=== PATIENT | female | born 1960 | race Caucasian/White ===

== ENCOUNTER 2024-04-21 09:04 | Outpatient (OUT) | payer OTHER, MEDICAID, SELFPAY ==
--- NOTE | 2024-04-21 | XR_ITS ---
[address] [address] Patient Name: LUÍS GERMAIN MRN: [id number] date: 1960 Sex: F Assigned Patient Location: Current Patient Location: Accession/Order Number: [id number] Exam Date: 04/21/2024 09:25 Report Date: 04/21/2024 10:36 At the request of: DEWAYNE RIVERA Procedure: XR ankle WILLI min 3V EXAMINATION: XR ankle WILLI min 3V, XR foot WILLI min 3V HISTORY: BILATERAL ANKLE PAIN COMPARISON: No relevant comparison available. FINDINGS: RIGHT FINDINGS: BONES: No acute fracture or dislocation. Marked degenerative changes of the midfoot and hindfoot with anterior plantar subluxation of the talus and tibia in relation to the calcaneus. Extensive heterotopic ossification. Multiple plates and screws transfix the first second and third tarsometatarsal joints. Single screw through the head of the first and second metatarsals. SOFT TISSUES: Negative. No visible soft tissue swelling. OTHER: Negative. LEFT FINDINGS: BONES: No acute fracture or dislocation. Marked degenerative changes of the midfoot and hindfoot with anterior plantar subluxation of the talus and tibia in relation to the calcaneus. Extensive heterotopic ossification. Remote fixation of the first tarsometatarsal joint with a medial plate and multiple screws. 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 SOFT TISSUES: Negative. No visible soft tissue swelling. OTHER: Negative. XR/XR ankle WILLI min 3V IMPRESSION: Severe bilateral degenerative changes with marked bony remodeling. Pes planus and anterior plantar subluxation of the talus in relation to the calcaneus Electronically authenticated by: LAURA MEYERS Date: 04/21/2024 10:36
--- NOTE | 2024-04-21 | XR_ITS ---
[address] [address] Patient Name: LUÍS GERMAIN MRN: [id number] date: 1960 Sex: F Assigned Patient Location: Current Patient Location: Accession/Order Number: [id number] Exam Date: 04/21/2024 09:05 Report Date: 04/21/2024 10:36 At the request of: DEWAYNE RIVERA Procedure: XR foot WILLI min 3V EXAMINATION: XR ankle WILLI min 3V, XR foot WILLI min 3V HISTORY: BILATERAL ANKLE PAIN COMPARISON: No relevant comparison available. FINDINGS: RIGHT FINDINGS: BONES: No acute fracture or dislocation. Marked degenerative changes of the midfoot and hindfoot with anterior plantar subluxation of the talus and tibia in relation to the calcaneus. Extensive heterotopic ossification. Multiple plates and screws transfix the first second and third tarsometatarsal joints. Single screw through the head of the first and second metatarsals. SOFT TISSUES: Negative. No visible soft tissue swelling. OTHER: Negative. LEFT FINDINGS: BONES: No acute fracture or dislocation. Marked degenerative changes of the midfoot and hindfoot with anterior plantar subluxation of the talus and tibia in relation to the calcaneus. Extensive heterotopic ossification. Remote fixation of the first tarsometatarsal joint with a medial plate and multiple screws. 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 SOFT TISSUES: Negative. No visible soft tissue swelling. OTHER: Negative. XR/XR foot WILLI min 3V IMPRESSION: Severe bilateral degenerative changes with marked bony remodeling. Pes planus and anterior plantar subluxation of the talus in relation to the calcaneus Electronically authenticated by: LAURA MEYERS Date: 04/21/2024 10:36
== END 2024-04-21 09:05 | disposition home or self-care (01) ==
LOC: EC 09:04
PROVIDERS: Visit Provider Podiatrist Foot & Ankle Surgery
DX: M79.672 Pain in left foot (principal); M79.671 Pain in right foot; M14.671 Charcot's joint, right ankle and foot; M14.672 Charcot's joint, left ankle and foot
CPT/HCPCS: 73610; 73630

== ENCOUNTER 2024-04-27 08:02 | Outpatient (OUT) | payer OTHER, MEDICAID, SELFPAY ==
--- NOTE | 2024-04-27 08:12 | CT_ITS ---
[address] [address] Patient Name: LUÍS GERMAIN MRN: [id number] date: 1960 Sex: F Assigned Patient Location: CT Current Patient Location: CT Accession/Order Number: [id number] Exam Date: 04/27/2024 08:18 Report Date: 04/27/2024 10:28 At the request of: DEWAYNE RIVERA Procedure: CT ankle LT wo con EXAMINATION: CT ankle LT wo con HISTORY: Charcot COMPARISON: 04/21/2024 TECHNIQUE: Multi-planar CT images were created without IV contrast. Dose reduction techniques were achieved by using automated exposure control and/or adjustment of mA and/or kV according to patient size and/or use of iterative reconstruction technique. FINDINGS: BONES: Severe degenerative changes of the midfoot and hindfoot. There is fragmented anterior calcaneus with anterior subluxation of the tibia fibula and talus in relation to the calcaneus. Severe degenerative changes with marked bony remodeling. Flattening of the plantar arch. Marked degenerative changes with joint space narrowing and subchondral cystic changes. Fusion hardware in the forefoot partially visualized SOFT TISSUES: Extensive soft tissue swelling EFFUSION: Large joint effusion OTHER: Negative. CT/CT ankle LT wo con IMPRESSION: Marked degenerative changes with extensive bony remodeling. 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 Electronically authenticated by: LAURA MEYERS Date: 04/27/2024 10:28
== END 2024-04-27 08:03 | disposition home or self-care (01) ==
LOC: CT 08:06
PROVIDERS: Visit Provider Podiatrist Foot & Ankle Surgery
DX: M14.672 Charcot's joint, left ankle and foot (principal)
CPT/HCPCS: 73700

== ENCOUNTER 2024-06-29 09:43 | Outpatient (OUT) | payer OTHER, SELFPAY ==
--- NOTE | 2024-06-29 | XR_ITS ---
The [address] [address] Patient Name: LUÍS GERMAIN MRN: [id number] date: 1960 Sex: F Assigned Patient Location: Current Patient Location: Accession/Order Number: [id number] Exam Date: 06/29/2024 09:44 Report Date: 06/29/2024 11:00 At the request of: DEWAYNE RIVERA Procedure: XR foot WILLI min 3V EXAMINATION: XR ankle WILLI min 3V, XR foot WILLI min 3V HISTORY: BILATERAL ANKLE PAIN COMPARISON: 04/21/2024 FINDINGS: RIGHT FINDINGS: BONES: No acute fracture. Marked degenerative changes with anterior subluxation of the talus in relation to the calcaneus and complete flattening of the plantar arch. Bony remodeling throughout the midfoot and hindfoot. Surgical fusion hardware with fixation across the first second and third tarsometatarsal joints. Single screw across the first and second metatarsal heads. SOFT TISSUES: Negative. No visible soft tissue swelling. OTHER: Negative. LEFT FINDINGS: BONES: No acute fracture. Marked degenerative changes with anterior subluxation of the talus in relation to the calcaneus and flattening of the plantar arch. Severe bony remodeling throughout the midfoot and hindfoot. Fusion of the first tarsometatarsal joint with a plate and multiple screws. Severe degenerative change first metacarpal phalangeal joint SOFT TISSUES: Negative. No visible soft tissue swelling. OTHER: Negative. XR/XR foot WILLI min 3V IMPRESSION: Bilateral marked degenerative changes with pes planus and anterior subluxation of the talus in relation to the calcaneus consistent with neuropathic osteoarthropathy Electronically authenticated by: LAURA MEYERS Date: 06/29/2024 11:00
--- NOTE | 2024-06-29 | XR_ITS ---
The [address] [address] Patient Name: LUÍS GERMAIN MRN: [id number] date: 1960 Sex: F Assigned Patient Location: Current Patient Location: Accession/Order Number: [id number] Exam Date: 06/29/2024 09:44 Report Date: 06/29/2024 11:00 At the request of: DEWAYNE RIVERA Procedure: XR ankle WILLI min 3V EXAMINATION: XR ankle WILLI min 3V, XR foot WILLI min 3V HISTORY: BILATERAL ANKLE PAIN COMPARISON: 04/21/2024 FINDINGS: RIGHT FINDINGS: BONES: No acute fracture. Marked degenerative changes with anterior subluxation of the talus in relation to the calcaneus and complete flattening of the plantar arch. Bony remodeling throughout the midfoot and hindfoot. Surgical fusion hardware with fixation across the first second and third tarsometatarsal joints. Single screw across the first and second metatarsal heads. SOFT TISSUES: Negative. No visible soft tissue swelling. OTHER: Negative. LEFT FINDINGS: BONES: No acute fracture. Marked degenerative changes with anterior subluxation of the talus in relation to the calcaneus and flattening of the plantar arch. Severe bony remodeling throughout the midfoot and hindfoot. Fusion of the first tarsometatarsal joint with a plate and multiple screws. Severe degenerative change first metacarpal phalangeal joint SOFT TISSUES: Negative. No visible soft tissue swelling. OTHER: Negative. XR/XR ankle WILLI min 3V IMPRESSION: Bilateral marked degenerative changes with pes planus and anterior subluxation of the talus in relation to the calcaneus consistent with neuropathic osteoarthropathy Electronically authenticated by: LAURA MEYERS Date: 06/29/2024 11:00
--- OUTSIDE RECORDS SUMMARY | 2024-06-29 10:06 | XMS_ITS | CCD ---
Author Organization [facility] CliniSyde Care Team Providers Care Change Analyst Name Role Phone MARY KATE MARS Unavailable Unavailable MARY KATE MARS Unavailable Unavailable MISC, DOCTOR Unavailable Unavailable MARY KATE MARS Unavailable Unavailable Pardeep Cordon Primary Care Provider Pardeep Cordon Primary Care Provider Pardeep Cordon DO Primary Care Provider Pardeep Cordon DO Primary Care Provider Pardeep Cordon DO Primary Care Provider Pardeep Cordon DO Primary Care Provider Pardeep Cordon DO Primary Care Provider Pardeep Cordon DO Primary Care Provider MARÍA, FERNANDA Referring Unavailable BRAVO, PARDEEP C Primary Care Unavailable MARÍA, FERNANDA Referring Unavailable BRAVO, PARDEEP C Primary Care Unavailable BRAVO, PARDEEP C Primary Care Unavailable MARÍA, FERNANDA Referring Unavailable BRAVO, PARDEEP C Primary Care Unavailable MARÍA, FERNANDA Referring Unavailable BRAVO, PARDEEP C Primary Care Unavailable MARÍA, FERNANDA Referring Unavailable MARQUISEAUD, PARDEEP C Primary Care Unavailable MARÍA, FERNANDA Referring Unavailable MARQUISEAUD, PARDEEP C Primary Care Unavailable MARÍA, FERNANDA Referring Unavailable BRAVO, PARDEEP C Primary Care Unavailable MARÍA, FERNANDA Referring Unavailable BRAVO, PARDEEP C Primary Care Unavailable Pardeep oCrdon DO Primary Care Provider PARDEEP CORDON C Primary Care Unavailable RAJESH ARAYA Unavailable BRAVO, PARDEEP C Referring Unavailable NADLAUREEN, PARDEEP C Primary Care Unavailable BRAVO, PARDEEP C Primary Care Unavailable BRAVO, PARDEEP C Primary Care Unavailable BRAVO, PARDEEP C Primary Care Unavailable BRAVO, PARDEEP C Referring Unavailable NADAUD, PARDEEP C Primary Care Unavailable MARÍA, FERNANDA Referring Unavailable PARDEEP CORDON Primary Care Unavailable PARDEEP CORDON Attending Unavailable PARDEEP CORDON Attending Unavailable PARDEEP CORDON Attending Unavailable Allergies Allergy Classification Reported Allergen(s) Allergy Type Date of Onset Reaction(s) Facility Penicillins (antibiotic) (1 source) Penicillins Drug Allergy 11-15-19 15 [facility] Sulfamethoxazole / Trimethoprim (1 source) Sulfamethoxazole / Trimethoprim Drug Allergy 11-15-19 15 [facility] (11 sources) Penicillins Propensity to adverse reactions to drug 11-15-19 15 [place], [place] (20 sources) Sulfamethoxazole / Trimethoprim Drug Allergy 11-15-19 15 [place], [place] (11 sources) Penicillins Propensity to adverse reactions to drug 11-15-19 15 [facility] Work Phone: Medications Current Medications Medication Drug Class(es) Dates Sig (Normalized) Sig (Original) Acetaminophen / Codeine (6 sources) Opioid Agonist Acetaminophen-C odeine (TYLENOL WITH CODEINE #3 PO) Take by mouth 4 times daily as needed. 0 Active bisoprolol fumarate 5 mg / hydroCHLOROthiazide 6.25 mg oral tablet (17 sources) Thiazide Diuretic, beta-Adrenergic [facility] Start: 08-21-2020 bisoprolol-hydr oCHLOROthiazide (ZIAC) 5-6.25 MG per tablet 24 hr buPROPion hydrochloride 300 mg extended release oral tablet (20 sources) Aminoketone take 1 tablet by mouth once daily in the morning buPROPion (WELLBUTRIN XL) 300 MG XL tablet Take 1 tablet by mouth every morning 0 Active busPIRone hydrochloride 30 mg oral tablet (20 sources) Start: 09-02-2020 busPIRone (BUSPAR) 30 MG tablet take 1 tablet by mouth twice josé miguel ly busPIRone (BUSPAR) 15 MG tablet Take 15 mg by mouth 2 times daily 0 Active calcium carbonate 1250 mg / cholecalciferol 125 unt oral tablet (16 sources) Vitamin D take 1 tablet by mouth twice daily Calcium 500-125 MG-UNIT TABS Take 1 tablet by mouth 2 times daily 0 Active celecoxib 200 mg oral capsule (20 sources) Nonsteroidal Anti-inflammatory Drug Start: 0 celecoxib (CELEBREX) 200 MG capsule take 1 capsule by mouth twice da april celecoxib (CELEBREX) 200 MG capsule Take 200 mg by mouth 2 times daily. 0 Active cholestyramine resin 4000 mg powder for oral suspension (14 sources) Bile Acid Sequestrant Start: 04-30-2022 cholestyramine (QUESTRAN) 4 GM/DOSE powder MIX 1 SCOOP IN 8 OUNCES OF LIQUID AND DRINK ONCE DAILY FOR 5 DAYS. 0 04/30/2022 Active cyclobenzaprine hydrochloride 10 mg oral tablet (14 sources) Muscle Relaxant Start: 04-30-2022 take 1 tablet by mouth twice daily as needed cyclobenzaprine (FLEXERIL) 10 MG tablet TAKE 1 TABLET BY MOUTH TWICE DAILY FOR 30 DAYS NEEDED 0 04/30/2022 Active ferrous sulfate 325 mg oral tablet (20 sources) take 1 tablet by mouth twice daily ferrous sulfate 325 (65 FE) MG tablet Take 1 tablet by mouth 2 times daily 0 Active FLUoxetine 40 mg oral capsule (17 sources) Serotonin Reuptake Inhibitor take 1 capsule by mouth once daily FLUoxetine (PROZAC) 40 MG capsule Take 1 capsule by mouth daily 0 Active gabapentin 300 mg oral capsule (13 sources) Anti-epileptic Agent Start: 07-18-2023 take 1 capsule by mouth three times daily gabapentin (NEURONTIN) 300 MG capsule Indications: Right foot pain TAKE 1 CAPSULE BY MOUTH THREE TIMES DAILY FOR 90 DAYS 90 capsule 2 07/18/2023 Active Start: 04-29-2023 End: 06-03-2023 take 1 capsule by mouth three times daily gabapentin (NEURONTIN) 300 MG capsule Indications: Right foot pain TAKE 1 CAPSULE BY MOUTH THREE TIMES DAILY FOR 90 DAYS 90 capsule 2 04/29/2023 Active Start: 08-12-2022 End: 02-21-2023 take 1 capsule by mouth three times daily gabapentin (NEURONTIN) 300 MG capsule Indications: Right foot pain TAKE 1 CAPSULE BY MOUTH THREE TIMES DAILY FOR 90 DAYS 90 capsule 2 01/22/2023 02/21/2023 Active Start: 07-24-2022 End: 10-22-2022 gabapentin (NEURONTIN) 100 M G capsule Take 1 capsule by mouth 3 times daily for 90 days. Intended supply: 30 days 90 capsule 2 07/24/2022 08/12/2022 Discontinued (Therapy completed) meloxicam 15 mg oral tablet (17 sources) Nonsteroidal Anti-inflammatory Drug take 1 tablet by mouth once daily meloxicam (MOBIC) 15 MG tablet Take 1 tablet by mouth daily 0 Active Misc. Devices MISC (13 sources) Start: 022 Misc. Devices MISC Indications: Charcot ankle, right , Right foot pain Please dispense 1 Qagan [place]ungin Boot Length: Lifetime 1 each 0 07/22/2022 Active ofloxacin 3 mg/ml ophthalmic solution (16 sources) Quinolone Antimicrobial Start: 021 ofloxacin (OCUFLOX) 0.3 % solution INSTILL 10 DROPS INTO AFFECTED EAR ONCE DAILY FOR 7 DAYS 0 11/30/2020 Active omeprazole 20 mg delayed release oral capsule (20 sources) Proton Pump Inhibitor Start: 015 take 1 capsule by mouth once daily omeprazole (PRILOSEC) 20 MG capsule Take 1 capsule by mouth daily. 30 capsule 0 11/15/2014 Active pantoprazole 20 mg delayed release oral tablet (1 source) Proton Pump Inhibitor Start: 023 take 1 tablet by mouth once daily pantoprazole (PROTONIX) 20 MG tablet Take 1 tablet by mouth daily 30 tablet 0 08/25/2023 Active SUMAtriptan 100 mg oral tablet (17 sources) Serotonin-1b and Serotonin-1d Receptor Agonist Start: 020 SUMAtriptan (IMITREX) 100 MG tablet traMADol hydrochloride 50 mg oral tablet (17 sources) Opioid Agonist take 1 tablet by mouth every six hours as needed for pain traMADol (ULTRAM) 50 MG tablet Take 1 tablet by mouth every 6 hours as needed for Pain. 0 Active valACYclovir 500 mg oral tablet (17 sources) Herpesvirus Nucleoside Analog DNA Polymerase Inhibitor, Herpes Simplex Virus Nucleoside Analog DNA Polymerase Inhibitor, Herpes Zoster Virus Nucleoside Analog DNA Polymerase Inhibitor Start: 020 valACYclovir (VALTREX) 500 MG tablet Completed/Discontinued Medications Medication Drug Class(es) Dates Sig (Normalized) Sig (Original) 10 ml lidocaine hydrochloride 10 mg/ml injection (20 sources) Antiarrhythmic, Amide Local Anesthetic Start: 06-17-2023 End: 06-17-2023 lidocaine PF 1 % injection Start: 12-10-2022 End: 12-10-2022 lidocaine PF 2 % injection Start: 12-10-2022 End: 12-10-2022 lidocaine PF 1 % injection Start: 10-28-2022 End: 10-28-2022 lidocaine PF 2 % injection Start: 10-28-2022 End: 10-28-2022 lidocaine PF 1 % injection Start: 08-15-2020 lidocaine (LID ODERM) 5 % 5 ml sodium chloride 9 mg/ml injection (2 sources) Start: 12-10-2022 End: 12-10-2022 sodium chloride flush 0.9 % injection Start: 10-28-2022 End: 10-28-2022 sodium chloride flush 0.9 % injection 1 ml triamcinolone acetonide 40 mg/ml prefilled syringe (2 sources) Corticosteroid Start: 12-10-2022 End: 12-10-2022 triamcinolone acetonide (KENALOG-40) injection Start: 10-28-2022 End: 10-28-2022 triamcinolone acetonide (ARON ALOG-40) injection Problems Active Problems Problem Classification Problem Date Documented Date Episodic/Chronic Abdominal pain (1 source) Epigastric pain; Translations: [Epigastric pain] Onset: 08-25-2023 Episodic Essential hypertension (2 sources) Essential (primary) hypertension; Translations: [Essential (primary) hypertension] Onset: 03-21-2023 Chronic Nonmalignant breast conditions (4 sources) Breasts asymmetrical; Translations: [Breast asymmetry] Chronic Nutritional deficiencies (2 sources) Vitamin D deficiency, unspecified; Translations: [Vitamin D deficiency, unspecified] Onset: 03-21-2023 Chronic Other connective tissue disease (10 sources) Pain in left foot; Translations: [Pain in left foot] Onset: 12-25-2022 Episodic Other connective tissue disease (18 sources) Pain in right foot; Translations: [Pain in right foot] Onset: 07-24-2022 Episodic Other connective tissue disease (19 sources) Neuralgia; Translations: [Neuralgia and neuritis, unspecified] Onset: 07-24-2022 Episodic Other nervous system disorders (5 sources) Lesion of right sciatic nerve; Translations: [Lesion of sciatic nerve, right lower limb] Onset: 05-19-2023 Chronic Other nervous system disorders (5 sources) Lesion of left sciatic nerve; Translations: [Lesion of sciatic nerve, left lower limb] Onset: 05-19-2023 Chronic Other nervous system disorders (1 source) Lesion of sciatic nerve, right lower limb; Translations: [Lesion of sciatic nerve, right lower limb] Onset: 05-19-2023 Chronic Other nervous system disorders (1 source) Lesion of sciatic nerve, left lower limb; Translations: [Lesion of sciatic nerve, left lower limb] Onset: 05-19-2023 Chronic Other nervous system disorders (2 sources) Chronic pain syndrome; Translations: [Chronic pain syndrome] Onset: 03-21-2023 Chronic Other non-traumatic joint disorders (19 sources) Charcot's joint of foot; Translations: [Charcot's joint, left ankle and foot] Onset: 07-24-2022 Chronic Other non-traumatic joint disorders (1 source) Charcot's joint, right ankle and foot; Translations: [Charcot's joint, right ankle and foot] Onset: 07-24-2022 Chronic Other nutritional; endocrine; and metabolic disorders (2 sources) Morbid (severe) obesity due to excess calories; Translations: [Morbid (severe) obesity due to excess calories] Onset: 03-21-2023 Chronic Other screening for suspected conditions (not mental disorders or infectious disease) (12 sources) Encounter for screening for malignant neoplasm of cervix; Translations: [Patient encounter status] Onset: 08-04-2018 Episodic Residual codes; unclassified (1 source) Postmenopausal state; Translations: [Post-menopausal] Episodic Residual codes; unclassified (2 sources) Patient encounter status; Translations: [Pain, unspecified] Episodic Residual codes; unclassified (1 source) Pain, unspecified; Translations: [Pain, unspecified] Onset: 05-27-2023 Episodic Thyroid disorders (2 sources) Hypothyroidism, unspecified; Translations: [Hypothyroidism, unspecified] Onset: 03-21-2023 Chronic Unclassified (1 source) Patient encounter status; Translations: [Screening mammogram, encounter for] Past or Other Problems Problem Classification Problem Date Documented Da te Episodic/Chronic Other aftercare (14 sources) Drug therapy finding; 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] Onset: 08-12-2022 Episodic Other connective tissue disease (1 source) Pain in left foot; Translations: [Pain in left foot] Onset: 12-25-2022 Episodic Other connective tissue disease (1 source) Pain in right foot; Translations: [Pain in right foot] Onset: 07-24-2022 Episodic Other connective tissue disease (1 source) Neuralgia and neuritis, unspecified; Translations: [Neuralgia and neuritis, unspecified] Onset: 07-24-2022 Episodic Spondylosis; intervertebral disc disorders; other back problems (14 sources) Sciatica; Translations: [Sciatica, left side] Onset: 11-11-2022 Episodic Results Test Name Value Interpretation Reference Range Facility Basic Metabolic Profon 08-25 Anion gap [Moles/Vol] 10 mmol/L Normal 9-17 [facility] Comment on above: Performed By: #### L IVP, TROPI, MG, LIP, BMP, CDP #### [facility] [address] [facility] [place] [address] Urology Surgeon: Rodrigue Kurtz DO Calcium [Mass/Vol] 9.1 mg/dL Normal 8.6-10.4 [facility] Comment on above: Performed By: #### L IVP, TROPI, MG, LIP, BMP, CDP #### [facility] [address] [facility] [place] [address] Urology Surgeon: Rodrigue Kurtz DO Chloride [Moles/Vol] 103 mmol/L Normal 98-107 [facility] Comment on above: Performed By: #### L IVP, TROPI, MG, LIP, BMP, CDP #### [facility] [address] [facility] [place] [address] Urology Surgeon: Rodrigue Kurtz DO CO2 [Moles/Vol] 27 mmol/L Normal 20-31 [facility] Comment on above: Performed By: #### L IVP, TROPI, MG, LIP, BMP, CDP #### [facility] [address] [facility] [place] [address] Urology Surgeon: Rodrigue Kurtz DO Creatinine [Mass/Vol] 0.5 mg/dL Normal 0.5-0.9 [facility] Comment on above: Performed By: #### L IVP, TROPI, MG, LIP, BMP, CDP #### [facility] [address] [facility] [place] [address] Urology Surgeon: Rodrigue Kurtz DO GFR/1.73 sq M.predicted among non-blacks MDRD (S/P/Bld) [Vol rate/Area] mL/min/{1.73_m2} Normal >60 [facility] Comment on above: Result Comment: These results are not intended for use in patients <18 years of age. eGFR results are calculated without a race factor using the 2020 CKD-EPI equation. Careful clinical correlation is recommended, particularly when comparing to results calculated using previous equations. The CKD-EPI equation is less accurate in patients with extremes of muscle mass, extra-renal metabolism of creatine, excessive creatine ingestion, or following therapy that affects renal tubular secretion. Performed By: #### L IVP, TROPI, MG, LIP, BMP, CDP #### [facility] [address] [facility] [place] [address] Urology Surgeon: Rodrigue Kurtz DO Glucose [Mass/Vol] 92 mg/dL Normal 70-99 [facility] Comment on above: Performed By: #### L IVP, TROPI, MG, LIP, BMP, CDP #### [facility] [address] [facility] [place] [address] Urology Surgeon: Rodrigue Kurtz DO Potassium [Moles/Vol] 4.2 mmol/L Normal 3.7-5.3 [facility] Comment on above: Performed By: #### L IVP, TROPI, MG, LIP, BMP, CDP #### [facility] [address] [facility] [place] [address] Urology Surgeon: Rodrigue Kurtz DO Sodium [Moles/Vol] 140 mmol/L Normal 135-144 [facility] Comment on above: Performed By: #### L IVP, TROPI, MG, LIP, BMP, CDP #### [facility] [address] [facility] [place] [address] Urology Surgeon: Rodrigue Kurtz DO Urea nitrogen [Mass/Vol] 24 mg/dL High 8-23 [facility] Comment on above: Performed By: #### L IVP, TROPI, MG, LIP, BMP, CDP #### [facility] [address] [place] [address] Urology Surgeon: Rodrigue Kurtz DO CBC with Diffon 08-25-2023 Abs. Basophil 0.00 k/uL Normal 0.0-0.2 [facility] Comment on above: Performed By: #### L IVP, TROPI, MG, LIP, BMP, CDP #### [facility] [address] [place] [address] Urology Surgeon: Rodrigue Kurtz DO Abs.Neutrophil (Seg) 3.70 k/uL Normal 1.3-9.1 [facility] Comment on above: Performed By: #### L IVP, TROPI, MG, LIP, BMP, CDP #### [facility] [address] [place] [address] Urology Surgeon: Rodrigue Kurtz DO Basophils/100 WBC (Bld) 1 % Normal 0-2 [facility] Comment on above: Performed By: #### L IVP, TROPI, MG, LIP, BMP, CDP #### [facility] [address] [place] [address] Urology Surgeon: Rodrigue Kurtz DO Eosinophils (Bld) [#/Vol] 0.10 10*3/uL Normal 0.0-0.4 [facility] Comment on above: Performed By: #### L IVP, TROPI, MG, LIP, BMP, CDP #### [facility] [address] [place] [address] Urology Surgeon: Rodrigue Kurtz DO Eosinophils/100 WBC (Bld) 2 % Normal 0-4 [facility] Comment on above: Performed By: #### L IVP, TROPI, MG, LIP, BMP, CDP #### [facility] [address] [facility] [place] [address] Urology Surgeon: Rodrigue Kurtz DO Erythrocyte distribution width (RBC) [Ratio] 13.8 % Normal 11.5-14.9 [facility] Comment on above: Performed By: #### L IVP, TROPI, MG, LIP, BMP, CDP #### [facility] [address] [facility] [place] [address] Urology Surgeon: Rodrigue Kurtz DO Hematocrit (Bld) [Volume fraction] 38.3 % Normal 36-46 [facility] Comment on above: Performed By: #### L IVP, TROPI, MG, LIP, BMP, CDP #### [facility] [place] [facility] [place] [address] Urology Surgeon: Rodrigue Kurtz DO Hemoglobin (Bld) [Mass/Vol] 12.8 g/dL Normal 12.0-16.0 [facility] Comment on above: Performed By: #### L IVP, TROPI, MG, LIP, BMP, CDP #### [facility] [place] [place] [address] Urology Surgeon: Rodrigue Kurtz DO Lymphocytes (Bld) [#/Vol] 1.60 10*3/uL Normal 1.0-4.8 [facility] Comment on above: Performed By: #### L IVP, TROPI, MG, LIP, BMP, CDP #### [facility] [address] [place] [address] Urology Surgeon: Rodrigue Kurtz DO Lymphocytes/100 WBC (Bld) 26 % Normal 24-44 [facility] Comment on above: Performed By: #### L IVP, TROPI, MG, LIP, BMP, CDP #### [facility] [address] [place] [address] Urology Surgeon: Rodrigue Kurtz DO MCH (RBC) [Entitic mass] 31.6 pg Normal 26-34 [facility] Comment on above: Performed By: #### L IVP, TROPI, MG, LIP, BMP, CDP #### [facility] [address] [place] [address] Urology Surgeon: Rodrigue Kurtz DO MCHC (RBC) [Mass/Vol] 33.3 g/dL Normal 31-37 [facility] Comment on above: Performed By: #### L IVP, TROPI, MG, LIP, BMP, CDP #### [facility] [place] [place] [address] Urology Surgeon: Rodrigue Kurtz DO MCV (RBC) [Entitic vol] 94.9 fL Normal 80-100 [facility] Comment on above: Performed By: #### L IVP, TROPI, MG, LIP, BMP, CDP #### [facility] [place] [place] [address] Urology Surgeon: Rodrigue Kurtz DO Monocytes (Bld) [#/Vol] 0.60 10*3/uL Normal 0.1-1.3 [facility] Comment on above: Performed By: #### L IVP, TROPI, MG, LIP, BMP, CDP #### [facility] [place] [place] [address] Urology Surgeon: Rodrigue Kurtz DO Monocytes/100 WBC (Bld) 11 % High 1-7 [facility] Comment on above: Performed By: #### L IVP, TROPI, MG, LIP, BMP, CDP #### [facility] [address] [place] [address] Urology Surgeon: Rodrigue Kurtz DO Neutrophil (Seg) 60 % Normal 36-66 [facility] Comment on above: Performed By: #### L IVP, TROPI, MG, LIP, BMP, CDP #### [facility] [address] [place] [address] Urology Surgeon: Rodrigue Kurtz DO Platelet mean volume (Bld) [Entitic vol] 8.1 fL Normal 6.0-12.0 [facility] Comment on above: Performed By: #### L IVP, TROPI, MG, LIP, BMP, CDP #### [facility] [address] [place] [address] Urology Surgeon: Rodrigue Kurtz DO Platelets (Bld) [#/Vol] 289 10*3/uL Normal 150-450 [facility] Comment on above: Performed By: #### L IVP, TROPI, MG, LIP, BMP, CDP #### [facility] [address] [place] [address] Urology Surgeon: Rodrigue Kurtz DO RBC (Bld) [#/Vol] 4.04 10*6/uL Normal 4.0-5.2 [facility] Comment on above: Performed By: #### L IVP, TROPI, MG, LIP, BMP, CDP #### [facility] [address] [place] [address] Urology Surgeon: Rodrigue Kurtz DO WBC (Bld) [#/Vol] 6.0 10*3/uL Normal 3.5-11.0 [facility] Comment on above: Performed By: #### L IVP, TROPI, MG, LIP, BMP, CDP #### [facility] [place] [place] [address] Urology Surgeon: Rodrigue Kurtz DO CTA CHEST ABDOMEN PELVIS W C [facility] 08-25-2023 CTA CHEST ABDOMEN PELVIS W CONTRAST EXAMINATION: CTA OF THE CHEST, ABDOMEN AND PELVIS WITH CONTRAST 08/25/2023 10:07 am: TECHNIQUE: CTA of the chest, abdomen and pelvis was performed after the administration of intravenous contrast. Multiplanar reformatted images are provided for review. MIP images are provided for review. Automated exposure control, iterative reconstruction, and/or weight based adjustment of the mA/kV was utilized to reduce the radiation dose to as low as reasonably achievable. COMPARISON: CT abdomen pelvis 11/15/2014 HISTORY: ORDERING SYSTEM PROVIDED HISTORY: epigastric pain, radiation through to back, unable to visualize aorta on POCUS, TECHNOLOGIST PROVIDED HISTORY: epigastric pain, radiation through to back, unable to visualize aorta on POCUS, Decision Support Exception - unselect if not a suspected or confirmed emergency medical condition->Emergency Medical Condition (MA) Reason for Exam: epigastric pain, radiation through to back, unable to visualize aorta on POCUS, Additional signs and symptoms: HTN FINDINGS: CTA CHEST: Vascular: No evidence of thoracic aortic aneurysm or dissection. Mild atherosclerotic calcifications. No acute abnormality of the aorta. Pulmonary arteries show no evidence for acute pulmonary embolism. Mediastinum: The cardiac size is normal. Mild coronary artery calcifications.. There is no significant mediastinal, hilar or axillary lymphadenopathy. The thyroid gland shows no significant abnormalities. The esophagus shows no significant abnormalities. Lungs/Pleura: 11 mm nonspecific patchy ground-glass density in the posteromedial middle lobe along the minor fissure. No significant solid lung nodule or mass. No focal consolidation. No pleural effusion or pneumothorax. Soft Tissues/Bones: No acute bone or soft tissue abnormality. CTA ABDOMEN: Abdominal aorta/Branches: No evidence for aneurysm or dissection. No acute process. Satisfactory enhancement of celiac trunk, SMA, RUFUS, renal arteries. Organs: The liver, spleen, pancreas, kidneys and adrenal glands show no significant abnormality. Gallbladder shows no significant abnormality. GI/Bowel: There is limited evaluation due to absence of oral contrast. Postsurgical changes of gastric bypass. No bowel obstruction. No acute infective process. Peritoneum/Retroperit oneum: No free fluid or lymphadenopathy. Bones/Soft Tissues: No acute abnormality of the bones. The superficial soft tissues show no acute process. CTA PELVIS: Aorta/Iliacs: Normal enhancement. No aneurysm or dissection. Other: Pelvic organs unremarkable. Bones/Soft Tissues: No acute abnormality of the bones. The superficial soft tissues show no acute process. IMPRESSION: 1. No evidence for aortic aneurysm or dissection. 2. Nonspecific 11 mm ground-glass density in the posteromedial lateral segment middle lobe. Please see follow-up recommendations below. 3. No acute infective or inflammatory process. RECOMMENDATIONS: 11 mm ground-glass pulmonary nodule.Per Fleischner Society Guidelines, recommend a non-contrast Chest CT at 6 months to confirm persistence, then additional non-contrast Chest CTs every 2 years until 5 years. If nodule grows or develops solid component(s), consider resection.These guidelines do not apply to immunocompromised patients and patients with cancer. Follow up in patients with significant comorbidities as clinically warranted. For lung cancer screening, adhere to Lung-RADS guidelines. Reference: Radiology. 2017; 284(1):228-43. Interpreted by: Louie Kamara MD Signed by: Louie Kamara MD 08/25/23 Final result Normal [facility] Lactic Acidon 08-25-2023 Lactate [Moles/Vol] 0.7 mmol/L Normal 0.5-2.2 [facility] Comment on above: Performed By: #### L ACTIC #### [facility] [address] [facility] [place] [address] Urology Surgeon: Rodrigue Kurtz DO Lipaseon 08-25-2023 Lipase [Catalytic activity/Vol] 31 U/L Normal 13-60 [facility] Comment on above: Performed By: #### L IVP, TROPI, MG, LIP, BMP, CDP #### [facility] [address] [facility] [place] [address] Urology Surgeon: Rodrigue Kurtz DO Liver Profileon 08-25-2023 Albumin [Mass/Vol] 4.4 g/dL Normal 3.5-5.2 [facility] Comment on above: Performed By: #### L IVP, TROPI, MG, LIP, BMP, CDP #### [facility] [address] [facility] [place] [address] Urology Surgeon: Rodrigue Kurtz DO Alkaline Phos 109 U/L High 35-104 [facility] Comment on above: Performed By: #### L IVP, TROPI, MG, LIP, BMP, CDP #### [facility] [address] [place] [address] Urology Surgeon: Rodrigue Kurtz DO ALT [Catalytic activity/Vol] 31 U/L Normal 5-33 [facility] Comment on above: Performed By: #### L IVP, TROPI, MG, LIP, BMP, CDP #### [facility] [address] [place] [address] Urology Surgeon: Rodrigue Kurtz DO AST [Catalytic activity/Vol] 49 U/L High <32 [facility] Comment on above: Performed By: #### L IVP, TROPI, MG, LIP, BMP, CDP #### [facility] [address] [facility] [place] [address] Urology Surgeon: Rodrigue Kurtz DO Bilirubin [Mass/Vol] 0.5 mg/dL Normal 0.3-1.2 [facility] Comment on above: Performed By: #### L IVP, TROPI, MG, LIP, BMP, CDP #### [facility] [address] [facility] [place] [address] Urology Surgeon: Rodrigue Kurtz DO Bilirubin, Indirect 0.4 mg/dL Normal 0.0-1.0 [facility] Comment on above: Performed By: #### L IVP, TROPI, MG, LIP, BMP, CDP #### [facility] [address] [facility] [place] [address] Urology Surgeon: Rodrigue Kurtz DO Bilirubin.indirect [Mass/Vol] 0.1 mg/dL Normal <0.3 [facility] Comment on above: Performed By: #### L IVP, TROPI, MG, LIP, BMP, CDP #### [facility] [address] [facility] [place] [address] Urology Surgeon: Rodrigue Kurtz DO Protein [Mass/Vol] 7.1 g/dL Normal 6.4-8.3 [facility] Comment on above: Performed By: #### L IVP, TROPI, MG, LIP, BMP, CDP #### [facility] [address] [place] [address] Urology Surgeon: Rodrigue Kurtz DO Magnesiumon 08-25-2023 Magnesium [Mass/Vol] 2.1 mg/dL Normal 1.6-2.6 [facility] Comment on above: Performed By: #### L IVP, TROPI, MG, LIP, BMP, CDP #### [facility] [place] [place] [address] Urology Surgeon: Rodrigue Kurtz DO Troponinon 08-25-2023 Troponin, High Sens 13 ng/L Normal 0-14 [facility] Comment on above: Result Comment: High Sensitivity Troponin values cannot be compared with other Troponin methodologies. Performed By: #### L IVP, TROPI, MG, LIP, BMP, CDP #### [facility] [place] [place] [address] Urology Surgeon: Rodrigue Kurtz DO UA w/Reflex Cultureon 2022 Bilirubin, SemiQt,Ur Negative Normal NEG [facility] Comment on above: Performed By: #### U AX #### [facility] [place] [place] [address] Urology Surgeon: Rodrigue Kurtz DO Blood, Urine Negative Normal NEG [facility] Comment on above: Performed By: #### U AX #### [facility] [place] [address] Urology Surgeon: Rodrigue Kurtz DO Clarity (U) Clear Normal CLEAR [facility] Comment on above: Performed By: #### U AX #### [facility] [place] [place] [address] Urology Surgeon: Rodrigue Kurtz DO Color (U) Yellow Normal YEL [facility] Comment on above: Performed By: #### U AX #### [facility] [address] [place] [address] Urology Surgeon: Rodrigue Kurtz DO Comment Microscopic exam not performed based on chemical results unless requested in Normal [facility] Comment on above: Result Comment: orig inal order. Performed By: #### U AX #### [facility] [place] [place] [address] Urology Surgeon: Rodrigue Kurtz DO Glucose Ql (U) Negative Normal NEG [facility] Comment on above: Performed By: #### U AX #### [facility] [address] [place] [address] Urology Surgeon: Rodrigue Kurtz DO Ketones Ql (U) Negative Normal NEG [facility] Comment on above: Performed By: #### U AX #### [facility] [address] [place] [address] Urology Surgeon: Rodrigue Kurtz DO Leukocyte esterase Test strip Ql (U) Negative Normal NEG [facility] Comment on above: Performed By: #### U AX #### [facility] [address] [place] [address] Urology Surgeon: Rodrigue Kurtz DO Nitrite,Ur Negative Normal NEG [facility] Comment on above: Performed By: #### U AX #### [facility] [address] [place] [address] Urology Surgeon: Rodrigue Kurtz DO PH,Ur 6.0 Normal 5.0-8.0 [facility] Comment on above: Performed By: #### U AX #### [facility] [address] [place] [address], [place] [address] Urology Surgeon: Rodrigue Kurtz DO Protein Ql (U) Negative Normal NEG [facility] Comment on above: Performed By: #### U AX #### [facility] [address] [facility] [place] [address] Urology Surgeon: Rodrigue Kurtz DO Spec. [place],Ur 1.020 Normal 1.000-1.[address] [facility] Comment on above: Performed By: #### U AX #### [facility] [address] [facility] [place] [address] Urology Surgeon: Rodrigue Kurtz DO Urobilinogen,Ur Normal Normal 0.0-1.0 [facility] Comment on above: Performed By: #### U AX #### [facility] [address] [place] [address]. [place] [address] Urology Surgeon: Rodrigue Kurtz DO XAVIER ISHAAN DIGITAL SCREEN SELF REFERRAL W OR WO CAD BILATERALon 08-20-2023 XAVIER ISHAAN DIGITAL SCREEN SELF REFERRAL W OR WO CAD BILATERAL EXAMINATION: SCREENING DIGITAL BILATERAL MAMMOGRAM WITH TOMOSYNTHESIS, 08/20/2023 TECHNIQUE: Screening mammography of the bilateral breasts was performed with tomosynthesis. 2D standard and 3D tomosynthesis combination imaging performed through both breasts in the MLO and CC projection. Computer aided detection was utilized in the interpretation of this exam. COMPARISON: 20 August 2022; 07 May 2021 HISTORY: Screening. Positive family history of breast cancer; sister at age 62. No hormonal replacement therapy or breast interventions. FINDINGS: Breasts are composed of scattered fibroglandular density. No skin thickening, nipple contour changes, suspicious calcifications, suspicious masses, areas of architectural distortion or significant interval changes are noted. IMPRESSION: No evidence of malignancy. Advise annual screening mammography. BI-RADS 1 BIRADS: BIRADS - CATEGORY 1 Negative, no evidence of malignancy. Normal interval follow-up is recommended in 12 months. OVERALL ASSESSMENT - NEGATIVE A letter of notification will be sent to the patient regarding the results. [employer] recommends annual mammograms for women 40 years and older. Interpreted by: Eloisa Feldman MD Signed by: Eloisa Feldman MD 08/20/23 Final result Normal [facility] CBCon 03-21-2023 Erythrocyte distribution width (RBC) [Ratio] 13.1 % Normal 11.5-14.9 [facility] Comment on above: Performed By: #### C P, FT4, LIPR, TSH, CBC ####[facility] [id number] [place], [place] [address])[phone] Director: Rodrigue Kurtz DO#### VD25, UA ####[address] [address])[phone] Director: Jose Fraser MD Hematocrit (Bld) [Volume fraction] 38.5 % Normal 36-46 [facility] Comment on above: Performed By: #### C P, FT4, LIPR, TSH, CBC ####[facility] [address] [place], [place] [address])[phone] Director: Rodrigue Kurtz DO#### VD25, UA ####[address] [address] Lab Director: Jose Fraser MD Hemoglobin (Bld) [Mass/Vol] 12.8 g/dL Normal 12.0-16.0 [facility] Comment on above: Performed By: #### C P, FT4, LIPR, TSH, CBC ####[facility] [id number] [place], [place] [address])[phone] Director: Rodrigue Kurtz DO#### VD25, UA ####[address] [address] Lab Director: Jose Fraser MD MCH (RBC) [Entitic mass] 31.5 pg Normal 26-34 [facility] Comment on above: Performed By: #### C P, FT4, LIPR, TSH, CBC ####[facility] [address] [place], [place] [phone])[phone] Director: Rodrigue Kurtz DO#### VD25, UA ####[address] [phone] Director: Jose Fraser MD MCHC (RBC) [Mass/Vol] 33.3 g/dL Normal 31-37 [facility] Comment on above: Performed By: #### C P, FT4, LIPR, TSH, CBC ####[facility] [address] [place], [place] [phone])[phone] Director: Rodrigue Kurtz DO#### VD25, UA ####[address] [phone])[phone] Director: Jose Fraser MD MCV (RBC) [Entitic vol] 94.6 fL Normal 80-100 [facility] Comment on above: Performed By: #### C P, FT4, LIPR, TSH, CBC ####[facility] [address] [place], [place] [phone])[phone] Director: Rodrigue Kurtz DO#### VD25, UA ####[address] [phone] Director: Jose Fraser MD Platelet mean volume (Bld) [Entitic vol] 8.0 fL Normal 6.0-12.0 [facility] Comment on above: Performed By: #### C P, FT4, LIPR, TSH, CBC ####[facility] [id number] [place], [place] [id number])[phone] Director: Rodrigue Kurtz DO#### VD25, UA ####[address] [place], [place] [phone])[phone] Director: Jose Fraser MD Platelets (Bld) [#/Vol] 243 10*3/uL Normal 150-450 [facility] Comment on above: Performed By: #### C P, FT4, LIPR, TSH, CBC ####[facility] [address] [place], [place] [phone])[phone] Director: Rodrigue Kurtz DO#### VD25, UA ####[address] [place], [place] [phone] Director: Jose Fraser MD RBC (Bld) [#/Vol] 4.07 10*6/uL Normal 4.0-5.2 [facility] Comment on above: Performed By: #### C P, FT4, LIPR, TSH, CBC ####[facility] [address] [place], [place] [phone] Director: Rodrigue Kurtz DO#### VD25, UA ####[address] [address] Lab Director: Jose Fraser MD WBC (Bld) [#/Vol] 5.6 10*3/uL Normal 3.5-11.0 [facility] Comment on above: Performed By: #### C P, FT4, LIPR, TSH, CBC ####[facility] [address] [place], [place] [phone] Director: Rodrigue Kurtz DO#### VD25, UA ####[address] [phone] Director: Jose Fraser MD Erythrocyte distribution width (RBC) [Ratio] 13.1 % 11.5 - 14.9 % [facility] Hematocrit (Bld) [Volume fraction] 38.5 % 36 - 46 % [facility] Hemoglobin (Bld) [Mass/Vol] 12.8 g/dL 12.0 - 16.0 g/dL [facility] MCH (RBC) [Entitic mass] 31.5 pg 26 - 34 pg [facility] MCHC (RBC) [Mass/Vol] 33.3 g/dL 31 - 37 g/dL [facility] MCV (RBC) [Entitic vol] 94.6 fL 80 - 100 fL [facility] Platelet mean volume (Bld) [Entitic vol] 8.0 fL 6.0 - 12.0 fL [facility] Platelets (Bld) [#/Vol] 243 10*3/uL [facility] RBC (Bld) [#/Vol] 4.07 10*6/uL 4.0 - 5.2 m/uL [facility] WBC other (Bld) [#/Vol] 5.6 [facility] Comp Metabolic Profon 2022 Albumin [Mass/Vol] 4.3 g/dL Normal 3.5-5.2 [facility] Comment on above: Performed By: #### C P, FT4, LIPR, TSH, CBC ####[facility] [address] [place] [address] Lab Director: Rodrigue Kurtz DO#### VD25, UA ####[address] [phone] Lab Director: Jose Fraser MD Alkaline Phos 104 U/L Normal 35-104 [facility] Comment on above: Performed By: #### C P, FT4, LIPR, TSH, CBC ####[facility] [address] [place] [address] Lab Director: Rodrigue Kurtz DO#### VD25, UA ####[address] [place] [address] Lab Director: Jose Fraser MD ALT [Catalytic activity/Vol] 18 U/L Normal 5-33 [facility] Comment on above: Performed By: #### C P, FT4, LIPR, TSH, CBC ####[facility] [id number] [place], [place] [phone] Director: Rodrigue Kurtz DO#### VD25, UA ####[address] [address] Lab Director: Jose Fraser MD Anion gap [Moles/Vol] 8 mmol/L Low 9-17 [facility] Comment on above: Performed By: #### C P, FT4, LIPR, TSH, CBC ####[facility] [address] [place] [address] Lab Director: Rodrigue Kurtz DO#### VD25, UA ####[address] [address] Lab Director: Jose Fraser MD AST [Catalytic activity/Vol] 25 U/L Normal <32 [facility] Comment on above: Performed By: #### C P, FT4, LIPR, TSH, CBC ####[facility] [address] [place] [address] Lab Director: Rodrigue Kurtz DO#### VD25, UA ####[address] [address] Lab Director: Jose Fraser MD Bilirubin [Mass/Vol] 0.5 mg/dL Normal 0.3-1.2 [facility] Comment on above: Performed By: #### C P, FT4, LIPR, TSH, CBC ####[facility] [id number] [place] [address] Lab Director: Rodrigue Kurtz DO#### VD25, UA ####[address] [address] Lab Director: Jose Fraser MD Calcium [Mass/Vol] 9.3 mg/dL Normal 8.6-10.4 [facility] Comment on above: Performed By: #### C P, FT4, LIPR, TSH, CBC ####[facility] [id number] [place] [address] Lab Director: Rodrigue Kurtz DO#### VD25, UA ####[address] [place] [address] Lab Director: Jose Fraser MD Chloride [Moles/Vol] 104 mmol/L Normal 98-107 [facility] Comment on above: Performed By: #### C P, FT4, LIPR, TSH, CBC ####[facility] [address] [place], [place] [phone] Director: Rodrigue Kurtz DO#### VD25, UA ####[address] [address] Lab Director: Jose Fraser MD CO2 [Moles/Vol] 29 mmol/L Normal 20-31 [facility] Comment on above: Performed By: #### C P, FT4, LIPR, TSH, CBC ####[facility] [id number] [place] [address] Lab Director: Rodrigue Kurtz DO#### VD25, UA ####[address] [address] Lab Director: Jose Fraser MD Creatinine [Mass/Vol] 0.44 mg/dL Low 0.50-0.90 [facility] Comment on above: Performed By: #### C P, FT4, LIPR, TSH, CBC ####[facility] [id number] [place] [address] Lab Director: Rodrigue Kurtz DO#### VD25, UA ####[address] [address] Lab Director: Jose Fraser MD GFR/1.73 sq M.predicted among non-blacks MDRD (S/P/Bld) [Vol rate/Area] mL/min/{1.73_m2} Normal >60 [facility] Comment on above: Result Comment: These results are not intended for use in patients <18 years of age. eGFR results are calculated without a race factor using the 2020 CKD-EPI equation. Careful clinical correlation is recommended, particularly when comparing to results calculated using previous equations. The CKD-EPI equation is less accurate in patients with extremes of muscle mass, extra-renal metabolism of creatine, excessive creatine ingestion, or following therapy that affects renal tubular secretion. Performed By: #### C P, FT4, LIPR, TSH, CBC ####[facility] [id number] [place] [address] Lab Director: Rodrigue Kurtz DO#### VD25, UA ####[address] [address] Lab Director: Jose Fraser MD Glucose [Mass/Vol] 81 mg/dL Normal 70-99 [facility] Comment on above: Performed By: #### C P, FT4, LIPR, TSH, CBC ####[facility] [id number] [place] [address] Lab Director: Rodrigue Kurtz DO#### VD25, UA ####[address] [address] Lab Director: Jose Fraser MD Potassium [Moles/Vol] 4.0 mmol/L Normal 3.7-5.3 [facility] Comment on above: Performed By: #### C P, FT4, LIPR, TSH, CBC ####[facility] [id number] [place] [address] Lab Director: Rodrigue Kurtz DO#### VD25, UA ####[address] [address] Lab Director: Jose Fraser MD Protein [Mass/Vol] 6.9 g/dL Normal 6.4-8.3 [facility] Comment on above: Performed By: #### C P, FT4, LIPR, TSH, CBC ####[facility] [id number] [place], [place] [phone] Director: Rodrigue Kurtz DO#### VD25, UA ####[facility] [place] [address] Lab Director: Jose Fraser MD Sodium [Moles/Vol] 141 mmol/L Normal 135-144 [facility] Comment on above: Performed By: #### C P, FT4, LIPR, TSH, CBC ####[facility] [id number] [place] [address] Lab Director: Rodrigue Kurtz DO#### VD25, UA ####[address] [place] [address] Lab Director: Jose Fraser MD Urea nitrogen [Mass/Vol] 15 mg/dL Normal 05-21 [facility] Comment on above: Performed By: #### C P, FT4, LIPR, TSH, CBC ####[facility] [id number] [place] [address] Lab Director: Rodrigue Kurtz DO#### VD25, UA ####[facility] [place] [address] Lab Director: Jose Fraser MD Comprehensive Metabolic Pane [facility] 03-21-2023 Albumin [Mass/Vol] 4.3 g/dL 3.5 - 5.2 g/dL [facility] ALP [Catalytic activity/Vol] 104 U/L 35 - 104 U/L [facility] ALT [Catalytic activity/Vol] 18 U/L 5 - 33 U/L [facility] Anion gap [Moles/Vol] 8 mmol/L Low 9 - 17 mmol/L [facility] AST [Catalytic activity/Vol] 25 U/L NINF - 32 U/L [facility] Bilirubin [Mass/Vol] 0.5 mg/dL 0.3 - 1 .2 mg/dL [facility] Calcium [Mass/Vol] 9.3 mg/dL 8.6 - 10. 4 mg/dL [facility] Chloride [Moles/Vol] 104 mmol/L 98 - 10 7 mmol/L [facility] CO2 [Moles/Vol] 29 mmol/L 20 - 31 mmol/L [facility] Creatinine [Mass/Vol] 0.44 mg/dL Low 0.50 - 0.90 mg/dL [facility] GFR/1.73 sq M.predicted MDRD (S/P/Bld) [Vol rate/Area] - PINF [facility] Comment on above: These results are not intended for use in patients <18 years of age. eGFR results are calculated without a race factor using the 2020 CKD-EPI equation. Careful clinical correlation is recommended, particularly when comparing to results calculated using previous equations. The CKD-EPI equation is less accurate in patients with extremes of muscle mass, extra-renal metabolism of creatine, excessive creatine ingestion, or following therapy that affects renal tubular secretion. Glucose [Mass/Vol] 81 mg/dL 70 - 99 mg/dL [facility] Interpretation and review of laboratory results Abnormal [facility] Potassium [Moles/Vol] 4.0 mmol/L 3.7 - 5.3 mmol/L [facility] Protein [Mass/Vol] 6.9 g/dL 6.4 - 8.3 g/dL [facility] Sodium [Moles/Vol] 141 mmol/L 135 - 144 mmol/L [facility] Urea nitrogen [Mass/Vol] 15 mg/dL 8 - 23 mg/dL [facility] Lipid Panelon 03-21-2022 Cholesterol [Mass/Vol] 194 mg/dL NINF - 200 mg/dL [facility] Comment on above: Cholesterol Guidelines: <200 Desirable 200-240 Borderline >240 Undesirable Cholesterol in HDL [Mass/Vol] 83 mg/dL 40 - PINF mg/dL [facility] Comment on above: HDL Guidelines: <40 Undesirable 40-59 Borderline >59 Desirable Cholesterol in LDL [Mass/Vol] 98 mg/dL 0 - 130 mg/dL [facility] Comment on above: LDL Guidelines: <100 Desirable 100-129 Near to/above Desirable 130-159 Borderline >159 Undesirable Direct (measured) LDL and calculated LDL are not interchangeable tests. Cholesterol.total/Ch olesterol in HDL [Mass ratio] 2.3 {ratio} NINF - 5 [facility] Triglyceride [Mass/Vol] 65 mg/dL NINF - 150 mg/dL [facility] Comment on above: Triglyceride Guidelines: <150 Desirable 150-199 Borderline 200-499 High >499 Very high Based on AHA Guidelines for fasting triglyceride, June 2012. Lipid Profileon 03-21-2023 Cholesterol [Mass/Vol] 194 mg/dL Normal <200 [facility] Comment on above: Result Comment: Cholesterol Guidelines: <200 Desirable 200-240 Borderline >240 Undesirable Performed By: #### C P, FT4, LIPR, TSH, CBC ####[facility] [id number] [place] [address] Lab Director: Rodrigue Kurtz DO#### VD25, UA ####[address] [address] lab Director: Jose Fraser MD Cholesterol in HDL [Mass/Vol] 83 mg/dL Normal >40 [facility] Comment on above: Result Comment: HDL Guidelines: <40 Undesirable 40-59 Borderline >59 Desirable Performed By: #### C P, FT4, LIPR, TSH, CBC ####[facility] [id number] [place] [address] Lab Director: Rodrigue Kurtz DO#### VD25, UA ####[address] [place] [address] Lab Director: Jose Fraser MD Cholesterol in LDL [Mass/Vol] 98 mg/dL Normal 0-130 [facility] Comment on above: Result Comment: LDL Guidelines: <100 Desirable 100-129 Near to/above Desirable 130-159 Borderline >159 Undesirable Direct (measured) LDL and calculated LDL are not interchangeable tests. Performed By: #### C P, FT4, LIPR, TSH, CBC ####[facility] [id number] [place], [place] [phone])[phone] Director: Rodrigue Kurtz DO#### VD25, UA ####[facility] [place] [address] Lab Director: Jose Fraser MD Cholesterol.total/Ch olesterol in HDL [Mass ratio] 2.3 {ratio} Normal <5 [facility] Comment on above: Performed By: #### C P, FT4, LIPR, TSH, CBC ####[facility] [id number] [place] [address] Lab Director: Rodrigue Kurtz DO#### VD25, UA ####[address] [place] [address] Lab Director: Jose Fraser MD Triglyceride [Mass/Vol] 65 mg/dL Normal <150 [facility] Comment on above: Result Comment: Triglyceride Guidelines: <150 Desirable 150-199 Borderline 200-499 High >499 Very high Based on AHA Guidelines for fasting triglyceride, June 2012. Performed By: #### C P, FT4, LIPR, TSH, CBC ####[facility] [id number] [place], [place] [phone])[phone] Director: Rodrigue Kurtz DO#### VD25, UA ####[facility] [place] [address] Lab Director: Jose Fraser MD No Panel Informationon 03-21 [facility] T4, Freeon 03-21-2023 Free T4 [Mass/Vol] 0.9 ng/dL 0.9 - 1.7 ng/dL [facility] TSHon 03-21-2023 TSH Qn 4.42 m[IU]/L [facility] Thyroid Stim. Horm.on 2022 Thyroid Stim. Horm. 4.42 uIU/mL Normal 0.30-5.00 [facility] Comment on above: Performed By: #### C P, FT4, LIPR, TSH, CBC ####[facility] [id number] [place] [address] Lab Director: Rodrigue Kurtz DO#### VD25, UA ####[facility] [address] [place], [place] [id number] lab Director: Jose Fraser MD Thyroxine, Freeon 03-21-2023 Thyroxine, Free 0.9 ng/dL Normal 0.9-1.7 [facility] Comment on above: Performed By: #### C P, FT4, LIPR, TSH, CBC ####[facility] [id number] [place] [address] lab Director: Rodrigue Kurtz DO#### VD25, UA ####[facility] [address] [place] [address] lab Director: Jose Fraser MD Urinalysison 03-21-2023 Bilirubin Ql (U) Negative NEGATIVE [facility] Clarity (U) Clear Clear [facility] Color (U) Yellow Yellow [facility] Glucose Test strip (U) [Mass/Vol] Negative NEGATIVE [facility] Hemoglobin Auto test strip Ql (U) Negative NEGATIVE [facility] Ketones (U) [Mass/Vol] Negative NEGATIVE [facility] Leukocyte esterase Test strip Ql (U) Negative NEGATIVE [facility] Nitrite Ql (U) Negative NEGATIVE [facility] pH (U) 6.0 [pH] 5.0 - 8.0 [facility] Protein (U) [Mass/Vol] Negative NEGATIVE [facility] Specific gravity (U) [Rel density] 1.021 1.000 - 1.030 [facility] Urinalysis Comments Microscopic exam not performed based on chemical results unless requested in original order. [facility] Urobilinogen Qn (U) Normal Normal [facility] Urinalysis, Routineon 2022 Bilirubin, SemiQt,Ur Negative Normal NEG [facility] Comment on above: Performed By: #### C P, FT4, LIPR, TSH, CBC ####[facility] [id number] [place] [address] Lab Director: Rodrigue Kurtz DO#### VD25, UA ####[address] [address] Lab Director: Jose Fraser MD Blood, Urine Negative Normal NEG [facility] Comment on above: Performed By: #### C P, FT4, LIPR, TSH, CBC ####[facility] [id number] [place], [place] [address])[phone] Director: Rodrigue Kurtz DO#### VD25, UA ####[address] [address] Lab Director: Jose Fraser MD Clarity (U) Clear Normal CLEAR [facility] Comment on above: Performed By: #### C P, FT4, LIPR, TSH, CBC ####[facility] [address] [place] [address] Lab Director: Rodrigue Kurtz DO#### VD25, UA ####[address] [address] Lab Director: Jose Fraser MD Color (U) Yellow Normal YEL [facility] Comment on above: Performed By: #### C P, FT4, LIPR, TSH, CBC ####[facility] [address] [place] [address] Lab Director: Rodrigue Kurtz DO#### VD25, UA ####[address] [address] Lab Director: Jose Fraser MD Comment Microscopic exam not performed based on chemical results unless requested in Normal [facility] Comment on above: Result Comment: orig inal order. Performed By: #### C P, FT4, LIPR, TSH, CBC ####[facility] [id number] [place] [address] Lab Director: Rodrigue Kurtz DO#### VD25, UA ####[address] [address] Lab Director: Jose Fraser MD Glucose Ql (U) Negative Normal NEG [facility] Comment on above: Performed By: #### C P, FT4, LIPR, TSH, CBC ####[facility] [address] [place] [address] Lab Director: Rodrigue Kurtz DO#### VD25, UA ####[address] [address] Lab Director: Jose Fraser MD Ketones Ql (U) Negative Normal NEG [facility] Comment on above: Performed By: #### C P, FT4, LIPR, TSH, CBC ####[facility] [id number] [place] [address] Lab Director: Rodrigue Kurtz DO#### VD25, UA ####[address] [address] Lab Director: Jose Fraser MD Leukocyte esterase Test strip Ql (U) Negative Normal NEG [facility] Comment on above: Performed By: #### C P, FT4, LIPR, TSH, CBC ####[facility] [id number] [place] [address] Lab Director: Rodrigue Kurtz DO#### VD25, UA ####[address] [address] Lab Director: Jose Fraser MD Nitrite,Ur Negative Normal NEG [facility] Comment on above: Performed By: #### C P, FT4, LIPR, TSH, CBC ####[facility] [id number] [place], [place] [id number])[phone] Director: Rodrigue Kurtz DO#### VD25, UA ####[address] [address] Lab Director: Jose Fraser MD PH,Ur 6.0 Normal 5.0-8.0 [facility] Comment on above: Performed By: #### C P, FT4, LIPR, TSH, CBC ####[facility] [address] [place] [address] Lab Director: Rodrigue Kurtz DO#### VD25, UA ####[address] [address] Lab Director: Jose Fraser MD Protein Ql (U) Negative Normal NEG [facility] Comment on above: Performed By: #### C P, FT4, LIPR, TSH, CBC ####[facility] [id number] [place], [place] [phone] Director: Rodrigue Kurtz DO#### VD25, UA ####[address] [address] Lab Director: Jose Fraser MD Spec. [place],Ur 1.021 Normal 1.000-1.[address] [facility] Comment on above: Performed By: #### C P, FT4, LIPR, TSH, CBC ####[facility] [id number] [place] [address] Lab Director: Rodrigue Kurtz DO#### VD25, UA ####[facility] [address] [place] [address] Lab Director: Jose Fraser MD Urobilinogen,Ur Normal Normal NORM [facility] Comment on above: Performed By: #### C P, FT4, LIPR, TSH, CBC ####[facility] [address] [place] [address] Lab Director: Rodrigue Kurtz DO#### VD25, UA ####[facility]q[address] [place] [address] lab Director: Jose Fraser MD Vitamin D 25 Hydroxyon 03-21 25-hydroxyvitamin D3 [Mass/Vol] 50.3 ng/mL 29.9 - PINF ng/mL [facility] Comment on above: Reference Range: Vitamin D status Range Deficiency <20 ng/mL Mild Deficiency 20-30 ng/mL Sufficiency 30-100 ng/mL Toxicity >100 ng/mL [facility] Vitamin D 25 OHon 03-21-2023 Vitamin D 25 [place] 50.3 ng/mL Normal >29.9 [facility] Comment on above: Result Comment: Reference Range: Vitamin D status Range Deficiency <20 ng/mL Mild Deficiency 20-30 ng/mL Sufficiency 30-100 ng/mL Toxicity >100 ng/mL Performed By: #### C P, FT4, LIPR, TSH, CBC ####[facility] [address] [place] [address] Lab Director: Rodrigue Kurtz DO#### VD25, UA ####[facility] [place] [address] lab Director: Jose Fraser MD US UNLISTED PROCEDURE DIAGon 10-28-2022 Radiology exam is complete. No Radiologist dictation. Please follow up with ordering provider. [facility] RIS CONSOLIDATED MRI ANKLE LEFT WO CONTRASTon 05-14-2022 1. 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 Moderate subtalar and tibiotalar joint effusions are present with synovitis noted. 2. Evidence for remote sprains of the lateral collateral ligament complex and deltoid ligament complex. 3. Tenosynovitis of the intact medial and lateral tendons. 4. No acute fracture identified. [facility] RIS CONSOLIDATED EXAMINATION: MRI OF THE LEFT ANKLE WITHOUT CONTRAST, 05/14/2022 2:24 pm TECHNIQUE: Multiplanar multisequence MRI of the left ankle was performed without the administration of intravenous contrast. COMPARISON: Left foot radiograph May 13, 2022 HISTORY: ORDERING SYSTEM PROVIDED HISTORY: Left foot pain FINDINGS: SYNDESMOTIC LIGAMENTS: Intact anterior inferior tibiofibular ligament and posterior inferior tibiofibular ligament. No significant periligamentous edema or interval widening. LATERAL COLLATERAL LIGAMENT COMPLEX: Attenuated anterior talofibular ligament intrasubstance intermediate signal consistent with sequela of remote sprain. The calcaneofibular ligament is intact with thickened with intrasubstance signal present consistent with sequela sprain. The posterior talofibular ligament remains intact. DELTOID LIGAMENT COMPLEX: Intrasubstance signal within the intact deltoid ligament complex compatible sequela of remote sprain. SINUS TARSI AND SPRING LIGAMENT: Complete loss of the normal fat signal at the sinus tarsi. The spring ligament is intact but attenuated with intrasubstance signal present. MEDIAL TENDONS: Intact posterior tibial tendon, flexor digitorum and flexor hallucis longus tendons. Fluid tracks along the posterior tibialis, flexor digitorum longus, and flexor hallucis longus tendon sheath consistent with tenosynovitis.Mild tenosynovitis of the peroneus longus and brevis tendons. LATERAL TENDONS: Intact peroneus brevis and longus tendons. ANTERIOR TENDONS: The tibialis anterior, extensor hallucis longus and extensor digitorum longus tendons are grossly intact. ACHILLES TENDON: The Achilles tendon is normal in position, morphology and signal. No associated bursitis. PLANTAR FASCIA: Mild thickening of the medial cord of the plantar fascia with no tear identified. No surrounding soft tissue edema. Findings suggest sequela of chronic changes of plantar fasciitis. TARSAL TUNNEL: There are no obstructing lesions within the tarsal tunnel. BONE MARROW: Marrow edema of the lateral malleolus, talus, calcaneus, and navicular which appears reactive/mechanical with prominent subchondral cystic changes present at the talonavicular joint and to a lesser extent at the subtalar joint. Subchondral cystic changes also identified along the lateral malleolus. No acute fracture identified. Metallic susceptibility artifact related to fixation hardware at the 1st tarsometatarsal articulation. No suspicious marrow occupying lesions. JOINT SPACES: Severe pes planovalgus deformity. Moderate tibiotalar and subtalar joint effusions. Synovitis also present. 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 [id number] degenerative change throughout the remainder of the midfoot. Arthrodesis of the 1st tarsometatarsal articulation. The underlying joint is obscured by metallic susceptibility artifact and is therefore not well evaluated. [facility] RIS CONSOLIDATED Renan Wilburn MD - 05/14/2022 EXAMINATION: MRI OF THE LEFT ANKLE WITHOUT CONTRAST, 05/14/2022 2:24 pm TECHNIQUE: Multiplanar multisequence MRI of the left ankle was performed without the administration of intravenous contrast. COMPARISON: Left foot radiograph May 13, 2022 HISTORY: ORDERING SYSTEM PROVIDED HISTORY: Left foot pain FINDINGS: SYNDESMOTIC LIGAMENTS: Intact anterior inferior tibiofibular ligament and posterior inferior tibiofibular ligament. No significant periligamentous edema or interval widening. LATERAL COLLATERAL LIGAMENT COMPLEX: Attenuated anterior talofibular ligament intrasubstance intermediate signal consistent with sequela of remote sprain. The calcaneofibular ligament is intact with thickened with intrasubstance signal present consistent with sequela sprain. The posterior talofibular ligament remains intact. DELTOID LIGAMENT COMPLEX: Intrasubstance signal within the intact deltoid ligament complex compatible sequela of remote sprain. SINUS TARSI AND SPRING LIGAMENT: Complete loss of the normal fat signal at the sinus tarsi. The spring ligament is intact but attenuated with intrasubstance signal present. MEDIAL TENDONS: Intact posterior tibial tendon, flexor digitorum and flexor hallucis longus tendons. Fluid tracks along the posterior tibialis, flexor digitorum longus, and flexor hallucis longus tendon sheath consistent with tenosynovitis.Mild tenosynovitis of the peroneus longus and brevis tendons. LATERAL TENDONS: Intact peroneus brevis and longus tendons. ANTERIOR TENDONS: The tibialis anterior, extensor hallucis longus and extensor digitorum longus tendons are grossly intact. ACHILLES TENDON: The Achilles tendon is normal in position, morphology and signal. No associated bursitis. PLANTAR FASCIA: Mild thickening of the medial cord of the plantar fascia with no tear identified. No surrounding soft tissue edema. Findings suggest sequela of chronic changes of plantar fasciitis. TARSAL TUNNEL: There are no obstructing lesions within the tarsal tunnel. BONE MARROW: Marrow edema of the lateral malleolus, talus, calcaneus, and navicular which appears reactive/mechanical with prominent subchondral cystic changes present at the talonavicular joint and to a lesser extent at the subtalar joint. Subchondral cystic changes also identified along the lateral malleolus. No acute fracture identified. Metallic susceptibility artifact related to fixation hardware at the 1st tarsometatarsal articulation. No suspicious marrow occupying lesions. JOINT SPACES: Severe pes planovalgus deformity. Moderate tibiotalar and subtalar joint effusions. Synovitis also present. 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 [id number] degenerative change throughout the remainder of the midfoot. Arthrodesis of the 1st tarsometatarsal articulation. The underlying joint is obscured by metallic susceptibility artifact and is therefore not well evaluated. IMPRESSION: 1. 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 Moderate subtalar and tibiotalar joint effusions are present with synovitis noted. 2. Evidence for remote sprains of the lateral collateral ligament complex and deltoid ligament complex. 3. Tenosynovitis of the intact medial and lateral tendons. 4. No acute fracture identified. [employer] Work Phone: Radiology Study observation (narrative) [employer] Phone: MRI ANKLE LEFT WO CONTRASTOr dered By: Renan Wilburn on 05-14-2022 [employer] Phone: CBC with Auto Differentialon 03-05-2022 Absolute Eos # 0.10 [facility] [employer] [facility] ManagementP[facility] [employer] Absolute Lymph # 1.90 [facility] Absolute Daniels # 0.40 [facility] Basophils (Bld) [#/Vol] 0.10 10*3/uL [facility] Basophils/100 WBC (Bld) 1 % 0 - 2 % [facility] Eosinophils/100 WBC (Bld) 1 % 0 - 4 % [facility] Hematocrit (Bld) [Volume fraction] 38.2 % 36 - 46 % [facility] Hemoglobin (Bld) [Mass/Vol] 12.6 g/dL 12.0 - 16.0 g/dL [facility] Interpretation and review of laboratory results Abnormal [facility] Lymphocytes/100 WBC (Bld) 36 % 24 - 44 % [facility] MCH (RBC) [Entitic mass] 31.1 pg 26 - 34 pg [facility] MCHC (RBC) [Mass/Vol] 32.9 g/dL 31 - 37 g/dL [facility] MCV (RBC) [Entitic vol] 94.6 fL 80 - 100 fL [facility] Monocytes/100 WBC (Bld) 9 % High 1 - 7 % [facility] Platelet distribution width (Bld) [Ratio] 12.9 % 11.5 - 14.9 % [facility] Platelet mean volume (Bld) [Entitic vol] 8.5 fL 6.0 - 12.0 fL [facility] Platelets (Bld) [#/Vol] 291 10*3/uL [facility] RBC (Bld) [#/Vol] 4.04 10*6/uL 4.0 - 5.2 m/uL [facility] Segmented neutrophils/100 WBC (Bld) 53 % 36 - 66 % [facility] Segs Absolute 2.80 [facility] WBC (Bld) [#/Vol] 5.2 10*3/uL [facility] Ferritinon 03-05-2022 Ferritin [Mass/Vol] 401 ng/mL High 13 - 150 ng/mL [facility] Interpretation and review of laboratory results Abnormal [facility] Folateon 03-05-2022 Folate 12.4 ng/mL >4.8 [facility] Iron and TIBCon 03-05-2022 Iron [Mass/Vol] 85 ug/dL 37 - 145 ug/dL [facility] Iron Saturation 32 % 20 - 55 % [facility] RS [facility] TIBC 268 ug/dL 250 - 450 ug/dL [facility] UIBC 183 ug/dL 112 - 347 ug/dL [facility] No Panel Informationon 03-05 [facility] Reticulocyteson 03-05-2022 Absolute Retic # 0.041 [facility] URS [facility] Retic % 1.0 % 0.5 - 2.0 % [facility] T4, Freeon 03-05-2022 Thyroxine, Free 1.06 ng/dL 0.93 - 1.70 ng/dL [facility] TSHon 03-05-2022 TSH Qn 2.20 m[IU]/L [facility] Vitamin B12on 03-05-2022 Cobalamin (Vitamin B12) [Mass/Vol] 540 pg/mL 232 - 1245 pg/mL [facility] XAVIER ISHAAN DIGITAL SCREEN SELF REFERRAL W OR WO CAD BILATERALOrdered By: Pardeep Cordon on 05-07-2021 There are no mammographic findings to suggest malignancy. Annual screening mammogram is requested BIRADS: BIRADS - CATEGORY 1 Negative. Normal interval follow-up is recommended in 12 months. OVERALL ASSESSMENT - NEGATIVE A letter of notification will be sent to the patient regarding the results. [employer] recommends annual mammograms for women 40 years and older. [employer] Phone: EXAMINATION: SCREENING DIGITAL BILATERAL MAMMOGRAM WITH TOMOSYNTHESIS, 05/07/2021 TECHNIQUE: Screening mammography of the bilateral breasts was performed with tomosynthesis. 2D standard and 3D tomosynthesis combination imaging performed through both breasts in the MLO and CC projection. Computer aided detection was utilized in the interpretation of this exam. COMPARISON: 2019, 2018, 2017, 2016 mammograms HISTORY: Screening. FINDINGS: There are scattered bilateral fibroglandular densities. There are no suspicious calcifications, masses or areas of architectural distortion. [employer] Phone: [facility] Work Phone: Glucose, randomon 10-06-2020 Glucose [Mass/Vol] 92 mg/dL 70 - 99 mg/dL [facility] [place] Hemoglobin A1Con 10-06-2020 Glucose [Mass/Vol] 94 mg/dL [place], [place] Comment on above: The ADA and AACC rec ommend providing the estimated average glucose result to permit better patient understanding of their HBA1c result. HbA1c (Bld) [Mass fraction] 4.9 % 4 - 6 % [place], [place] Otheron 03-13-2020 1. Improve mammographic appearance of the left breast without suspicious abnormality identified. 2. Stable sonographic finding in the 11 o'clock left breast, which maintains benign features. Return to yearly screening schedule is recommended. BI-RADS 2 BIRADS: BIRADS - CATEGORY 2 Benign, no evidence of malignancy. Normal interval follow-up is recommended in 12 months. OVERALL ASSESSMENT - BENIGN A letter of notification will be sent to the patient regarding the results. [employer] recommends annual mammograms for women 40 years and older. [place], [place] EXAMINATION: DIAGNOSTIC DIGITAL LEFT BREAST MAMMOGRAM; TARGETED ULTRASOUND OF THE LEFT BREAST, 03/13/2020 2:13 pm TECHNIQUE: Diagnostic mammography of the left breast was performed. Computer aided detection was utilized in the interpretation of this exam.; Target ultrasound of the left breast was performed. Views: CC and MLO views with tomosynthesis. COMPARISON: 08/30/2019, 08/23/2019 and 08/21/2018. HISTORY: ORDERING SYSTEM PROVIDED HISTORY: Breast asymmetry TECHNOLOGIST PROVIDED HISTORY: left breast asymmetry FINDINGS: DIAGNOSTIC MAMMOGRAM: Scattered fibroglandular tissue. Focal asymmetry in the central superior left breast appears improved. No suspicious mass, distortion or microcalcifications. TARGETED ULTRASOUND: Repeat ultrasound was performed in the area of previously seen abnormality, located in the 11:00 position, 5 cm from the nipple. Redemonstration of benign-appearing ovoid area of parenchyma measuring 0.4 x 0.2 x 0.5 cm, unchanged. This is favored to represent a small mass such as a fibroadenoma. No new or suspicious findings identified. [place], [place] Chris, M[facility]pn Incoming Radiant Results From mEgo/Re Pet - 03/13/2020 3:21 PM EDT EXAMINATION: DIAGNOSTIC DIGITAL LEFT BREAST MAMMOGRAM; TARGETED ULTRASOUND OF THE LEFT BREAST, 03/13/2020 2:13 pm TECHNIQUE: Diagnostic mammography of the left breast was performed. Computer aided detection was utilized in the interpretation of this exam.; Target ultrasound of the left breast was performed. Views: CC and MLO views with tomosynthesis. COMPARISON: 08/30/2019, 08/23/2019 and 08/21/2018. HISTORY: ORDERING SYSTEM PROVIDED HISTORY: Breast asymmetry TECHNOLOGIST PROVIDED HISTORY: left breast asymmetry FINDINGS: DIAGNOSTIC MAMMOGRAM: Scattered fibroglandular tissue. Focal asymmetry in the central superior left breast appears improved. No suspicious mass, distortion or microcalcifications. TARGETED ULTRASOUND: Repeat ultrasound was performed in the area of previously seen abnormality, located in the 11:00 position, 5 cm from the nipple. Redemonstration of benign-appearing ovoid area of parenchyma measuring 0.4 x 0.2 x 0.5 cm, unchanged. This is favored to represent a small mass such as a fibroadenoma. No new or suspicious findings identified. IMPRESSION: 1. Improve mammographic appearance of the left breast without suspicious abnormality identified. 2. Stable sonographic finding in the 11 o'clock left breast, which maintains benign features. Return to yearly screening schedule is recommended. BI-RADS 2 BIRADS: BIRADS - CATEGORY 2 Benign, no evidence of malignancy. Normal interval follow-up is recommended in 12 months. OVERALL ASSESSMENT - BENIGN A letter of notification will be sent to the patient regarding the results. [employer] recommends annual mammograms for women 40 years and older. [facility] [place] Otheron 08-30-2019 Probable benign smal l asymmetry in the central left breast on mammogram. Probable benign 5 mm mass in the left breast at 11 o'clock, 5 cm from the nipple on ultrasound. Recommend follow-up with left breast diagnostic mammogram and left breast ultrasound in 6 months. BIRADS: BIRADS - CATEGORY 3 Findings are probably benign. A short interval follow-up is recommended in 6 months. OVERALL ASSESSMENT - PROBABLY BENIGN. A letter of notification will be sent to the patient regarding the results. BI-RADS 3 [facility] [place] EXAMINATION: DIAGNOSTIC DIGITAL LEFT BREAST MAMMOGRAM; TARGETED ULTRASOUND OF THE LEFT BREAST, 08/30/2019 1:29 pm TECHNIQUE: Diagnostic mammography of the left breast was performed. Computer aided detection was utilized in the interpretation of this exam.; Target ultrasound of the left breast was performed. Views: Full field digital mammographic view of view of the left breast in mL projection. Spot compression views of the left breast in CC and MLO projections. 3D tomosynthesis images of the left breast in mL projection and spot compression CC and MLO views. COMPARISON: Mammogram dated 08/23/2019, 08/21/2018, 08/19/2017. HISTORY: ORDERING SYSTEM PROVIDED HISTORY: Breast asymmetry TECHNOLOGIST PROVIDED HISTORY: left breast asymmetry FINDINGS: There are scattered areas of fibroglandular density. Small asymmetry in the central left breast persists on spot compression view in CC projection. It is central in the left breast when correlated with the mL projection. Left breast ultrasound shows 5 x 4 x 2 mm probable benign hypoechoic mass with circumscribed margins at 11 o'clock, 5 cm from the nipple. It is difficult to determine if mass present on ultrasound correlates with asymmetry present on mammogram. Recommend follow-up with diagnostic left mammogram and left breast ultrasound in 6 months to confirm mammographic stability. Additional asymmetry seen in the superior left breast at posterior depth on screening mammogram does not persist on spot compression view in MLO projection on current exam and likely represented the result of tissue summation artifact. [facility]- [place], [place] Chris, Mhpn Incoming Radiant Results From mEgo/Re Pet - 08/30/2019 4:24 PM EST EXAMINATION: DIAGNOSTIC DIGITAL LEFT BREAST MAMMOGRAM; TARGETED ULTRASOUND OF THE LEFT BREAST, 08/30/2019 1:29 pm TECHNIQUE: Diagnostic mammography of the left breast was performed. Computer aided detection was utilized in the interpretation of this exam.; Target ultrasound of the left breast was performed. Views: Full field digital mammographic view of view of the left breast in mL projection. Spot compression views of the left breast in CC and MLO projections. 3D tomosynthesis images of the left breast in mL projection and spot compression CC and MLO views. COMPARISON: Mammogram dated 08/23/2019, 08/21/2018, 08/19/2017. HISTORY: ORDERING SYSTEM PROVIDED HISTORY: Breast asymmetry TECHNOLOGIST PROVIDED HISTORY: left breast asymmetry FINDINGS: There are scattered areas of fibroglandular density. Small asymmetry in the central left breast persists on spot compression view in CC projection. It is central in the left breast when correlated with the mL projection. Left breast ultrasound shows 5 x 4 x 2 mm probable benign hypoechoic mass with circumscribed margins at 11 o'clock, 5 cm from the nipple. It is difficult to determine if mass present on ultrasound correlates with asymmetry present on mammogram. Recommend follow-up with diagnostic left mammogram and left breast ultrasound in 6 months to confirm mammographic stability. Additional asymmetry seen in the superior left breast at posterior depth on screening mammogram does not persist on spot compression view in MLO projection on current exam and likely represented the result of tissue summation artifact. IMPRESSION: Probable benign small asymmetry in the central left breast on mammogram. Probable benign 5 mm mass in the left breast at 11 o'clock, 5 cm from the nipple on ultrasound. Recommend follow-up with left breast diagnostic mammogram and left breast ultrasound in 6 months. BIRADS: BIRADS - CATEGORY 3 Findings are probably benign. A short interval follow-up is recommended in 6 months. OVERALL ASSESSMENT - PROBABLY BENIGN. A letter of notification will be sent to the patient regarding the results. BI-RADS 3 [facility] [email or web address] DEXA BONE DENSITY AXIAL SKEL ETONon 08-23-2019 No evidence of osteopenia or osteoporosis by WHO criteria. [place], [place] EXAMINATION: BONE DENSITOMETRY 08/23/2019 7:06 am TECHNIQUE: A bone density dual x-ray absorptiometry (DEXA) scan was performed of the lumbar spine and left hip on a [employer] system. COMPARISON: None. HISTORY: ORDERING SYSTEM PROVIDED HISTORY: Post-menopausal TECHNOLOGIST PROVIDED HISTORY: psot menopausal FINDINGS: LUMBAR SPINE: Hypertrophic changes at L3 and L4 on the right likely falsely exaggerate bone density. The bone mineral density in the lumbar spine including the L1-L2 levels is measured at 1.2-3 g/cm2, which corresponds to a T-score of 0.4 and a Z-score of 0.5. This is within the normal range by WHO criteria. LEFT HIP: The bone mineral density in the total hip is measured at 0.937 g/cm2 corresponding to a T-score of -0.6 and a Z-score of -0.4. This is within the normal range by WHO criteria. The bone mineral density of the femoral neck is measured at 0.893 g/cm2 corresponding to a T-score of -1.0 and a Z-score of -0.5. This is within the normal range by WHO criteria. WHO fracture risk assessment tool (FRAX) projects a 10-year fracture risk of a major osteoporotic fracture at 7.6 % and hip fracture at less than 1 %. The patient's 10-year fracture risk is increased if untreated. Fracture probability may be lower if the patient has received treatment. FRAX may underestimate fracture probability in patients who have impaired functional status from rheumatoid arthritis, history of frequent falls, history of multiple fractures, severe vertebral fractures, parental history of non-hip fragility fractures, glucocorticoid doses in excess of 7.5 mg/day or frequent use, high dose inhaled glucocorticoids, and if the T-score of the lumbar spine is > 1 SD lower than the femoral neck. Clinical judgment and/or patient preferences may indicate treatment for people with 10 year fracture probabilities above or below these levels. [place]- [place], [place] Chris, Shaheen Incoming Radiant Results From mEgo/Re Pet - 08/23/2019 7:54 AM EST EXAMINATION: BONE DENSITOMETRY 08/23/2019 7:06 am TECHNIQUE: A bone density dual x-ray absorptiometry (DEXA) scan was performed of the lumbar spine and left hip on a [employer] system. COMPARISON: None. HISTORY: ORDERING SYSTEM PROVIDED HISTORY: Post-menopausal TECHNOLOGIST PROVIDED HISTORY: psot menopausal FINDINGS: LUMBAR SPINE: Hypertrophic changes at L3 and L4 on the right likely falsely exaggerate bone density. The bone mineral density in the lumbar spine including the L1-L2 levels is measured at 1.2-3 g/cm2, which corresponds to a T-score of 0.4 and a Z-score of 0.5. This is within the normal range by WHO criteria. LEFT HIP: The bone mineral density in the total hip is measured at 0.937 g/cm2 corresponding to a T-score of -0.6 and a Z-score of -0.4. This is within the normal range by WHO criteria. The bone mineral density of the femoral neck is measured at 0.893 g/cm2 corresponding to a T-score of -1.0 and a Z-score of -0.5. This is within the normal range by WHO criteria. WHO fracture risk assessment tool (FRAX) projects a 10-year fracture risk of a major osteoporotic fracture at 7.6 % and hip fracture at less than 1 %. The patient's 10-year fracture risk is increased if untreated. Fracture probability may be lower if the patient has received treatment. FRAX may underestimate fracture probability in patients who have impaired functional status from rheumatoid arthritis, history of frequent falls, history of multiple fractures, severe vertebral fractures, parental history of non-hip fragility fractures, glucocorticoid doses in excess of 7.5 mg/day or frequent use, high dose inhaled glucocorticoids, and if the T-score of the lumbar spine is > 1 SD lower than the femoral neck. Clinical judgment and/or patient preferences may indicate treatment for people with 10 year fracture probabilities above or below these levels. IMPRESSION: No evidence of osteopenia or osteoporosis by WHO criteria. [facility] DIGITAL SCREEN W CAD WILLI ATERALon 08-23-2019 1. Left breast: 2 asymmetries seen in the left breast, unlikely to be correlates based on distance from the nipple. Additional evaluation with diagnostic mammogram and possible ultrasound is recommended. 2. Right breast: No mammographic findings of malignancy. This breast can continue to be followed with annual screening mammogram. BIRADS - CATEGORY 0 Additional imaging is recommended at this time. OVERALL ASSESSMENT - INCOMPLETE:NEED ADDITIONAL IMAGING EVALUATION. BI-RADS 0 [place], [place] EXAMINATION: BILATERAL DIGITAL SCREENING MAMMOGRAM, 08/23/2019 TECHNIQUE: CC and MLO views of the left and right breasts were obtained. Computer aided detection was utilized in the interpretation of this exam. 3D tomosynthesis images were obtained. COMPARISON: Mammogram dated 08/21/2018 and 08/19/2017 HISTORY: Screening. FINDINGS: There are scattered fibroglandular densities in both breasts. On MLO view, there is an asymmetry in the upper left breast, posterior 3rd. On CC view, there is an asymmetry in the lateral left breast, middle/posterior 3rd. These are unlikely to be correlates based on distance from the nipple. No suspicious calcification in the left breast. No suspicious mass, architectural distortion, or calcification in the right breast. [place], [place] Chris, Mhpn Incoming Radiant Results From mEgo/Re Pet - 08/23/2019 8:35 AM EST EXAMINATION: BILATERAL DIGITAL SCREENING MAMMOGRAM, 08/23/2019 TECHNIQUE: CC and MLO views of the left and right breasts were obtained. Computer aided detection was utilized in the interpretation of this exam. 3D tomosynthesis images were obtained. COMPARISON: Mammogram dated 08/21/2018 and 08/19/2017 HISTORY: Screening. FINDINGS: There are scattered fibroglandular densities in both breasts. On MLO view, there is an asymmetry in the upper left breast, posterior 3rd. On CC view, there is an asymmetry in the lateral left breast, middle/posterior 3rd. These are unlikely to be correlates based on distance from the nipple. No suspicious calcification in the left breast. No suspicious mass, architectural distortion, or calcification in the right breast. IMPRESSION: 1. Left breast: 2 asymmetries seen in the left breast, unlikely to be correlates based on distance from the nipple. Additional evaluation with diagnostic mammogram and possible ultrasound is recommended. 2. Right breast: No mammographic findings of malignancy. This breast can continue to be followed with annual screening mammogram. BIRADS - CATEGORY 0 Additional imaging is recommended at this time. OVERALL ASSESSMENT - INCOMPLETE:NEED ADDITIONAL IMAGING EVALUATION. BI-RADS 0 [facility] [place] PAP ACOG PANEL 2: 30 to 65on 08-12-2018 Age Gdln ACOG Testing 30-65 Normal [facility] Comment on above: Performed By: #### [id number] ####[facility] [id number] DIAGNOSIS: Comment Normal [facility] Comment on above: Result Comment: NEGA TIVE FOR INTRAEPITHELIAL LESION AND MALIGNANCY.Performed at: WB Performed By: #### [id number] ####[facility] [id number] [address] HPV Aptima Positive Abnormal Negative [facility] Comment on above: Result Comment: This test detects fourteen high-risk HPV types (16/18/31/33/35/39/45/51/52/56/58/59/66/68) without differentiation.Performed at: =G Performed By: #### [id number] ####[facility] [id number] HPV Genotype 16 Negative Normal Negative [facility] Comment on above: Result Comment: Perf ormed at: =G Performed By: #### [id number] ####[facility] [id number] HPV Genotype 18,45 Negative Normal Negative [facility] Comment on above: Result Comment: Perf ormed at: =G Performed By: #### [id number] ####[facility] [address] [place] [address] Methodology: Comment Normal [facility] Comment on above: Result Comment: This liquid based ThinPrep(R) pap test was screened with theuse of an image guided system.Performed at: WB Performed By: #### [id number] ####[facility] [address] [place] [address] Note: Comment Normal [facility] Comment on above: Result Comment: The Pap smear is a screening test designed to aid in the detection ofpremalignant and malignant conditions of the uterine cervix. It is not adiagnostic procedure and should not be used as the sole means of detectingcervical cancer. Both false-positive and false-negative reports do occur. .Performed at: WB Performed By: #### [id number] ####[facility] [address] [place] [address] [place] Performed by: Comment Normal [facility] Comment on above: Result Comment: Elliot Valdovinos, Forensic Social Worker (ASCP)Performed at: WB Performed By: #### [id number] ####[facility] [id number] [place] [address] [place] Specimen adequacy: Comment Normal [facility] Comment on above: Result Comment: Sati sfactory for evaluation. Endocervical component may not bedistinguished in cases of atrophy.Performed at: WB Performed By: #### [id number] ####[facility] [address] [place] [address] [place] . . Normal [facility] Comment on above: Result Comment: Perf ormed at: WB Performed By: #### [id number] ####[facility] [address] [place] [address] [place] Vital Signs Date Time Vital Sign Value Performing Clinician Norman otto 11-17-2023 10:50-0500 Body height 172.7 cm Fernanda Rio Rancho DO Work Phone: [facility] [employer] 11-17-2023 10:50-0500 Body mass index (BMI) [Ratio] 34.21 kg/m2 Fernanda María DO Work Phone: [facility] [employer] 11-17-2023 10:50-0500 Body weight 102.06 kg Fernanda María DO Work Phone: [facility] [employer] 05-19-2023 10:04-0400 Body height 172.7 cm Fernanda Rio [place]o DO Work Phone: [facility] [employer] 05-19-2023 10:04-0400 Body mass index (BMI) [Ratio] 34.21 kg/m2 Fernanda María DO Work Phone: [facility] [employer] 05-19-2023 10:04-0400 Body temperature 97.3 [degF] Fernanda María DO Work Phone: [facility] [employer] 05-19-2023 10:04-0400 Body weight 102.06 kg Fernanda María DO Work Phone: [facility] [employer] 05-19-2023 10:04-0400 Respiratory rate 20 /min Fernanda Rio [place]o DO Work Phone: [facility] [employer] 12-25-2022 11:22-0400 Body height 172.7 cm Fernanda Rio Rancho DO Work Phone: [facility] [employer] 12-25-2022 11:22-0400 Body mass index (BMI) [Ratio] 33.45 kg/m2 Fernanda María DO Work Phone: [facility] [employer] 12-25-2022 11:22-0400 Body temperature 97.3 [degF] Fernanda Rio Rancho DO Work Phone: [facility] [employer] 12-25-2022 11:22-0400 Body weight 99.79 kg Fernanda Rio Rancho DO Work Phone: [facility] [employer] 12-25-2022 11:22-0400 Diastolic blood pressure 94 mm[Hg] Fernanda María DO Work Phone: [facility] [employer] 12-25-2022 11:22-0400 Heart rate 71 /min Fernanda Rio [place]o DO Work Phone: [facility] [employer] 12-25-2022 11:22-0400 Respiratory rate 20 /min Fernanda María DO Work Phone: [facility] [employer] 12-25-2022 11:22-0400 SaO2% (BldA) [Mass fraction] 96 % Fernanda Rio Rancho DO Work Phone: [facility] [employer] 12-25-2022 11:22-0400 Systolic blood pressure 149 mm[Hg] Fernanda Rio Rancho DO Work Phone: [facility] [employer] 12-10-2022 07:20-0400 Body height 172.7 cm Fernanda María DO Work Phone: [facility] [employer] 12-10-2022 07:20-0400 Body mass index (BMI) [Ratio] 33.45 kg/m2 Fernanda María DO Work Phone: [facility] [employer] 12-10-2022 07:20-0400 Body temperature 98.2 [degF] Fernanda Rio Rancho DO Work Phone: [facility] [employer] 12-10-2022 07:20-0400 Body weight 99.79 kg Fernanda María DO Work Phone: [facility] [employer] 12-10-2022 07:20-0400 Diastolic blood pressure 76 mm[Hg] Fernanda María DO Work Phone: [facility] [employer] 12-10-2022 07:20-0400 Heart rate 62 /min Fernanda María DO Work Phone: [facility] [employer] 12-10-2022 07:20-0400 Respiratory rate 18 /min Fernanda María DO Work Phone: [facility] [employer] 12-10-2022 07:20-0400 SaO2% (BldA) [Mass fraction] 99 % Fernanda María DO Work Phone: [facility] [employer] 12-10-2022 07:20-0400 Systolic blood pressure 155 mm[Hg] Fernanda María DO Work Phone: [facility] [employer] 11-11-2022 11:13-0500 Body temperature 97.3 [degF] Fernanda María DO Work Phone: [facility] [employer] 11-11-2022 11:13-0500 Diastolic blood pressure 99 mm[Hg] Fernanda María DO Work Phone: [facility] [employer] 11-11-2022 11:13-0500 Heart rate 63 /min Fernanda Rio [place]o DO Work Phone: [facility] [employer] 11-11-2022 11:13-0500 Respiratory rate 20 /min Fernanda Rio Rancho DO Work Phone: [facility] [employer] 11-11-2022 11:13-0500 SaO2% (BldA) [Mass fraction] 97 % Fernanda María DO Work Phone: [facility] [employer] 11-11-2022 11:13-0500 Systolic blood pressure 170 mm[Hg] Fernanda María DO Work Phone: [facility] [employer] 10-28-2022 07:11-0500 Body height 172.7 cm Fernanda María DO Work Phone: [facility] [employer] 10-28-2022 07:11-0500 Body mass index (BMI) [Ratio] 33.45 kg/m2 Fernanda María DO Work Phone: [facility] [employer] 10-28-2022 07:11-0500 Body temperature 97.5 [degF] Fernanda Rio [place]o DO [facility] 10-28-2022 07:11-0500 Body weight 99.79 kg Fernanda Rio Rancho DO Work Phone: [facility] [employer] 10-28-2022 07:11-0500 Diastolic blood pressure 96 mm[Hg] Fernanda María DO [facility] 10-28-2022 07:11-0500 Heart rate 70 /min Fernanda María DO [facility] 10-28-2022 07:11-0500 Respiratory rate 20 /min Fernanda María DO [facility] 10-28-2022 07:11-0500 SaO2% (BldA) [Mass fraction] 98 % Fernanda Rio Rancho DO Work Phone: [facility] [employer] 10-28-2022 07:11-0500 Systolic blood pressure 169 mm[Hg] Fernanda María DO [facility] 08-12-2022 08:44-0500 Body height 172.7 cm Fernanda Rio Rancho DO Work Phone: [facility] [employer] 08-12-2022 08:44-0500 Body mass index (BMI) [Ratio] 32.69 kg/m2 Fernanda María DO Work Phone: [facility] [employer] 08-12-2022 08:44-0500 Body temperature 97.3 [degF] Fernanda María DO Work Phone: [facility] [employer] 08-12-2022 08:44-0500 Body weight 97.52 kg Fernanda Rio Rancho DO Work Phone: [facility] [employer] 08-12-2022 08:44-0500 Diastolic blood pressure 113 mm[Hg] Fernanda Rio Rancho DO Work Phone: [employer] 08-12-2022 08:44-0500 Heart rate 87 /min Fernanda Rio Rancho DO Work Phone: [facility] [employer] 08-12-2022 08:44-0500 SaO2% (BldA) [Mass fraction] 98 % Fernanda María DO Work Phone: [facility] [employer] 08-12-2022 08:44-0500 Systolic blood pressure 184 mm[Hg] Fernanda Rio Rancho DO Work Phone: [employer] 07-24-2022 10:00-0400 Body mass index (BMI) [Ratio] 32.69 kg/m2 Fernanda Rio Rancho DO Work Phone: [employer] 07-24-2022 10:00-0400 Body temperature 97.3 [degF] Fernanda María DO Work Phone: [employer] 07-24-2022 10:00-0400 Body weight 97.52 kg Fernanda Rio Rancho DO Work Phone: [employer] 07-24-2022 10:00-0400 Diastolic blood pressure 93 mm[Hg] Fernanda Rio Rancho DO Work Phone: [employer] 07-24-2022 10:00-0400 Heart rate 81 /min Fernanda Rio Rancho DO Work Phone: [employer] 07-24-2022 10:00-0400 SaO2% (BldA) [Mass fraction] 99 % Fernanda Rio Rancho DO Work Phone: [employer] 07-24-2022 10:00-0400 Systolic blood pressure 165 mm[Hg] Fernanda María DO Work Phone: [employer] Encounters Encounter Date Encounter Type Care Provider Facility Start: 05-20-2024 End: 05-20-2024 ambulatory PARDEEP C NADAUD Not Available Start: 12-04-2023 End: 12-04-2023 ambulatory PARDEEP CORDON Not Available Start: 11-17-2023 End: 11-18-2023 ambulatory PARDEEP Saha [facility] Start: 11-17-2023 End: 11-17-2023 Subsequent hospital visit by physician Fernanda Daniel DO Work Phone: [facility] Management Comment on above: 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); Lesion of sciatic nerve, left; Left foot pain; Right foot pain; Charcot's joint of right foot; Nerve pain Start: 09-16-2023 End: 09-16-2023 ambulatory PARDEEP CORDON Not Available Start: 08-25-2023 End: 08-25-2023 Emergency department patient visit PARDEEP Saha [facility] Start: 08-20-2023 End: 08-23-2023 ambulatory [facility] Start: 08-18-2023 End: 08-19-2023 ambulatory PARDEEP Saha [facility] Start: 06-17-2023 End: 06-18-2023 ambulatory [facility] Start: 06-17-2023 End: 06-17-2023 Subsequent hospital visit by physician Fernanda Brown Phone: [facility] Comment on above: Arrived Start: 05-27-2023 End: 05-28-2023 ambulatory [facility] Start: 05-19-2023 End: 05-20-2023 ambulatory [facility] Start: 05-19-2023 End: 05-19-2023 Subsequent hospital visit by physician Fernanda Daniel DO Work Phone: [facility] Comment on above: 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); Lesion of sciatic nerve, left; Left foot pain; Right foot pain; Charcot's joint of right foot; Nerve pain Start: 05-13-2023 End: 05-14-2023 [facility] Start: 03-21-2023 End: 03-22-2023 ambulatory [facility] Start: 03-21-2023 End: 03-22-2023 Encounter for general adult medical examination without abnormal findings PARDEEP Saha [facility] Start: 03-21-2023 End: 03-21-2023 Subsequent hospital visit by physician Pardeep Brown Phone: [facility] Start: 01-28-2023 End: 01-28-2023 Subsequent hospital visit by physician Fernanda Daniel DO Work Phone: [facility] Comment on above: Canceled (Patient) Start: 12-25-2022 End: 12-26-2022 ambulatory [facility] Start: 12-25-2022 End: 12-25-2022 Subsequent hospital visit by physician Fernanda Brown Phone: [facility] Comment on above: Sciatic nerve pain, left (Primary Dx); Right foot pain; Nerve pain; Left foot pain; Sciatic nerve pain, right Start: 12-10-2022 End: 12-11-2022 [facility] Start: 12-10-2022 End: 12-10-2022 Subsequent hospital visit by physician Zoey Dobbs [facility] Comment on above: Pain management Arrived Start: 11-11-2022 End: 11-11-2022 Subsequent hospital visit by physician Fernanda Brown Phone: [facility] Comment on above: Sciatic nerve pain, left (Primary Dx); Charcot's joint of right foot; Nerve pain; Chronic use of opiate for therapeutic purpose Start: 10-28-2022 End: 10-28-2022 ambulatory [facility] Start: 10-28-2022 End: 10-30-2022 Subsequent hospital visit by physician Fenranda Daniel DO Work Phone: [facility] Comment on above: Arrived Pain management Start: 08-12-2022 End: 08-12-2022 Subsequent hospital visit by physician Fernanda Daniel DO Work Phone: [facility] Comment on above: Right foot pain (Mary eloisa Dx); Charcot's joint of right foot; Nerve pain; Chronic use of opiate for therapeutic purpose Start: 07-24-2022 End: 07-24-2022 Subsequent hospital visit by physician Fernanda Daniel DO Work Phone: [facility] Comment on above: Right foot pain (Mary eloisa Dx); Charcot's joint of right foot; Nerve pain Start: 05-14-2022 End: 05-16-2022 Subsequent hospital visit by physician Ani Tabor Mri [address] MRI Comment on above: Left foot pain; Charcot's joint of foot, left Start: 03-05-2022 End: 03-05-2022 Subsequent hospital visit by physician Pardeep Cordon DO Work Phone: [facility] Start: 05-07-2021 End: 05-09-2021 Subsequent hospital visit by physician Drea Juarez Mammo [facility] Mammography Comment on above: Screening breast exa mination Start: 10-06-2020 End: 10-06-2020 Subsequent hospital visit by physician Pardeep [facility] Start: 03-13-2020 End: 03-15-2020 Subsequent hospital visit by physician Drea Garcia Mammo [facility] Mammography Comment on above: Breast asymmetry Start: 08-30-2019 End: 09-01-2019 Subsequent hospital visit by physician Drea Garcia Mammo [facility] Mammography Comment on above: Breast asymmetry Start: 08-23-2019 End: 08-25-2019 Subsequent hospital visit by physician Drea Garcia Mammo [facility] Mammography Comment on above: Screening mammogram, encounter for Post-menopausal Start: 08-04-2018 End: 08-05-2018 Patient encounter procedure MARY KATE MARS Facility:[facility] Procedures Date Procedure Procedure Detail Performing Clinician Start: 03-21-2023 Comprehensive metabo lic panel Pardeep Cordon DO Work Phone: Start: 03-21-2023 Lipid panel Pardeep garduno DO Work Phone: Start: 03-21-2023 Urnls dip stick/tabl et rgnt auto w/o microscopy Pardeep Cordon DO Work Phone: Start: 10-28-2022 Unlisted us procedure D roz María DO Work Phone: Start: 05-14-2022 Mri any jt lower ext rem w/o contrast matrl Tom Cordon DPM Work Phone: Start: 03-05-2022 Cyanocobalamin vitamin b-12 Pardeep Saha Marquiselaureen DO Work Phone: Start: 05-07-2021 Screening mammograph y bi 2-view breast inc cad Pardeep Cordon DO Work Phone: Start: 10-06-2020 Glucose quantitative blood xcpt reagent strip Pardeep Cordon Work Phone: Start: 10-06-2020 Hemoglobin glycosylated a1c Pardeep Cordon Work Phone: Start: 03-13-2020 Us breast uni real t dennis with image limited Yaz A Beam Work Phone: Start: 03-13-2020 Tomosynthesis, mammo screen Yaz Smiley Beam Work Phone: Start: 08-30-2019 Us breast uni real t dennis with image limited Francia Alvarez Work Phone: Start: 08-30-2019 Tomosynthesis, mammo screen Francia Alvarez Work Phone: Start: 08-23-2019 Dxa bone density juarez dy 1/> sites axial skel Crystal Gallego Work Phone: Start: 08-23-2019 Screening digital br east tomosynthesis bi Crystal Gallego Work Phone: Start: 06-30-2019 Microscopic observat ion [Identifier] in Cervix by Cyto stain Pardeep Cordon DO Work Phone: Plan of Treatment Date Care Activity Detail Author Start: 07-21-2033 DTaP/Tdap/Td vaccine (2 - Td or Tdap) DTaP/Tdap/Td vaccine (2 - Td or Tdap) [facility] Start: 03-21-2028 Lipid panel Lipids [facility] Start: 01-09-2027 Lipid panel Lipids [facility] Start: 08-20-2024 Screening for malign ant neoplasm of breast Breast cancer screen [facility] Start: 06-30-2024 Cervical cancer screen Cervical canc er screen [facility] [email or web address] [place], [place] Start: 06-30-2024 Screening for malign ant neoplasm of cervix [facility] [employer] Start: 09-29-2023 Annual Wellness Visi t (Medicare Advantage) Annual Wellness Visit (Medicare Advantage) [facility] Start: 09-12-2023 End: 09-12-[address] [facility] [email or web address] [facility] Comment on above: 60day lead pull righ t side Start: 08-20-2023 Screening for malign ant neoplasm of breast Breast cancer screen [facility] Start: 07-18-2023 End: 07-18-[address] [facility] [email or web address] Comment on above: 60day lead pull left side Start: 07-04-2023 End: 07-04-2023 Patient encounter procedure 07/04/2023 Office Visit Pain Management Fernanda Daniel, DO [address] [place] [address] [facility] [email or web address] [facility] Start: 06-17-2023 End: 06-17-2023 Patient encounter procedure 06/17/2023 Appointment Pain Management Fernanda Daniel, DO [address] [place] [address] [facility] Start: 05-27-2023 End: 05-27-2023 Patient encounter procedure 05/27/2023 Appointment Pain Management Fernanda Daniel, DO [address] [place] [address] [facility] Start: 05-13-2023 End: 05-13-2023 Patient encounter procedure 05/13/2023 Appointment Pain Management MaríaFernanda DO [address] [place] [address] [facility] Start: 04-29-2023 Influenza vaccination Flu vaccine (# 1) [facility] Start: 04-29-2023 End: 04-29-2023 Patient encounter procedure 04/29/2023 Appointment Pain Management MaríaMikeinDO [place] [address] [facility] Start: 03-21-2023 Annual Wellness Visi t (AWV) Annual Wellness Visit (AWV) [facility] Start: 02-11-2023 End: 02-11-2023 Patient encounter procedure 02/11/2023 Appointment Pain Management María FernandaDO [address] [address] [facility] Start: 01-28-2023 End: 01-28-2023 Patient encounter procedure 01/28/2023 Appointment Pain Management [place] [address] [facility] Start: 12-25-2022 End: 12-25-2022 Patient encounter procedure 12/25/2022 Appointment Pain Management [place] [address] [facility] Start: 12-10-2022 End: 12-10-2022 Patient encounter procedure 12/10/2022 Appointment Pain Management [place] [address] [facility] Start: 11-11-2022 End: 11-11-2022 Patient encounter procedure 11/11/2022 Appointment Pain Management MaríaMikein, DO [address] [place] [address] [facility] Start: 10-01-2022 End: 10-01-2022 Patient encounter procedure 10/01/2022 Appointment Pain Management [place], Fernanda, DO [address] [place] [address] [facility] Start: 09-16-2022 End: 09-16-2022 Patient encounter procedure 09/16/2022 Appointment Pain Management María Fernanda DO [address] [place] [address] [facility] Start: 08-20-2022 End: 08-20-2022 Patient encounter procedure 08/20/2022 Appointment Radiology [facility] Start: 08-14-2022 End: 08-14-2022 Patient encounter procedure 08/14/2022 Office Visit Obstetrics and Gynecology Francia Alvarez, CUSTOMER SERVICE REPRESENTATIVE TEACHER - EXTENSION ASSOCIATE [address] [address] [facility] Obstetrics & Gynecology Start: 08-12-2022 End: 08-12-2022 Patient encounter procedure 08/12/2022 Appointment Pain Management MaríaMikein DO [address] [place] [address] [facility] Start: 06-30-2022 Screening for malign ant neoplasm of cervix Pap smear [facility] Start: 05-30-2022 Influenza vaccination [facility] Start: 05-07-2022 Screening for malign ant neoplasm of breast Breast cancer screen [facility] Start: 12-16-2021 COVID-19 Vaccine (3 - Booster for Janie series) COVID-19 Vaccine (3 - Booster for Janie series) [facility] Start: 2021 Respiratory Syncytia l Virus (RSV) or age 60 yrs+ (1 - 1-dose 60+ series) Respiratory Syncytial Virus (RSV) or age 60 yrs+ (1 - 1-dose 60+ series) [facility] Start: 07-02-2021 Shingles vaccine (2 of 2) Shingles vaccine (2 of 2) [facility] Start: 05-30-2021 Influenza vaccination Flu vaccine (# 1) [facility] Work Phone: Start: 03-13-2021 Screening for malign ant neoplasm of breast Breast cancer screen [place], [place] Start: 10-11-2020 End: 10-11-2020 Office Visit 10/11/2020 Office Visit Podiatry Tom Cordon, DPM [address] [place] [address] [phone] [facility] Start: 08-30-2020 Breast cancer screen Breast cancer s [place], [place] Start: 08-23-2020 Breast cancer screen Breast cancer [place], [place] Start: 05-30-2020 Influenza vaccination [place], [place] Start: 08-30-2019 End: 08-30-2019 Appointment 08/30/2019 Appointment Radiology [facility] Start: 05-30-2019 Influenza vaccination Flu vaccine (# 1) [place], [place] Start: 2011 Colon cancer screen colonoscopy Colon cancer screen colonoscopy [place], [place] Start: 2011 Screening for malign ant neoplasm of colon Colon cancer screen colonoscopy [place], [place] Start: 2011 Shingles Vaccine (1 of 2) Shingles Vaccine (1 of 2) [facility] Start: 2006 Screening for malign ant neoplasm of colon [facility] Start: 2001 Diabetes screen Diabetes screen [place], [place] Start: 2001 Lipid panel Lipid screen [place], [place] Start: 2001 Lipid screen Lipid screen [place] Start: 1980 DTaP/Tdap/Td vaccine (1 - Tdap) DTaP/Tdap/Td vaccine (1 - Tdap) [facility] Start: 1979 Hepatitis C screening Hepatitis C sc reen [facility] Start: 1976 HIV screen HIV screen [place], [place] Start: 1976 HIV screening HIV screen [facility] Start: 1973 Depression Screen Depression Screen [facility] Start: 1972 DTaP/Tdap/Td vaccine (1 - Tdap) DTaP/Tdap/Td vaccine (1 - Tdap) [place], [place] Start: 1961 Hepatitis C screen Hepatitis C scree n [place], [place] Start: 1961 Hepatitis C screening Hepatitis C sc reen [place] End: 07-24-2022 DRUG SCREEN, PAIN [facility] [employer] Phone: Comment on above: One Time for 1 Occur rences starting 07/24/2022 until 07/24/2022 End: 12-10-2022 US GUIDED NEEDLE PLACEMENT [facility] [employer] Phone: Comment on above: 1 Occurrences starti ng 12/10/2022 until 12/10/2022 Immunizations Immunization Date Immunization Notes Care Provider Suad rosales 07-03-2022 COVID-19, PFIZER Bivalent BOOSTER, DO NOT Dilute, (age 12y+), IM, 30 mcg/0.3 mL Fernanda María DO Work Phone: [facility] [employer] Work Phone: 07-03-2022 influenza virus vaccine, unspecified formulation Fernanda María DO Work Phone: [facility] [employer] Work Phone: 08-18-2021 COVID-19, PFIZER PUR PLE top, DILUTE for use, (age 12 y+), 30mcg/0.3mL Fernanda [place] DO Work Phone: [employer] Work Phone: 05-07-2021 zoster vaccine recombinant Fernanda [place] DO Work Phone: [employer] Work Phone: 12-05-2020 COVID-19, J&J, (age 18y+), IM, 0.5 mL Fernanda María DO Work Phone: [employer] Work Phone: 06-23-2020 influenza virus vaccine, unspecified formulation Fernanda [place] DO Work Phone: [employer] Work Phone: 06-23-2020 Seasonal, quadrivale nt, recombinant, injectable influenza vaccine, preservative free Fernanda María DO Work Phone: [facility] [employer] Work Phone: 06-18-2019 Influenza, injectabl e, Madin Daniella Canine Kidney, preservative free, quadrivalent Fernanda [place] DO Work Phone: [employer] Work Phone: 07-08-2017 influenza virus vaccine, unspecified formulation Fernanda [place] DO Work Phone: [facility] [employer] Payers Date Payer Category Payer Medicare [id number] 2022 Unknown [id number] .[id number] 2021 Private Health Insurance [id number] .[id number] 2021 Private Health Insurance [id number] .[id number] 2021 Unknown [facility] MEDICAID [id number] 2021-Present [phone] CLAIMS DEPARTMENT [address] [place] [address] [id number] .[id number] 2019 Unknown [employer] [id number] 2019-Present [phone] [address] [place] [address] [id number] .[id number] 2019 Unknown [employer] M [employer] [address] xxxxxxxxxxxx 2019-Present [phone] [address] [place] [address] xxxxxxxxxxxx [id number] .[id number] 1961 Unknown [id number] 2.16.840.1.772085.3.579.2 .593 1961 Unknown [id number] 2.16.840.1.416558.3.579.2 .175 1961 Unknown [id number] 2.16.840.1.602871.3.579.2 .175 1961 Unknown [id number] 2.16.840.1.443248.3.579.2 .175 1961 Unknown [id number] 2.16.840.1.335704.3.579.2 .175 1961 Unknown [id number] 2.16.840.1.076349.3.579.2 .175 1961 Unknown [id number] 2.16.840.1.712519.3.579.2 .175 1961 Unknown [id number] 2.16.840.1.035243.3.579.2 .175 1961 Unknown [id number] 2.16.840.1.785075.3.579.2 .175 1961 Unknown [id number] 2.16.840.1.841770.3.579.2 .175 1961 Unknown [id number] 2.16.840.1.305222.3.579.2 .176 1961 Unknown [id number] 2.16.840.1.645131.3.579.2 .176 1961 Unknown [id number] 2.16.840.1.059903.3.579.2 .176 1961 Unknown [id number] 2.16.840.1.326653.3.579.2 .176 1961 Unknown [id number] 2.16.840.1.726228.3.579.2 .176 1961 Unknown [id number] 2.16.840.1.087840.3.579.2 .176 1961 Unknown [id number] 2.16.840.1.503934.3.579.2 .176 1961 Unknown [id number] 2.16.840.1.034173.3.579.2 .1259 1961 Unknown [id number] 2.16.840.1.931037.3.579.2 .1259 1961 Unknown [id number] 2.16.840.1.014039.3.579.2 .1259 1959 Unknown [id number] Social History Date Type Detail Facility Start: 06-30-2019 End: 05-13-2022 Tobacco smoking status [facility] Never smoker [place], [place] Start: 06-30-2019 End: 11-17-2023 Alcohol intake Current non-drinker of alcohol (finding) [facility] [email or web address] Start: 1960 Sex Assigned At Not on file [facility] [place] [place] Start: 09-13-2020 End: 05-13-2022 Tobacco use and exposure [facility] Start: 05-03-2022 End: 12-10-2022 Exposure to SARS-CoV-2 (event) Not sure [facility] [email or web address] Start: 06-30-2019 End: 06-17-2023 History of Social function [employer] Start: 06-30-2019 End: 06-17-2023 Tobacco use panel [employer] [facility] PHQ-2 Score 0 [employer] How often to you hav e a drink containing alcohol? Monthly or [facility] How many standard dr inks containing alcohol do you have on a typical day? 1 or 2 [employer] How often do you hav e 6 or more drinks on 1 occasion? Never [facility] [employer] Clinical Notes 07-24-2022 to 11-17-2023 Fernanda Daniel, - 11/17/2023 10:30 AM ESTDischarge InstructionsFernanda Daniel DO - 05/19/2023 10:00 AM EDTDischarge InstructionsFernanda Daniel DO - 12/25/2022 11:15 AM EDTDischarge Instructions Note Date & Type Note Facility 11-17-2023 History of Present illness Narrative [facility] Note Encounter Date: 11/17/2023 SUBJECTIVE: Chief complaint: Left and right foot pain History of Present Illness: Davina Radford is a 63 y.o. female who presents with foot pain Medication Refill: n/a Current Complaints of Pain: Location: both feet,left is worse Radiation: no Severity:Moderate Pain Numerical Score - 2/3 today Average: 8/9 Highest: 10+ Lowest: 8 Character/Quality: Complains of pain that is throbbing and patient says it catches at certain points, almost makes her lose balance Timing: Constant Associated symptoms: none Numbness: no Weakness: no Exacerbating factors: walking Alleviating factors: ice, foot baths Length of time pain has been present: Started about 30 years ago, the last 3 years have been the worst Inciting event/injury: no Bowel/Bladder incontinence: no Falls: no Physical Therapy: yes History of Interventions: Surgery: 8 Injections: Nerve blocks Imaging: Right foot x-ray 05/14/2022 Impression Extensive postsurgical changes with bridging hardware described above. The patient has collapse of the midfoot with plantar subluxation of the talus in relation of the calcaneus. No change from prior study. There is disorder in the midfoot suggesting Charcot foot. No appreciable interval change from prior exam. Past Medical History: Diagnosis Date Arthritis Depression Past Surgical History: Procedure Laterality Date APPENDECTOMY CARPAL TUNNEL RELEASE Bilateral 2011 SECTION 1979 FOOT SURGERY Right oct 05 2014 GASTRIC BYPASS SURGERY 1998 INNER EAR SURGERY JOINT REPLACEMENT Left 2004 MASTOID SURGERY 1982 Family History Problem Relation Age of Onset Heart Attack Mother Heart Attack Father Breast Cancer Sister 55 Cancer Sister unknown type, passed at 42 Social History Socioeconomic History Marital status: Spouse name: Not on file Number of children: Not on file Years of education: Not on file Highest education level: Not on file Occupational History Not on file Tobacco Use Smoking status: Never Smokeless tobacco: Never Substance and Sexual Activity Alcohol use: No Drug use: No Sexual activity: Not on file Other Topics Concern Not on file Social History Narrative Not on file Social Determinants of Health Financial Resource Strain: Not on file Food Insecurity: Not on file Transportation Needs: Not on file Physical Activity: Not on file Stress: Not on file Social Connections: Not on file Intimate Partner Violence: Not on file Housing Stability: Not on file Medications & Allergies: Current Outpatient Medications Medication Instructions bisoprolol-hydroCHLOROthiazide (ZIAC) 5-6.25 MG per tablet No dose, route, or frequency recorded. buPROPion (WELLBUTRIN XL) 300 mg, Oral, EVERY MORNING busPIRone (BUSPAR) 30 MG tablet No dose, route, or frequency recorded. busPIRone (BUSPAR) 15 mg, Oral, 2 TIMES DAILY Calcium 500-125 MG-UNIT TABS 1 tablet, 2 TIMES DAILY celecoxib (CELEBREX) 200 MG capsule No dose, route, or frequency recorded. cholestyramine (QUESTRAN) 4 GM/DOSE powder MIX 1 SCOOP IN 8 OUNCES OF LIQUID AND DRINK ONCE DAILY FOR 5 DAYS. cyclobenzaprine (FLEXERIL) 10 MG tablet TAKE 1 TABLET BY MOUTH TWICE DAILY FOR 30 DAYS NEEDED ferrous sulfate (IRON 325) 325 mg, Oral, 2 TIMES DAILY FLUoxetine (PROZAC) 40 mg, Oral, DAILY gabapentin (NEURONTIN) 300 MG capsule TAKE 1 CAPSULE BY MOUTH THREE TIMES DAILY FOR 90 DAYS lidocaine (LIDODERM) 5 % No dose, route, or frequency recorded. meloxicam (MOBIC) 15 mg, Oral, DAILY Misc. Devices MISC Please dispense 1 Qagan Tay[place]ungin Boot Length: Lifetime ofloxacin (OCUFLOX) 0.3 % solution INSTILL 10 DROPS INTO AFFECTED EAR ONCE DAILY FOR 7 DAYS pantoprazole (PROTONIX) 20 mg, Oral, DAILY SUMAtriptan (IMITREX) 100 MG tablet No dose, route, or frequency recorded. traMADol (ULTRAM) 50 mg, Oral, EVERY 6 HOURS PRN valACYclovir (VALTREX) 500 MG tablet No dose, route, or frequency recorded. Allergies Allergen Reactions Bactrim [Sulfamethoxazole-Trimethoprim] Pcn [Penicillins] Review of Systems: Constitutional: negative for weight changes or fevers Cardiovascular: negative for chest pain, palpitations, irregular heart beat Respiratory: negative for dyspnea, cough, wheezing Gastrointestinal: negative for constipation, diarrhea, nausea Genitourinary: negative for bowel/bladder incontinence Musculoskeletal: positive for right foot pain Neurological: negative for radicular leg pain, leg weakness or numbness/tingling Behavioral/Psych: negative for anxiety/depression Hematological: negative for abnormal bleeding, anticoagulation use or antiplatelet use All other systems reviewed and are negative OBJECTIVE: There were no vitals filed for this visit. PHYSICAL EXAM GENERAL: No acute distress, pleasant, well-appearing HEENT: Normocephalic, atraumatic, Pupils equal and round CARDIOVASCULAR: Well perfused, No peripheral cyanosis PULMONARY: Good chest wall excursion, breathing unlabored PSYCH: Appropriate affect and insight, non-pressured speech SKIN: No rashes or lesions MUSCULOSKELETAL: Inspection: The back and extremities are symmetric and aligned. Muscle bulk is normal in appearance. NEUROMUSCULAR: Patient ambulates unassisted Gait is antalgic Sensation to light touch is intact in lower extremities Strength is full in lower extremities No ankle clonus DIAGNOSIS: ICD-10-CM 1. 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 Lesion of sciatic nerve, left G57.02 3. Left foot pain M79.672 4. Right foot pain M79.671 5. Charcot's joint of right foot M14.671 6. Nerve pain M79.2 ASSESSMENT: Davina Radford is a 63 y.o.female who presents with chronic bilateral foot pain. To review, patient has had right foot surgery. The patient's history and physical examination are consistent with chronic left and right foot pain secondary to left and right sciatic nerve entrapment. She underwent a right and left popliteal (sciatic) nerve block using ultrasound guidance on 10/28/2022 and 12/10/2022 with 70% and 50% improvement in pain and function respectively. She underwent right and left popliteal (sciatic) nerve peripheral nerve stimulator implant using ultrasound guidance on 05/27/2023 and 06/17/2023 with 70% improvement in pain and function. Since last visit, the patient continues to report significant improvement in her bilateral foot pain. She has been active at the [facility] and using nearly daily foot baths with Epsom salts. She also reports weaning off the tramadol and I discussed with her weaning off the gabapentin (instructions provided on how to wean) as she feels so much better with her foot pain. Neurologically, it appears the patient has full strength and normal sensation. There is no evidence of myelopathy on examination. PLAN: Medications: For nonopioid therapy, the following medications were prescribed: -Wean off gabapentin. Take twice daily for 3-5 days then decrease to daily for 3-5 days, then discontinue medication Opioid therapy: -PCP managing Tramadol Interventions: -Status post right and left popliteal (sciatic) nerve peripheral nerve stimulator implant using ultrasound guidance on 05/27/2023 and 06/17/2023 with 70% improvement in pain and function Imaging: -No new imaging Behavioral Therapies: -Continue daily stretching and home exercise program Referrals: -None Follow-up Plan: -As needed Patient was offered intervention where appropriate. Multi-modal Pain Therapy: The patient was explicitly considered for multimodal and interdisciplinary therapy. Non-opioid and non-pharmacological opportunities to enhance analgesia and quality of life have been and will continue to be pursued. Fernanda Daniel DO Interventional Pain Management/PM&R [facility] No orders of the defined types were placed in this encounter. documented in this encounter [facility] 06-17-2023 Hospital Discharge instructions Alysa Ferrari RN - 06/17/2023 8:29 AM EDT Discharge Instructions following Sedation or Anesthesia: If you have received a sedative/anesthetic therefore, you should not consume any alcoholic beverages for minimum of 12 hours. Do not sign legal documents for 24 hours. Dizziness, drowsiness, and unsteadiness may occur. Rest when need to. Increase diet as tolerated. Keep up on fluids if diet allows. *SEE SPRINT INSTRUCTION SHEET PROVIDED BY WHEEL PRESS CLERK Call [facility] at [phone] if you experience: Fever, chills or temperature over 100 Vomiting, Headache, persistent stiff neck, nausea, blurred vision Difficulty in urinating or unable to urinate with 8 hours Increase in weakness, numbness or loss of function Increased redness, swelling or drainage at the injection site acquisition specialist for any signs of infection, such as, redness, swelling, green or yellow foul smelling drainage at injection site. Increased pain or fever. documented in this encounter [facility] 05-19-2023 History of Present illness Narrative Chronic Pain Clinic Note Encounter Date: 05/19/2023 SUBJECTIVE: Chief complaint: Left and right foot pain History of Present Illness: Davina Radford is a 62 y.o. female who presents with foot pain Medication Refill: n/a Current Complaints of Pain: Location: both feet,left is worse Radiation: no Severity: moderate Pain Numerical Score - 12 Average: 8/9 Highest: 10+ Lowest: 8 Character/Quality: Complains of pain that is throbbing and patient says it catches at certain points, almost makes her lose balance Timing: Constant Associated symptoms: none Numbness: no Weakness: no Exacerbating factors: walking Alleviating factors: ice, foot baths Length of time pain has been present: Started about 30 years ago, the last 3 years have been the worst Inciting event/injury: no Bowel/Bladder incontinence: no Falls: no Physical Therapy: yes History of Interventions: Surgery: 8 Injections: Nerve blocks Imaging: Right foot x-ray 05/14/2022 Impression Extensive postsurgical changes with bridging hardware described above. The patient has collapse of the midfoot with plantar subluxation of the talus in relation of the calcaneus. No change from prior study. There is disorder in the midfoot suggesting Charcot foot. No appreciable interval change from prior exam. Past Medical History: Diagnosis Date Arthritis Depression Past Surgical History: Procedure Laterality Date APPENDECTOMY CARPAL TUNNEL RELEASE Bilateral 2010 SECTION 1979 FOOT SURGERY Right oct 05 2014 GASTRIC BYPASS SURGERY 1998 INNER EAR SURGERY JOINT REPLACEMENT Left 2004 MASTOID SURGERY 1982 Family History Problem Relation Age of Onset Heart Attack Mother Heart Attack Father Breast Cancer Sister 55 Cancer Sister unknown type, passed at 42 Social History Socioeconomic History Marital status: Spouse name: Not on file Number of children: Not on file Years of education: Not on file Highest education level: Not on file Occupational History Not on file Tobacco Use Smoking status: Never Smokeless tobacco: Never Substance and Sexual Activity Alcohol use: No Drug use: No Sexual activity: Not on file Other Topics Concern Not on file Social History Narrative Not on file Social Determinants of Health Financial Resource Strain: Not on file Food Insecurity: Not on file Transportation Needs: Not on file Physical Activity: Not on file Stress: Not on file Social Connections: Not on file Intimate Partner Violence: Not on file Housing Stability: Not on file Medications & Allergies: Current Outpatient Medications Medication Instructions bisoprolol-hydroCHLOROthiazide (ZIAC) 5-6.25 MG per tablet No dose, route, or frequency recorded. buPROPion (WELLBUTRIN XL) 300 mg, Oral, EVERY MORNING busPIRone (BUSPAR) 30 MG tablet No dose, route, or frequency recorded. busPIRone (BUSPAR) 15 mg, Oral, 2 TIMES DAILY Calcium 500-125 MG-UNIT TABS 1 tablet, 2 TIMES DAILY celecoxib (CELEBREX) 200 MG capsule No dose, route, or frequency recorded. cholestyramine (QUESTRAN) 4 GM/DOSE powder MIX 1 SCOOP IN 8 OUNCES OF LIQUID AND DRINK ONCE DAILY FOR 5 DAYS. cyclobenzaprine (FLEXERIL) 10 MG tablet TAKE 1 TABLET BY MOUTH TWICE DAILY FOR 30 DAYS NEEDED ferrous sulfate (IRON 325) 325 mg, Oral, 2 TIMES DAILY FLUoxetine (PROZAC) 40 mg, Oral, DAILY gabapentin (NEURONTIN) 300 MG capsule TAKE 1 CAPSULE BY MOUTH THREE TIMES DAILY FOR 90 DAYS lidocaine (LIDODERM) 5 % No dose, route, or frequency recorded. meloxicam (MOBIC) 15 mg, Oral, DAILY Misc. Devices MISC Please dispense 1 Qagan Tayagungin Boot Length: Lifetime ofloxacin (OCUFLOX) 0.3 % solution INSTILL 10 DROPS INTO AFFECTED EAR ONCE DAILY FOR 7 DAYS omeprazole (PRILOSEC) 20 mg, Oral, DAILY SUMAtriptan (IMITREX) 100 MG tablet No dose, route, or frequency recorded. traMADol (ULTRAM) 50 mg, Oral, EVERY 6 HOURS PRN valACYclovir (VALTREX) 500 MG tablet No dose, route, or frequency recorded. Allergies Allergen Reactions Bactrim [Sulfamethoxazole-Trimethoprim] Pcn [Penicillins] Review of Systems: Constitutional: negative for weight changes or fevers Cardiovascular: negative for chest pain, palpitations, irregular heart beat Respiratory: negative for dyspnea, cough, wheezing Gastrointestinal: negative for constipation, diarrhea, nausea Genitourinary: negative for bowel/bladder incontinence Musculoskeletal: positive for right foot pain Neurological: negative for radicular leg pain, leg weakness or numbness/tingling Behavioral/Psych: negative for anxiety/depression Hematological: negative for abnormal bleeding, anticoagulation use or antiplatelet use All other systems reviewed and are negative OBJECTIVE: Vitals: 05/19/23 1004 Resp: 20 Temp: 97.3 F (36.3 C) PHYSICAL EXAM GENERAL: No acute distress, pleasant, well-appearing HEENT: Normocephalic, atraumatic, Pupils equal and round CARDIOVASCULAR: Well perfused, No peripheral cyanosis PULMONARY: Good chest wall excursion, breathing unlabored PSYCH: Appropriate affect and insight, non-pressured speech SKIN: No rashes or lesions MUSCULOSKELETAL: Inspection: The back and extremities are symmetric and aligned. Muscle bulk is normal in appearance. Left and right foot exam: Surgical scar present Tenderness to palpation along the medial lateral joint line of ankle Full passive range of motion NEUROMUSCULAR: Patient ambulates unassisted Gait is antalgic Sensation to light touch is intact in lower extremities Strength is full in lower extremities No ankle clonus DIAGNOSIS: ICD-10-CM 1. 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 Lesion of sciatic nerve, left G57.02 3. Left foot pain M79.672 4. Right foot pain M79.671 5. Charcot's joint of right foot M14.671 6. Nerve pain M79.2 ASSESSMENT: Davina Radford is a 62 y.o.female who presents with chronic bilateral foot pain. To review, patient has had right foot surgery and has been wearing a CAHTO boot at times for her right foot pain. The patient's history and physical examination are consistent with chronic left and right foot pain secondary to left and right sciatic nerve entrapment. She underwent a right and left popliteal (sciatic) nerve block using ultrasound guidance on 10/28/2022 and 12/10/2022 with 70% and 50% improvement in pain and function respectively. Therefore, I will plan for a right then left popliteal (sciatic) nerve peripheral nerve stimulator implant using ultrasound guidance for pain relief and improvement in functionality. She underwent a right popliteal (sciatic) nerve peripheral nerve stimulator implant using ultrasound guidance on 05/13/2023 with 75% improvement in pain and function. However, the patient sustained several falls onto her right knee which caused the lead to fracture. The lead tip was removed at today's visit with the tip intact however damage was noticed along the lead. Therefore, I will plan for re-implantation of the right side. Neurologically, it appears the patient has full strength and normal sensation. There is no evidence of myelopathy on examination. There are no red flags in the patient's history. The patient has failed conservative measures including TENS unit, outpatient physical therapy, greater than 3 medications for pain relief, a self-directed therapy program, as well as activity modification all within the last 6 weeks over 3 months. The patient's pain has been causing worsening quality of life and function. PLAN: Medications: For nonopioid therapy, the following medications were prescribed: -Continue gabapentin 300 mg 3 times daily Opioid therapy: -PCP managing Tramadol Interventions: -Plan for reimplantation of right popliteal (sciatic) nerve peripheral nerve stimulator implant using ultrasound guidance. The left popliteal (sciatic) nerve peripheral nerve stimulator implant using ultrasound guidance will be performed 2 weeks later. -Status post left popliteal (sciatic) nerve block using ultrasound guidance on 12/10/2022 with 50% improvement in pain and function -Status post right popliteal (sciatic) nerve block using ultrasound guidance on 10/28/2022 with 70% improvement in pain and function Imaging: -No new imaging Behavioral Therapies: -Continue daily stretching and home exercise program Referrals: -Podiatric surgery with Dr. Nando Olivo Follow-up Plan: -60 days after implant Patient was offered intervention where appropriate. Multi-modal Pain Therapy: The patient was explicitly considered for multimodal and interdisciplinary therapy. Non-opioid and non-pharmacological opportunities to enhance analgesia and quality of life have been and will continue to be pursued. Fernanda Daniel DO [facility] minutes was utilized for this patient encounter including discussing case with peripheral nerve stimulator rep, removing the lead at today's visit, [id number] time with patient, reviewing previous imaging, injections, and medical history while reviewing plan of care with patient which included injection therapy, physical therapy, and medication management. Orders Placed This Encounter CO PRQ IMPLTJ NEUROSTIMULATOR ELTRD PERIPHERAL NRV Right popliteal (sciatic) nerve peripheral nerve stimulator implant using ultrasound guidance documented in this encounter [facility] 01-28-2023 Hospital Discharge instructions Marium Charles RN - 01/28/2023 7:32 AM EDT Discharge Instructions following Sedation or Anesthesia: If you have received a sedative/anesthetic therefore, you should not consume any alcoholic beverages for minimum of 12 hours. Do not sign legal documents for 24 hours. Dizziness, drowsiness, and unsteadiness may occur. Rest when need to. Increase diet as tolerated. Keep up on fluids if diet allows. *SEE SPRINT INSTRUCTION SHEET PROVIDED BY WHEEL PRESS CLERK Call [facility] at [phone] if you experience: Fever, chills or temperature over 100 Vomiting, Headache, persistent stiff neck, nausea, blurred vision Difficulty in urinating or unable to urinate with 8 hours Increase in weakness, numbness or loss of function Increased redness, swelling or drainage at the injection site acquisition specialist for any signs of infection, such as, redness, swelling, green or yellow foul smelling drainage at injection site. Increased pain or fever. documented in this encounter [facility] Work Phone: 12-25-2022 History of Present illness Narrative Chronic Pain Clinic Note Encounter Date: 12/25/2022 SUBJECTIVE: Chief complaint: Left and right foot pain History of Present Illness: Davina Radford is a 62 y.o. female who presents with foot pain Medication Refill: n/a Current Complaints of Pain: Location: both feet,left is worse Radiation: no Severity: moderate Pain Numerical Score - 8/9 Average: 8/9 Highest: 10+ Lowest: 8 Character/Quality: Complains of pain that is throbbing and patient says it catches at certain points, almost makes her lose balance Timing: Constant Associated symptoms: none Numbness: no Weakness: no Exacerbating factors: walking Alleviating factors: ice, foot baths Length of time pain has been present: Started about 30 years ago, the last 3 years have been the worst Inciting event/injury: no Bowel/Bladder incontinence: no Falls: no Physical Therapy: yes History of Interventions: Surgery: 8 Injections: Nerve blocks Imaging: Right foot x-ray 05/14/2022 Impression Extensive postsurgical changes with bridging hardware described above. The patient has collapse of the midfoot with plantar subluxation of the talus in relation of the calcaneus. No change from prior study. There is disorder in the midfoot suggesting Charcot foot. No appreciable interval change from prior exam. Past Medical History: Diagnosis Date Arthritis Depression Past Surgical History: Procedure Laterality Date APPENDECTOMY CARPAL TUNNEL RELEASE Bilateral 2010 SECTION 1979 FOOT SURGERY Right oct 05 2014 GASTRIC BYPASS SURGERY 1998 INNER EAR SURGERY JOINT REPLACEMENT Left 2004 MASTOID SURGERY 1982 Family History Problem Relation Age of Onset Heart Attack Mother Heart Attack Father Breast Cancer Sister 55 Cancer Sister unknown type, passed at 42 Social History Socioeconomic History Marital status: Spouse name: Not on file Number of children: Not on file Years of education: Not on file Highest education level: Not on file Occupational History Not on file Tobacco Use Smoking status: Never Smokeless tobacco: Never Substance and Sexual Activity Alcohol use: No Drug use: No Sexual activity: Not on file Other Topics Concern Not on file Social History Narrative Not on file Social Determinants of Health Financial Resource Strain: Not on file Food Insecurity: Not on file Transportation Needs: Not on file Physical Activity: Not on file Stress: Not on file Social Connections: Not on file Intimate Partner Violence: Not on file Housing Stability: Not on file Medications & Allergies: Current Outpatient Medications Medication Instructions bisoprolol-hydroCHLOROthiazide (ZIAC) 5-6.25 MG per tablet No dose, route, or frequency recorded. buPROPion (WELLBUTRIN XL) 300 mg, Oral, EVERY MORNING busPIRone (BUSPAR) 30 MG tablet No dose, route, or frequency recorded. busPIRone (BUSPAR) 15 mg, Oral, 2 TIMES DAILY Calcium 500-125 MG-UNIT TABS 1 tablet, Oral, 2 TIMES DAILY celecoxib (CELEBREX) 200 MG capsule No dose, route, or frequency recorded. cholestyramine (QUESTRAN) 4 GM/DOSE powder MIX 1 SCOOP IN 8 OUNCES OF LIQUID AND DRINK ONCE DAILY FOR 5 DAYS. cyclobenzaprine (FLEXERIL) 10 MG tablet TAKE 1 TABLET BY MOUTH TWICE DAILY FOR 30 DAYS NEEDED ferrous sulfate (IRON 325) 325 mg, Oral, 2 TIMES DAILY FLUoxetine (PROZAC) 40 mg, Oral, DAILY gabapentin (NEURONTIN) 300 mg, Oral, 3 TIMES DAILY lidocaine (LIDODERM) 5 % No dose, route, or frequency recorded. meloxicam (MOBIC) 15 mg, Oral, DAILY Misc. Devices MISC Please dispense 1 Qagan Tayagungin Boot Length: Lifetime ofloxacin (OCUFLOX) 0.3 % solution INSTILL 10 DROPS INTO AFFECTED EAR ONCE DAILY FOR 7 DAYS omeprazole (PRILOSEC) 20 mg, Oral, DAILY SUMAtriptan (IMITREX) 100 MG tablet No dose, route, or frequency recorded. traMADol (ULTRAM) 50 mg, Oral, EVERY 6 HOURS PRN valACYclovir (VALTREX) 500 MG tablet No dose, route, or frequency recorded. Allergies Allergen Reactions Bactrim [Sulfamethoxazole-Trimethoprim] Pcn [Penicillins] Review of Systems: Constitutional: negative for weight changes or fevers Cardiovascular: negative for chest pain, palpitations, irregular heart beat Respiratory: negative for dyspnea, cough, wheezing Gastrointestinal: negative for constipation, diarrhea, nausea Genitourinary: negative for bowel/bladder incontinence Musculoskeletal: positive for right foot pain Neurological: negative for radicular leg pain, leg weakness or numbness/tingling Behavioral/Psych: negative for anxiety/depression Hematological: negative for abnormal bleeding, anticoagulation use or antiplatelet use All other systems reviewed and are negative OBJECTIVE: Vitals: 12/25/22 1122 BP: (!) 149/94 Pulse: 71 Resp: 20 Temp: 97.3 F (36.3 C) SpO2: 96% PHYSICAL EXAM GENERAL: No acute distress, pleasant, well-appearing HEENT: Normocephalic, atraumatic, Pupils equal and round CARDIOVASCULAR: Well perfused, No peripheral cyanosis PULMONARY: Good chest wall excursion, breathing unlabored PSYCH: Appropriate affect and insight, non-pressured speech SKIN: No rashes or lesions MUSCULOSKELETAL: Inspection: The back and extremities are symmetric and aligned. Muscle bulk is normal in appearance. Left and right foot exam: Surgical scar present Tenderness to palpation along the medial lateral joint line of ankle Full passive range of motion NEUROMUSCULAR: Patient ambulates unassisted Gait is antalgic Sensation to light touch is intact in lower extremities Strength is full in lower extremities No ankle clonus DIAGNOSIS: ICD-10-CM 1. Sciatic nerve pain, left M54.32 CO PRQ IMPLTJ NEUROSTIMULATOR ELTRD PERIPHERAL NRV 2. Right foot pain M79.671 [facility]ASH[facility] - Nando Olivo DPM, Podiatry, [place] 3. Nerve pain M79.2 4. Left foot pain M79.672 5. Sciatic nerve pain, right M54.31 ASSESSMENT: Davina Radford is a 62 y.o.female who presents with chronic bilateral foot pain. To review, patient has had right foot surgery and has been wearing a CAHTO boot at times for her right foot pain. The patient's history and physical examination are consistent with chronic left and right foot pain secondary to left and right sciatic nerve entrapment. She underwent a right and left popliteal (sciatic) nerve block using ultrasound guidance on 10/28/2022 and 12/10/2022 with 70% and 50% improvement in pain and function respectively. Therefore, I will plan for a left then right popliteal (sciatic) nerve peripheral nerve stimulator implant using ultrasound guidance for pain relief and improvement in functionality. Neurologically, it appears the patient has full strength and normal sensation. There is no evidence of myelopathy on examination. There are no red flags in the patient's history. The patient has failed conservative measures including TENS unit, outpatient physical therapy, greater than 3 medications for pain relief, a self-directed therapy program, as well as activity modification all within the last 6 weeks over 3 months. The patient's pain has been causing worsening quality of life and function. PLAN: Medications: For nonopioid therapy, the following medications were prescribed: -Continue gabapentin 300 mg 3 times daily Opioid therapy: -PCP managing Tramadol Interventions: -Plan for left popliteal (sciatic) nerve peripheral nerve stimulator implant using ultrasound guidance. I will then perform the right popliteal (sciatic) nerve peripheral nerve stimulator implant using ultrasound guidance 10 days later -Status post left popliteal (sciatic) nerve block using ultrasound guidance on 12/10/2022 with 50% improvement in pain and function -Status post right popliteal (sciatic) nerve block using ultrasound guidance on 10/28/2022 with 70% improvement in pain and function Imaging: -No new imaging Behavioral Therapies: -Continue daily stretching and home exercise program Referrals: -Podiatric surgery with Dr. Nando Olivo Follow-up Plan: -60 days after implant Patient was offered intervention where appropriate. Multi-modal Pain Therapy: The patient was explicitly considered for multimodal and interdisciplinary therapy. Non-opioid and non-pharmacological opportunities to enhance analgesia and quality of life have been and will continue to be pursued. Fernanda Daniel DO Interventional Pain Management/PM&R [facility] [place] Orders Placed This Encounter [facility] - Nando Olivo DPM, Podiatry, [place] Referral Priority: Routine Referral Type: Eval and Treat Referral Reason: Specialty Services Required Referred to Provider: Nando Olivo DPM Requested Specialty: Podiatry Number of Visits Requested: 1 CO PRQ IMPLTJ NEUROSTIMULATOR ELTRD PERIPHERAL NRV Left popliteal (sciatic) nerve peripheral nerve stimulator implant using ultrasound guidance Plan for right side 10 days later documented in this encounter [employer] [facility] [place] Work Phone: 12-10-2022 Hospital Discharge instructions Marium Charles RN - 12/10/2022 7:39 AM EDT You have received a sedative/anesthetic therefore you should not consume any alcoholic beverages for [address] operate machinery for 24 hours. Do not take a tub bath for 72 hours after procedure (this includes hot tubs). You may shower, but avoid hot water to injection site. Avoid strenuous activity TODAY especially if you experience dizziness. Remove band-aid the next day. Wash off any residual iodine 24 hours from today. Do not use heat, heating pad, or any other heating device over the injection site for 3 days after the procedure. If you experience pain after your procedure, you may continue with your current pain medication as prescribed. (DO NOT INCREASE YOUR PAIN MEDICATION WITHOUT TALKING TO DOCTOR) Soreness and pain at injection site is common, may use ice to reduce soreness. What to expect: You may experience facial flushing, night sweats and irritability. Other common steroid related side effects are increased appetite, mood elevation, insomnia and fluid retention. These effects usually subside in a few days. Steroids used in epidural injections may cause muscle spasms for a few days. If you are diabetic, your blood sugar may be elevated after your procedure due to the steroids. You will need to monitor your blood sugar more closely while going through a series of injections (Check blood sugar at meals and bedtime for 5 days). You may require adjustment in your diabetic medications, contact your PCP office to discuss. Call [facility] at [phone] if you experience: Fever, chills or temperature over 100 Vomiting, headache, persistent stiff neck, nausea or blurred vision Difficulty urinating or unable to urinate within 8 hours Increase in weakness, numbness or loss of function of limbs Increased redness, swelling or drainage at the injection site documented in this encounter [facility] [place] Work Phone: 11-11-2022 History of Present illness Narrative Chronic Pain Clinic Note Encounter Date: 11/11/2022 SUBJECTIVE: Chief complaint: Left foot pain History of Present Illness: Davina Radford is a 62 y.o. female who presents with foot pain Medication Refill: n/a Current Complaints of Pain: Location: both feet,left is worse Radiation: no Severity: moderate Pain Numerical Score - Average: 8/9 Highest: 10+ Lowest: 8 Character/Quality: Complains of pain that is throbbing Timing: Constant Associated symptoms: none Numbness: no Weakness: no Exacerbating factors: walking Alleviating factors: ice, foot baths Length of time pain has been present: Started about 30 years ago, the last 3 years have been the worst Inciting event/injury: no Bowel/Bladder incontinence: no Falls: no Physical Therapy: no History of Interventions: Surgery: 8 Injections: None Imaging: Right foot x-ray 05/14/2022 Impression Extensive postsurgical changes with bridging hardware described above. The patient has collapse of the midfoot with plantar subluxation of the talus in relation of the calcaneus. No change from prior study. There is disorder in the midfoot suggesting Charcot foot. No appreciable interval change from prior exam. Past Medical History: Diagnosis Date Arthritis Depression Past Surgical History: Procedure Laterality Date APPENDECTOMY CARPAL TUNNEL RELEASE Bilateral 2010 SECTION 1979 FOOT SURGERY Right oct 05 2014 GASTRIC BYPASS SURGERY 1998 INNER EAR SURGERY JOINT REPLACEMENT Left 2005 MASTOID SURGERY 1982 Family History Problem Relation Age of Onset Heart Attack Mother Heart Attack Father Breast Cancer Sister 55 Cancer Sister unknown type, passed at 42 Social History Socioeconomic History Marital status: Spouse name: Not on file Number of children: Not on file Years of education: Not on file Highest education level: Not on file Occupational History Not on file Tobacco Use Smoking status: Never Smokeless tobacco: Never Substance and Sexual Activity Alcohol use: No Drug use: No Sexual activity: Not on file Other Topics Concern Not on file Social History Narrative Not on file Social Determinants of Health Financial Resource Strain: Not on file Food Insecurity: Not on file Transportation Needs: Not on file Physical Activity: Not on file Stress: Not on file Social Connections: Not on file Intimate Partner Violence: Not on file Housing Stability: Not on file Medications & Allergies: Current Outpatient Medications Medication Instructions bisoprolol-hydroCHLOROthiazide (ZIAC) 5-6.25 MG per tablet No dose, route, or frequency recorded. buPROPion (WELLBUTRIN XL) 300 mg, Oral, EVERY MORNING busPIRone (BUSPAR) 30 MG tablet No dose, route, or frequency recorded. busPIRone (BUSPAR) 15 mg, Oral, 2 TIMES DAILY Calcium 500-125 MG-UNIT TABS 1 tablet, Oral, 2 TIMES DAILY celecoxib (CELEBREX) 200 MG capsule No dose, route, or frequency recorded. cholestyramine (QUESTRAN) 4 GM/DOSE powder MIX 1 SCOOP IN 8 OUNCES OF LIQUID AND DRINK ONCE DAILY FOR 5 DAYS. cyclobenzaprine (FLEXERIL) 10 MG tablet TAKE 1 TABLET BY MOUTH TWICE DAILY FOR 30 DAYS NEEDED ferrous sulfate (IRON 325) 325 mg, Oral, 2 TIMES DAILY FLUoxetine (PROZAC) 40 mg, Oral, DAILY gabapentin (NEURONTIN) 300 mg, Oral, 3 TIMES DAILY lidocaine (LIDODERM) 5 % No dose, route, or frequency recorded. meloxicam (MOBIC) 15 mg, Oral, DAILY Misc. Devices MISC Please dispense 1 Qagan Tayagungin Boot Length: Lifetime ofloxacin (OCUFLOX) 0.3 % solution INSTILL 10 DROPS INTO AFFECTED EAR ONCE DAILY FOR 7 DAYS omeprazole (PRILOSEC) 20 mg, Oral, DAILY SUMAtriptan (IMITREX) 100 MG tablet No dose, route, or frequency recorded. traMADol (ULTRAM) 50 mg, Oral, EVERY 6 HOURS PRN valACYclovir (VALTREX) 500 MG tablet No dose, route, or frequency recorded. Allergies Allergen Reactions Bactrim [Sulfamethoxazole-Trimethoprim] Pcn [Penicillins] Review of Systems: Constitutional: negative for weight changes or fevers Cardiovascular: negative for chest pain, palpitations, irregular heart beat Respiratory: negative for dyspnea, cough, wheezing Gastrointestinal: negative for constipation, diarrhea, nausea Genitourinary: negative for bowel/bladder incontinence Musculoskeletal: positive for right foot pain Neurological: negative for radicular leg pain, leg weakness or numbness/tingling Behavioral/Psych: negative for anxiety/depression Hematological: negative for abnormal bleeding, anticoagulation use or antiplatelet use All other systems reviewed and are negative OBJECTIVE: Vitals: 11/11/22 1113 BP: (!) 170/99 Pulse: 63 Resp: 20 Temp: 97.3 F (36.3 C) SpO2: 97% PHYSICAL EXAM GENERAL: No acute distress, pleasant, well-appearing HEENT: Normocephalic, atraumatic, Pupils equal and round CARDIOVASCULAR: Well perfused, No peripheral cyanosis PULMONARY: Good chest wall excursion, breathing unlabored PSYCH: Appropriate affect and insight, non-pressured speech SKIN: No rashes or lesions MUSCULOSKELETAL: Inspection: The back and extremities are symmetric and aligned. Muscle bulk is normal in appearance. Left foot exam: Surgical scar present Tenderness to palpation along the medial lateral joint line of ankle Full passive range of motion NEUROMUSCULAR: Patient ambulates unassisted Gait is antalgic Sensation to light touch is intact in lower extremities Strength is full in lower extremities No ankle clonus DIAGNOSIS: ICD-10-CM 1. Sciatic nerve pain, left M54.32 CO INJECTION AA&/STRD SCIATIC NERVE W/IMG GDN 2. Charcot's joint of right foot M14.671 3. Nerve pain M79.2 4. Chronic use of opiate for therapeutic purpose Z79.891 ASSESSMENT: Davina Radford is a 62 y.o.female who presents with chronic bilateral foot pain. To review, patient has had right foot surgery and has been wearing a CAHTO boot at times for her right foot pain. The patient's history and physical examination are consistent with chronic left foot pain secondary to left sciatic nerve entrapment. Therefore, I will plan for a left sciatic nerve (popliteal) nerve block using ultrasound guidance. She reports her right foot is 70% improved after her right popliteal (sciatic) nerve block using ultrasound guidance on 10/28/2022. Neurologically, it appears the patient has full strength and normal sensation. There is no evidence of radiculopathy or myelopathy on examination. There are no red flags in the patient's history. The patient has failed conservative measures including outpatient physical therapy, greater than 3 medications for pain relief, a self-directed therapy program, as well as activity modification all within the last 6 weeks over 3 months. The patient's pain has been causing worsening quality of life and function. At today's visit, patient reports her primary care physician has been managing her tramadol. We will continue with her gabapentin prescribing. PLAN: Medications: For nonopioid therapy, the following medications were prescribed: -Continue gabapentin 300 mg 3 times daily Opioid therapy: -PCP managing Tramadol -Pain Treatment agreement: 07/24/2022 -Urine Drug Screen: 07/24/2022, reviewed and positive for ethyl alcohol -OARRS reviewed and appropriate Interventions: -Plan for left popliteal (sciatic) nerve block using ultrasound guidance -Status post right popliteal (sciatic) nerve block using ultrasound guidance on 10/28/2022 with 70% improvement in pain and function -Consider peripheral nerve stimulator implant in future Imaging: -No new imaging Behavioral Therapies: -Continue daily stretching and home exercise program Referrals: -None Follow-up Plan: -1 month Patient was offered intervention where appropriate. Multi-modal Pain Therapy: The patient was explicitly considered for multimodal and interdisciplinary therapy. Non-opioid and non-pharmacological opportunities to enhance analgesia and quality of life have been and will continue to be pursued. Fernanda Daniel DO Interventional Pain Management/PM&R [facility] Orders Placed This Encounter CO INJECTION AA&/STRD SCIATIC NERVE W/IMG GDN Left sciatic nerve (popliteal) nerve block with ultrasound block documented in this encounter [employer] Work Phone: 10-28-2022 Hospital Discharge instructions Ashlie Arita RN - 10/28/2022 7:45 AM EST Discharge Instructions following Sedation or Anesthesia: You have received a sedative/anesthetic therefore, you should not consume any alcoholic beverages for minimum of [address] operate machinery for 24 hours. Do not sign legal documents for 24 hours. Dizziness, drowsiness, and unsteadiness may occur. Rest when need to. Increase diet as tolerated. Keep up on fluids if diet allows. General Instructions: Do not take a tub bath for 72 hours after procedure (this includes hot tubs and swimming pools). You may shower, but avoid hot water to injection site. Avoid strenuous activity TODAY especially if you experience dizziness. Remove band-aid the next day. Wash off any residual iodine Do not use heat, heating pad, or any other heating device over the injection site for 3 days after the procedure. If you experience pain after your procedure, you may continue with your current pain medication as prescribed. (DO NOT INCREASE YOUR PAIN MEDICATION WITHOUT TALKING TO DOCTOR) Soreness and pain at injection site is common, may use ice to reduce soreness. What To Expect After A Steroid Injection You should start to feel the effects of the steroid injection in about 48-72 hours You may experience facial flushing, night sweats and irritability. Other common steroid related side effects are increased appetite, mood elevation, insomnia and fluid retention. These effects usually subside in a few days. Steroids used in epidural injections may cause muscle spasms for a few days. If you are diabetic, your blood sugar may be elevated after your procedure due to the steroids. You will need to monitor your blood sugar more closely while going through a series of injections (Check blood sugar at meals and bedtime for 5 days). You may require adjustment in your diabetic medications, contact your PCP office to discuss. Call [facility] at [phone] if you experience: Fever, chills or temperature over 100 Vomiting, Headache, persistent stiff neck, nausea, blurred vision Difficulty in urinating or unable to urinate with 8 hours Increase in weakness, numbness or loss of function Increased redness, swelling or drainage at the injection site documented in this encounter [employer] Work Phone: 08-12-2022 History of Present illness Narrative Chronic Pain Clinic Note Encounter Date: 08/12/2022 SUBJECTIVE: Chief complaint: Right foot pain History of Present Illness: Davina Radford is a 61 y.o. female who presents with foot pain Medication Refill: n/a Current Complaints of Pain: Location: both feet, Right is worse Radiation: no Severity: severe Pain Numerical Score - Average: 8/9 Highest: 10+ Lowest: 8 Character/Quality: Complains of pain that is throbbing Timing: Constant Associated symptoms: none Numbness: no Weakness: no Exacerbating factors: walking Alleviating factors: ice, foot baths Length of time pain has been present: Started about 30 years ago, the last 3 years have been the worst Inciting event/injury: no Bowel/Bladder incontinence: no Falls: no Physical Therapy: no History of Interventions: Surgery: 8 Injections: None Imaging: Right foot x-ray 05/14/2022 Impression Extensive postsurgical changes with bridging hardware described above. The patient has collapse of the midfoot with plantar subluxation of the talus in relation of the calcaneus. No change from prior study. There is disorder in the midfoot suggesting Charcot foot. No appreciable interval change from prior exam. Past Medical History: Diagnosis Date Arthritis Depression Past Surgical History: Procedure Laterality Date APPENDECTOMY CARPAL TUNNEL RELEASE Bilateral 2010 SECTION 1979 FOOT SURGERY Right oct 05 2014 GASTRIC BYPASS SURGERY 1998 INNER EAR SURGERY JOINT REPLACEMENT Left 2004 MASTOID SURGERY 1982 Family History Problem Relation Age of Onset Heart Attack Mother Heart Attack Father Breast Cancer Sister 55 Cancer Sister unknown type, passed at 42 Social History Socioeconomic History Marital status: Spouse name: Not on file Number of children: Not on file Years of education: Not on file Highest education level: Not on file Occupational History Not on file Tobacco Use Smoking status: Never Smokeless tobacco: Never Substance and Sexual Activity Alcohol use: No Drug use: No Sexual activity: Not on file Other Topics Concern Not on file Social History Narrative Not on file Social Determinants of Health Financial Resource Strain: Not on file Food Insecurity: Not on file Transportation Needs: Not on file Physical Activity: Not on file Stress: Not on file Social Connections: Not on file Intimate Partner Violence: Not on file Housing Stability: Not on file Medications & Allergies: Current Outpatient Medications Medication Instructions bisoprolol-hydroCHLOROthiazide (ZIAC) 5-6.25 MG per tablet No dose, route, or frequency recorded. buPROPion (WELLBUTRIN XL) 300 mg, Oral, EVERY MORNING busPIRone (BUSPAR) 30 MG tablet No dose, route, or frequency recorded. busPIRone (BUSPAR) 15 mg, Oral, 2 TIMES DAILY Calcium 500-125 MG-UNIT TABS 1 tablet, Oral, 2 TIMES DAILY celecoxib (CELEBREX) 200 MG capsule No dose, route, or frequency recorded. cholestyramine (QUESTRAN) 4 GM/DOSE powder MIX 1 SCOOP IN 8 OUNCES OF LIQUID AND DRINK ONCE DAILY FOR 5 DAYS. cyclobenzaprine (FLEXERIL) 10 MG tablet TAKE 1 TABLET BY MOUTH TWICE DAILY FOR 30 DAYS NEEDED ferrous sulfate (IRON 325) 325 mg, Oral, 2 TIMES DAILY FLUoxetine (PROZAC) 40 mg, Oral, DAILY gabapentin (NEURONTIN) 300 mg, Oral, 3 TIMES DAILY lidocaine (LIDODERM) 5 % No dose, route, or frequency recorded. meloxicam (MOBIC) 15 mg, Oral, DAILY Misc. Devices MISC Please dispense 1 Qagan [place]ungin Boot Length: Lifetime ofloxacin (OCUFLOX) 0.3 % solution INSTILL 10 DROPS INTO AFFECTED EAR ONCE DAILY FOR 7 DAYS omeprazole (PRILOSEC) 20 mg, Oral, DAILY SUMAtriptan (IMITREX) 100 MG tablet No dose, route, or frequency recorded. traMADol (ULTRAM) 50 mg, Oral, EVERY 6 HOURS PRN valACYclovir (VALTREX) 500 MG tablet No dose, route, or frequency recorded. Allergies Allergen Reactions Bactrim [Sulfamethoxazole-Trimethoprim] Pcn [Penicillins] Review of Systems: Constitutional: negative for weight changes or fevers Cardiovascular: negative for chest pain, palpitations, irregular heart beat Respiratory: negative for dyspnea, cough, wheezing Gastrointestinal: negative for constipation, diarrhea, nausea Genitourinary: negative for bowel/bladder incontinence Musculoskeletal: positive for right foot pain Neurological: negative for radicular leg pain, leg weakness or numbness/tingling Behavioral/Psych: negative for anxiety/depression Hematological: negative for abnormal bleeding, anticoagulation use or antiplatelet use All other systems reviewed and are negative OBJECTIVE: Vitals: 08/12/22 0844 BP: (!) 184/113 Pulse: 87 Temp: 97.3 F (36.3 C) SpO2: 98% PHYSICAL EXAM GENERAL: No acute distress, pleasant, well-appearing HEENT: Normocephalic, atraumatic, Pupils equal and round CARDIOVASCULAR: Well perfused, No peripheral cyanosis PULMONARY: Good chest wall excursion, breathing unlabored PSYCH: Appropriate affect and insight, non-pressured speech SKIN: No rashes or lesions MUSCULOSKELETAL: Inspection: The back and extremities are symmetric and aligned. Muscle bulk is normal in appearance. Right foot exam: Surgical scar present Tenderness to palpation along the medial lateral joint line of ankle Full passive range of motion NEUROMUSCULAR: Patient ambulates unassisted Gait is antalgic Sensation to light touch is intact in lower extremities Strength is full in lower extremities No ankle clonus DIAGNOSIS: ICD-10-CM 1. Right foot pain M79.671 2. Charcot's joint of right foot M14.671 3. Nerve pain M79.2 4. Chronic use of opiate for therapeutic purpose Z79.891 ASSESSMENT: Davina Radford is a 61 y.o.female who presents with chronic right foot pain. To review, patient has had right foot surgery and has been wearing a CAHTO boot at times for her right foot pain. The patient's history and physical examination are consistent with chronic right foot pain secondary to Charcot foot and possibly nerve pain. Neurologically, it appears the patient has full strength and normal sensation. There is no evidence of radiculopathy or myelopathy on examination. There are no red flags in the patient's history. The patient has failed conservative measures including outpatient physical therapy, greater than 3 medications for pain relief, a self-directed therapy program, as well as activity modification all within the last 6 weeks over 3 months. The patient's pain has been causing worsening quality of life and function. The patient continues to take opioid medications to improve pain, function and quality of life. The patient denies any side effects from the medications including constipation or respiratory depression. The patient reports adequate analgesia with the medication. There is no evidence of aberrant behavior. I reviewed the urine drug screen results with the patient in the room. She did test positive for ethyl alcohol and admitted to drinking beer and wine occasionally. I discussed with the patient that she cannot be drinking alcohol with opioid medication and if this continues as a trend, we would discontinue her medication. Patient also admits that she does have a medical marijuana card however she did not get it renewed this year. She does admit to using an edible gummy within the last few weeks. Again I reiterated to the patient that she cannot take THC with opioids. PLAN: Medications: For nonopioid therapy, the following medications were prescribed: -Increase gabapentin from 100 mg 3 times daily to 300 mg 3 times daily Opioid therapy: -Continue tramadol 50 mg 3 times daily -Pain Treatment agreement: 07/24/2022 -Urine Drug Screen: 07/24/2022, reviewed and positive for ethyl alcohol -OARRS reviewed and appropriate Interventions: -Plan for right popliteal (sciatic) nerve block using ultrasound guidance with progression to peripheral nerve stimulation Imaging: -No new imaging Behavioral Therapies: -Continue daily stretching and home exercise program Referrals: -None Follow-up Plan: -1 month Patient was offered intervention where appropriate. Multi-modal Pain Therapy: The patient was explicitly considered for multimodal and interdisciplinary therapy. Non-opioid and non-pharmacological opportunities to enhance analgesia and quality of life have been and will continue to be pursued. Opioid Therapy: Education provided to patient regarding short term and long term care phlebotomist implications of opioid medication use. Repeat opioid risk stratification today, discussion regarding functional achievements, safe storage, and optimization of non-opioid interventional, behavioral, and pharmaceutical modalities. Will continue attempt to wean off medication as appropriate. Fernanda Daniel, DO Interventional Pain Management/PM&R [facility] Orders Placed This Encounter gabapentin (NEURONTIN) 300 MG capsule Sig: Take 1 capsule by mouth 3 times daily for 90 days. Dispense: 90 capsule Refill: 2 documented in this encounter [employer] Work Phone: 07-24-2022 History of Present illness Narrative Chronic Pain Clinic Note Encounter Date: 07/24/2022 SUBJECTIVE: Chief complaint: Right foot pain History of Present Illness: Davina Radford is a 61 y.o. female who presents with foot pain Medication Refill: n/a Current Complaints of Pain: Location: both feet, Right is worse Radiation: no Severity: severe Pain Numerical Score - Average: 8/9 Highest: 10+ Lowest: 8 Character/Quality: Complains of pain that is throbbing Timing: Constant Associated symptoms: none Numbness: no Weakness: no Exacerbating factors: walking Alleviating factors: ice, foot baths Length of time pain has been present: Started about 30 years ago, the last 3 years have been the worst Inciting event/injury: no Bowel/Bladder incontinence: no Falls: no Physical Therapy: no History of Interventions: Surgery: 8 Injections: None Imaging: Right foot x-ray 05/14/2022 Impression Extensive postsurgical changes with bridging hardware described above. The patient has collapse of the midfoot with plantar subluxation of the talus in relation of the calcaneus. No change from prior study. There is disorder in the midfoot suggesting Charcot foot. No appreciable interval change from prior exam. Past Medical History: Diagnosis Date Arthritis Depression Past Surgical History: Procedure Laterality Date APPENDECTOMY CARPAL TUNNEL RELEASE Bilateral 2010 SECTION 1979 FOOT SURGERY Right oct 05 2014 GASTRIC BYPASS SURGERY 1998 INNER EAR SURGERY JOINT REPLACEMENT Left 2004 MASTOID SURGERY 1982 Family History Problem Relation Age of Onset Heart Attack Mother Heart Attack Father Breast Cancer Sister 55 Cancer Sister unknown type, passed at 42 Social History Socioeconomic History Marital status: Spouse name: Not on file Number of children: Not on file Years of education: Not on file Highest education level: Not on file Occupational History Not on file Tobacco Use Smoking status: Never Smokeless tobacco: Never Substance and Sexual Activity Alcohol use: No Drug use: No Sexual activity: Not on file Other Topics Concern Not on file Social History Narrative Not on file Social Determinants of Health Financial Resource Strain: Not on file Food Insecurity: Not on file Transportation Needs: Not on file Physical Activity: Not on file Stress: Not on file Social Connections: Not on file Intimate Partner Violence: Not on file Housing Stability: Not on file Medications & Allergies: Current Outpatient Medications Medication Instructions bisoprolol-hydroCHLOROthiazide (ZIAC) 5-6.25 MG per tablet No dose, route, or frequency recorded. buPROPion (WELLBUTRIN XL) 300 mg, Oral, EVERY MORNING busPIRone (BUSPAR) 30 MG tablet No dose, route, or frequency recorded. busPIRone (BUSPAR) 15 mg, Oral, 2 TIMES DAILY Calcium 500-125 MG-UNIT TABS 1 tablet, Oral, 2 TIMES DAILY celecoxib (CELEBREX) 200 MG capsule No dose, route, or frequency recorded. cholestyramine (QUESTRAN) 4 GM/DOSE powder MIX 1 SCOOP IN 8 OUNCES OF LIQUID AND DRINK ONCE DAILY FOR 5 DAYS. cyclobenzaprine (FLEXERIL) 10 MG tablet TAKE 1 TABLET BY MOUTH TWICE DAILY FOR 30 DAYS NEEDED ferrous sulfate (IRON 325) 325 mg, Oral, 2 TIMES DAILY FLUoxetine (PROZAC) 40 mg, Oral, DAILY gabapentin (NEURONTIN) 100 mg, Oral, 3 TIMES DAILY, Intended supply: 30 days lidocaine (LIDODERM) 5 % No dose, route, or frequency recorded. meloxicam (MOBIC) 15 mg, Oral, DAILY Misc. Devices MISC Please dispense 1 Qagan Tayagungin Boot Length: Lifetime ofloxacin (OCUFLOX) 0.3 % solution INSTILL 10 DROPS INTO AFFECTED EAR ONCE DAILY FOR 7 DAYS omeprazole (PRILOSEC) 20 mg, Oral, DAILY SUMAtriptan (IMITREX) 100 MG tablet No dose, route, or frequency recorded. traMADol (ULTRAM) 50 mg, Oral, EVERY 6 HOURS PRN valACYclovir (VALTREX) 500 MG tablet No dose, route, or frequency recorded. Allergies Allergen Reactions Bactrim [Sulfamethoxazole-Trimethoprim] Pcn [Penicillins] Review of Systems: Constitutional: negative for weight changes or fevers Cardiovascular: negative for chest pain, palpitations, irregular heart beat Respiratory: negative for dyspnea, cough, wheezing Gastrointestinal: negative for constipation, diarrhea, nausea Genitourinary: negative for bowel/bladder incontinence Musculoskeletal: positive for right foot pain Neurological: negative for radicular leg pain, leg weakness or numbness/tingling Behavioral/Psych: negative for anxiety/depression Hematological: negative for abnormal bleeding, anticoagulation use or antiplatelet use All other systems reviewed and are negative OBJECTIVE: Vitals: 07/24/22 1000 BP: (!) 165/93 Pulse: 81 Temp: 97.3 F (36.3 C) SpO2: 99% PHYSICAL EXAM GENERAL: No acute distress, pleasant, well-appearing HEENT: Normocephalic, atraumatic, Pupils equal and round CARDIOVASCULAR: Well perfused, No peripheral cyanosis PULMONARY: Good chest wall excursion, breathing unlabored PSYCH: Appropriate affect and insight, non-pressured speech SKIN: No rashes or lesions MUSCULOSKELETAL: Inspection: The back and extremities are symmetric and aligned. Muscle bulk is normal in appearance. Right foot exam: Surgical scar present Tenderness to palpation along the medial lateral joint line of ankle Full passive range of motion NEUROMUSCULAR: Patient ambulates unassisted Gait is antalgic Sensation to light touch is intact in lower extremities Strength is full in lower extremities No ankle clonus DIAGNOSIS: ICD-10-CM 1. Right foot pain M79.671 CO INJECTION AA&/STRD SCIATIC NERVE CO SONO GUIDE NEEDLE BIOPSY 2. Charcot's joint of right foot M14.671 3. Nerve pain M79.2 ASSESSMENT: Davina Radford is a 61 y.o.female who presents with chronic right foot pain. To review, patient has had right foot surgery and has been wearing a CAHTO boot at times for her right foot pain. The patient's history and physical examination are consistent with chronic right foot pain secondary to Charcot foot and possibly nerve pain. Neurologically, it appears the patient has full strength and normal sensation. There is no evidence of radiculopathy or myelopathy on examination. There are no red flags in the patient's history. The patient has failed conservative measures including outpatient physical therapy, greater than 3 medications for pain relief, a self-directed therapy program, as well as activity modification all within the last 6 weeks over 3 months. The patient's pain has been causing worsening quality of life and function. The patient continues to take opioid medications to improve pain, function and quality of life. The patient denies any side effects from the medications including constipation or respiratory depression. The patient reports adequate analgesia with the medication. There is no evidence of aberrant behavior. The patient has been taking tramadol from her primary care physician who wants us to take over prescribing. I will order a urine drug screen at today's visit. Patient reports taking tramadol yesterday. PLAN: Medications: For nonopioid therapy, the following medications were prescribed: -Start gabapentin 100 mg 3 times daily Opioid therapy: -If appropriate urine drug screen, I will take over tramadol 50 mg 3 times daily as needed -Pain Treatment agreement: Signed today 07/24/2022 -Urine Drug Screen: Ordered today 07/24/2022 -OARRS reviewed and appropriate Interventions: -Plan for right popliteal (sciatic) nerve block using ultrasound guidance with progression to peripheral nerve stimulation Imaging: -Reviewed right foot x-ray with patient in room Behavioral Therapies: -Continue daily stretching and home exercise program Referrals: -None Follow-up Plan: -2 weeks Patient was offered intervention where appropriate. Multi-modal Pain Therapy: The patient was explicitly considered for multimodal and interdisciplinary therapy. Non-opioid and non-pharmacological opportunities to enhance analgesia and quality of life have been and will continue to be pursued. Opioid Therapy: Education provided to patient regarding short term and chcf implications of opioid medication use. Repeat opioid risk stratification today, discussion regarding functional achievements, safe storage, and optimization of non-opioid interventional, behavioral, and pharmaceutical modalities. Will continue attempt to wean off medication as appropriate. Fernanda Daniel DO [facility]ventional Pain Management[facility] Orders Placed This Encounter DRUG SCREEN, PAIN Took Tramadol yesterday Standing Status: Standing Number of Occurrences: 1 CO SONO GUIDE NEEDLE BIOPSY CO INJECTION AA&/STRD SCIATIC NERVE gabapentin (NEURONTIN) 100 MG capsule Sig: Take 1 capsule by mouth 3 times daily for 90 days. Intended supply: 30 days Dispense: 90 capsule Refill: 2 documented in this encounter [employer] Phone: Evaluation note Diagnosis Screening breast examination Other screening breast examination documented in this encounter [employer] Phone: evaluation note* Diagnosis Left foot pain Pain in limb Charcot's joint of foot, left documented in this encounter [employer] Phone: evaluation note* Diagnosis Right foot pain- Primary Pain in limb Charcot's joint of right foot Nerve pain Neuralgia, neuritis, and radiculitis, unspecified documented in this encounter [employer] Phone: [email or web address] note* Diagnosis Right foot pain- Primary Pain in limb Charcot's joint of right foot Nerve pain Neuralgia, neuritis, and radiculitis, unspecified Chronic use of opiate for therapeutic purpose documented in this encounter [employer] Phone: evaluation note* Diagnosis Pain management Other specified rehabilitation procedure documented in this encounter [employer] Phone: evaluation note* Diagnosis Sciatic nerve pain, left- Primary Charcot's joint of right foot Nerve pain Neuralgia, neuritis, and radiculitis, unspecified Chronic use of opiate for therapeutic purpose documented in this encounter [employer] Phone: [email or web address] note* Diagnosis Pain management Other specified rehabilitation procedure documented in this encounter [employer] Phone: evaluation note* Diagnosis Sciatic nerve pain, left- Primary Right foot pain Pain in limb Nerve pain Neuralgia, neuritis, and radiculitis, unspecified Left foot pain Pain in limb Sciatic nerve pain, right documented in this encounter [employer] Phone: [email or web address] note* Diagnosis Lesion of right sciatic nerve- Primary Lesion of sciatic nerve Lesion of sciatic nerve, left Left foot pain Pain in limb Right foot pain Pain in limb Charcot's joint of right foot Nerve pain Neuralgia, neuritis, and radiculitis, unspecified documented in this encounter [employer] note* Diagnosis Lesion of right sciatic nerve- Primary Lesion of sciatic nerve Lesion of sciatic nerve, left Left foot pain Pain in limb Right foot pain Pain in limb Charcot's joint of right foot Nerve pain Neuralgia, neuritis, and radiculitis, unspecified documented in this encounter [employer] Summary Purpose Family History No Family History Records FoundNo Family History Records FoundNo Family History Records FoundNo Family History Records Found Advance Directives No Advanced Directives Records FoundDocuments on File Type Date Recorded Patient Morning Babysitter Expl anation Advance Directives and Living Will Power of Administrative Personal Assistant Documents on File Type Date Recorded Patient Morning Babysitter Expl anation ACP-Advance Directive ACP-Power of Administrative Personal Assistant Documents on File Type Date Recorded Patient Morning Babysitter Expl anation ACP-Advance Directive ACP-Power of Administrative Personal Assistant Reason for Referral Status Reason Specialty Diagnoses / Procedures Referre d By Contact Referred To Contact Open Diagnoses Screening mammogram, encounter for Procedures XAVIER DIGITAL SCREEN W CAD BILATERAL Crystal Gallego [address] [address] Crystal Gallego [address] [address] Status Reason Specialty Diagnoses / Procedures Referred By Contact Referred To Contact Pending Review Radiology Diagnoses Breast asymmetry Procedures XAVIER DIGITAL DIAGNOSTIC W OR WO CAD LEFT BeamYaz APRN - [address] [address] Status Reason Specialty Diagnoses / Procedures Referred By Contact Referred To Contact Pending Review Radiology Diagnoses Breast asymmetry Procedures US BREAST LIMITED LEFT US BREAST COMPLETE LEFT BeamYaz APRN - [address] [address] Status Reason Specialty Diagnoses / Procedures Referred By Contact Referred To Contact Not Required - Recondo Radiology Diagnoses Breast asymmetry Procedures XAVIER DIGITAL DIAGNOSTIC W OR WO CAD LEFT BeamYaz APRN - [address] [address] Status Reason Specialty Diagnoses / Procedures Referre d By Contact Referred To Contact Closed Radiology Diagnoses Screening breast examination Procedures XAVIER ISHAAN DIGITAL SCREEN SELF REFERRAL W [place] [address] [address] Specialty Diagnoses / Procedures Referred By Contac t Referred To Contact Radiology Diagnoses Left foot pain Charcot's joint of foot, left Procedures MRI ANKLE LEFT WO CONTRAST Tom Cordon, NERIS [address] [place] [address] Referral ID Status Reason Start Date Expiration Date Visits Re quested Visits Authorized [id number] Closed 05/13/2022 06/27/2022 1 1 Specialty Diagnoses / Procedures Referred By Contac t Referred To Contact Diagnoses Right foot pain Procedures CO INJECTION AA&/STRD SCIATIC NERVE MaríaFernanda johnson, DO [address] [place] [address] Referral ID Status Reason Start Date Expiration Date Visits Re quested Visits Authorized [id number] Open 07/24/2022 07/24/2023 1 1 Specialty Diagnoses / Procedures Referred By Contac t Referred To Contact Diagnoses Sciatic nerve pain, left Procedures CO INJECTION AA&/STRD SCIATIC NERVE W/IMG GDN Rio RanchoFernanda alfaro, DO [address] [place] [address] Referral ID Status Reason Start Date Expiration Date Visits Re quested Visits Authorized [id number] Open 11/11/2022 11/11/2023 1 1 Specialty Diagnoses / Procedures Referred By Contac t Referred To Contact Podiatry Diagnoses Right foot pain María, Fernanda, DO [address] [place] [address] Nando Olivo DPM [address] [address] Referral ID Status Reason Start Date Expiration Date Visits Requested Visits Authorized [id number] Pending Review Specialty Services Required 12/25/2022 06/23/2023 1 1 Scheduling Instructions [facility] Podiatry - Nando Olivo DPM [address] [place] [address] Question Answer Reason For External Referral? Physician Choice My clinical question is: Chronic right and left foot pain. Right foot with charcot right talus and collapse of talonavicular joint. Left foot arthrodesis of 1st TMT joint, severe hallux valgus and hammertoes. Dr. Cordon patient. Comments The patient can be scheduled with any member of the group, including the provider with the first available appointments. Assessments Diagnosis Screening mammogram, encounter for Diagnosis Post-menopausal Asymptomatic postmenopausal status (age-related) (natural) Diagnosis Breast asymmetry Other specified disorders of breast Diagnosis Breast asymmetry Other specified disorders of breast Diagnosis Breast asymmetry Other specified disorders of breast Additional Source Comments INFORMATION SOURCE (unrecogn ized section and content) DATE CREATED AUTHOR 09/07/2018 [facility] DATE CREATED AUTHOR AUTHOR'S ORGANIZ ATION 07/20/2023 [facility] DATE CREATED AUTHOR AUTHOR'S ORGANIZ ATION 11/18/2023 [facility] DATE CREATED AUTHOR AUTHOR'S ORGANIZ ATION 05/22/2024 [facility] EPIC Reason for Visit (unrecogniz ed section and content) Status Reason Specialty Diagnoses / Procedures Referre d By Contact Referred To Contact Open Diagnoses Screening mammogram, encounter for Procedures XAVIER DIGITAL SCREEN W CAD BILATERAL Crystal Gallego APRN - CNM [address] [place] [address] Crystal Gallego APRN - CNM [address] [place] [address] Status Reason Specialty Diagnoses / Procedures Referred By Contact Referred To Contact Pending Review Radiology Diagnoses Post-menopausal Procedures DEXA BONE DENSITY AXIAL SKELETON DEXA Vertebral Fracture Assessment HC DEXA AXIAL SKELETON Crystal Gallego APRN - CNM [address] [place] [address] Status Reason Specialty Diagnoses / Procedures Referre d By Contact Referred To Contact Open Radiology Diagnoses Abnormal mammogram Procedures HC MAMMO DGX UNILATERAL INCL CAD IF PERF Crystal Gallego APRN - CNM [address] [place] [address] [facility] [address] [place] [address] Status Reason Specialty Diagnoses / Procedures Referred By Contact Referred To Contact Pending Review Radiology Diagnoses Abnormal mammogram Procedures HC US BREAST COMP Crystal Gallego, CUSTOMER SERVICE REPRESENTATIVE TEACHER - CNM [address] [facility], [address] [place] [address] [facility] [address] [place] [address] Status Reason Specialty Diagnoses / Procedures Referred By Contact Referred To Contact Not Required - Recondo Radiology Diagnoses Breast asymmetry Procedures XAVIER DIGITAL DIAGNOSTIC W OR WO CAD LEFT Beam, Yaz Smiley CUSTOMER SERVICE REPRESENTATIVE TEACHER - STEAM HOIST OPERATOR [address] [facility] [address] [place] [address] Status Reason Specialty Diagnoses / Procedures Referred By Contact Referred To Contact Pending Review Radiology Diagnoses Breast asymmetry Procedures US BREAST LIMITED LEFT US BREAST COMPLETE LEFT Beam, Yaz Smiley CUSTOMER SERVICE REPRESENTATIVE TEACHER - STEAM HOIST OPERATOR [address] [facility] [address] [place] [address] Status Reason Specialty Diagnoses / Procedures Referre d By Contact Referred To Contact Closed Radiology Diagnoses Screening breast examination Procedures XAVIER ISHAAN DIGITAL SCREEN SELF REFERRAL W [place] [address] [address] Specialty Diagnoses / Procedures Referred By Contac t Referred To Contact Radiology Diagnoses Left foot pain Charcot's joint of foot, left Procedures MRI ANKLE LEFT WO CONTRAST Tom Cordon, DPM [address] [place] [address] Referral ID Status Reason Start Date Expiration Date Visits Re quested Visits Authorized [id number] Closed 05/13/2022 06/27/2022 1 1 Specialty Diagnoses / Procedures Referred By Contac t Referred To Contact Pain Management Diagnoses Charcot ankle, right Right foot pain Tom Cordon, DPM [address] [place] [address] [facility] [address] [place] [address] Referral ID Status Reason Start Date Expiration Date V isits Requested Visits Authorized [id number] Open Specialty Services Required 07/08/2022 07/08/2023 1 1 Reason Comments Foot Pain Specialty Diagnoses / Procedures Referred By Contac t Referred To Contact Physical Medicine and Rehab / Pain Management Diagnoses Pain in right foot Procedures CO INJECTION AA&/STRD OTHER PERIPHERAL NERVE/BRANCH Fernanda Daniel, DO [address] [place] [address] [place] [address] [place] [address] Referral ID Status Reason Start Date Expiration Date Visits Re quested Visits Authorized [id number] Closed 09/16/2022 09/16/2023 1 1 Specialty Diagnoses / Procedures Referred By Contac t Referred To Contact Radiology Diagnoses Pain management Procedures US UNLISTED PROCEDURE DIAG FLUORO FOR SURGICAL PROCEDURES US UNLISTED PROCEDURE DIAG Fernanda Daniel, DO [address] [place] [address] Referral ID Status Reason Start Date Expiration Date V isits Requested Visits Authorized [id number] Pending Review 10/28/2022 10/28/2023 1 1 Reason Comments Foot Pain Right Specialty Diagnoses / Procedures Referred By Contac t Referred To Contact [facility] [address] [place] [address] Referral ID Status Reason Start Date Expiration Date Visits Re quested Visits Authorized [id number] 1 1 Reason Comments Foot Pain Specialty Diagnoses / Procedures Referred By Contac t Referred To Contact Physical Medicine and Rehab / Pain Management Diagnoses Lesion of sciatic nerve, right lower limb Procedures CO PRQ IMPLTJ NEUROSTIMULATOR ELTRD PERIPHERAL NRV Fernanda Daniel, DO [address] [place] [address] Fernanda Daniel, [address] [place] [address] Referral ID Status Reason Start Date Expiration Date V isits Requested Visits Authorized [id number] Not Required - RTA 06/17/2023 08/15/2023 1 1 Care Teams (unrecognized sec tion and content) Change Analyst Relationship Specialty Start Date End Date Pardeep Cordon, DO [address] [place] [address] PCP - General 11/15/14 Change Analyst Relationship Specialty Start Date End Date MarquiselaureenPardeep, DO [address] [place] [address] PCP - General 11/15/14 Change Analyst Relationship Specialty Start Date End Date MarquiselaureenPardeep Yifan, DO [address] [place] [address] PCP - General 11/15/14 Change Analyst Relationship Specialty Start Date End Date MarquiselaureenPardeep Yifan, DO [address] [place] [address] PCP - General 11/15/14 Change Analyst Relationship Specialty Start Date End Date MarquiselaureenPardeep Yifan, DO [address] [place] [address] PCP - General 11/15/14 Change Analyst Relationship Specialty Start Date End Date Bravo Pardeep Yifan, DO [address] [place] [address] PCP - General 11/15/14 Change Analyst Relationship Specialty Start Date End Date Braov Pardeep Yifan, DO [address] [place] [address] PCP - General 11/15/14 Change Analyst Relationship Specialty Start Date End Date Pardeep Cordon, DO [address] [place] [address] PCP - General 11/15/14 Change Analyst Relationship Specialty Start Date End Date Pardeep Cordon, DO [address] [place] [address] PCP - General 11/15/14 Change Analyst Relationship Specialty Start Date End Date Pardeep Cordon, DO [address] [place] [address] PCP - General 11/15/14 Change Analyst Relationship Specialty Start Date End Date Pardeep Cordon, DO [address] [place] [address] PCP - General 11/15/14 Change Analyst Relationship Specialty Start Date End Date Pardeep Cordon DO PCP - General 11/15/14 Change Analyst Relationship Specialty Start Date End Date Pardeep Cordon DO PCP - General 11/15/14 Change Analyst Relationship Specialty Start Date End Date Pardeep Cordon DO PCP - General 11/15/14 Change Analyst Relationship Specialty Start Date End Date Pardeep Cordon DO PCP - General 11/15/14 Ordered Prescriptions (unrec ognized section and content) Prescription Sig Dispensed Refills Start Date End Da te gabapentin (NEURONTIN) 100 MG capsule Take 1 capsule by mouth 3 times daily for 90 days. Intended supply: 30 days 90 capsule 2 07/24/2022 10/22/2022 Prescription Sig Dispensed Refills Start Date End Da te gabapentin (NEURONTIN) 300 MG capsule Take 1 capsule by mouth 3 times daily for 90 days. 90 capsule 2 08/12/2022 2022 FOR RECORDS PERTAINING TO PATIENTS WHO ARE OR HAVE BEEN ENROLLED IN A CHEMICAL DEPENDENCY/SUBSTANCEABUSE PROGRAM, SOME INFORMATION MAY BE OMITTED. This clinical summary was aggregated from multiple sources. Caution should be exercised in using it in the provision of clinical care. This summary normalizes information from multiple sources, and as a consequence, information in this document may materially change the coding, format and clinical context of patient data. In addition, data may be omitted in some cases. CLINICAL DECISIONS SHOULD BE BASED ON THE PRIMARY CLINICAL RECORDS. [employer] provides no warranty or guarantee of the accuracy or completeness of information in this document.
== END 2024-06-29 09:44 | disposition home or self-care (01) ==
LOC: EC 09:43
PROVIDERS: Visit Provider Podiatrist Foot & Ankle Surgery
DX: M25.572 Pain in left ankle and joints of left foot (principal); M25.571 Pain in right ankle and joints of right foot; M21.42 Flat foot [pes planus] (acquired), left foot; M21.41 Flat foot [pes planus] (acquired), right foot
CPT/HCPCS: 73610; 73630

== ENCOUNTER 2025-03-22 13:41 | Outpatient (OUT) | payer MEDICARE, SELFPAY ==
--- OUTSIDE RECORDS SUMMARY | 2025-03-22 13:48 | XMS_ITS | Clinical Summary ---
Author Organization [employer] tem Address [id number] [address] [place] [address] Care Team Providers Care Registered Radiologic Technologist Name Role Phone Isaac Jamey Saha DO Primary Care Provider [phone] Allergies Active Allergy Reactions Criticality Noted Date Comments Penicillin 06/07/2016 Sulfamethoxazole-Trimethoprim Hives 2015 Medications buPROPion XL (WELLBUTRIN XL) 300 mg 24 hr tablet Take 300 mg by mouth daily. Active busPIRone (BUSPAR) 15 mg tablet Take 15 mg by mouth daily. Active calcium carbonate-vitam in D3 500 mg(1,250mg) -125 unit per tablet Take 1 tablet by mouth 2 (two) times a day. Active ferrous sulfate 325 (65 FE) mg tablet Take 325 mg by mouth daily with breakfast. Active FLUoxetine (PROzac) 20 mg capsule Take 20 mg by mouth 2 (two) times a day. Active lansoprazole (PREVACID) 30 mg capsule Take 30 mg by mouth daily. 1 to 2 capsules Active naproxen (NAPROSYN) 500 mg tablet Take 500 mg by mouth daily. Active ciprofloxacin HCl (CIPRO) 500 mg tablet TAKE ONE TABLET BY MOUTH EVERY 12 HOURS FOR 10 DAYS 0 06/25/2018 Active lidocaine (LIDODERM) 5 % APPLY ONE PATCH DAILY 5 08/03/2018 Active loratadine (CLARITIN) 10 mg tablet Take 10 mg by mouth daily. 2 05/27/2018 Active SUMAtriptan (IMITREX) 100 mg tablet 08/08/2018 Active traMADol (ULTRAM) 50 mg tablet Take 50 mg by mouth 3 (three) times a day. 1 07/22/2018 Active Active Problems Problem Noted Date Diagnosed Date History of total knee arthroplasty 07/31/2016 Family History Medical History Relation Name Comments Arthritis Father Depression Father Heart disease Father Arthritis Mother Heart disease Mother Ovarian cancer Sister 1 Breast cancer Sister 2 Relation Name Status Comments Father Mother Sister 1 Sister 2 Social History Tobacco Use Types Packs/Day Years Used Date Smoking Tobacco: Never Smokeless Tobacco: Never Alcohol Use Standard Drinks/Week Comments Yes 0 (1 standard drink = 0.6 oz pur e alcohol) rare use of wine Childcare Answer Date Recorded Childcare Unknown 03/10/2019 Employment Answer Date Recorded Employment Unknown 03/10/2019 Purpose - Life Answer Date Recorded Purpose and direction in life Unknown Comments No Sex and Gender Information Value Date Recorded Sex Assigned at Not on file Legal Sex Female 11:30 AM EDT Gender Identity Not on file Sexual Orientation Not on file Last Filed Vital Signs Vital Sign Reading Time Taken Comments Blood Pressure 150/79 08/10/2018 9:59 AM EST Pulse 63 08/10/2018 9:59 AM EST Temperature 36.7 C (98.1 F) 08/10/2018 9:59 AM EST Respiratory Rate 18 08/10/2018 9:59 AM EST Oxygen Saturation 100% 08/10/2018 9:59 AM EST Inhaled Oxygen Concentration - - Weight 95.3 kg (210 lb) 08/21/2018 9:25 AM EST Height 172.7 cm (5' 8 ) 08/21/2018 9:25 AM EST Body Mass Index 31.93 08/21/2018 9:25 AM EST Plan of Treatment Health Maintenance Due Date Last Done Comments Depression Screening 1973 Tobacco Screening 1973 Adult BMI Screening 1979 DTaP,Tdap and Td Vaccines (1 - Tdap) 1980 Pap Smear 1982 Zoster (Shingles) Vaccine (1 of 2) 2011 Influenza Vaccine 05/30/2025 [employer] Not on file [place] [address] [email or web address] Care Teams Registered Radiologic Technologist Relationship Specialty Start Date End Date Jamey Gray DO PCP - General 10/14/12
--- OUTSIDE RECORDS SUMMARY | 2025-03-22 13:48 | XMS_ITS | Encounter Summary ---
Author Organization [employer] [facility] tem Address [id number] [address] [place] [address] Care Team Providers Care Director Of Income Tax Name Role Phone Jamey Gray DO Primary Care Provider [phone] Encounter Details Date Type Department Care Team (Late st Contact Info) Description 12/16/2018 Telephone [facility] [address] [place] [address] Jo Ann Barney Social History Tobacco Use Types Packs/Day Years Used Date Smoking Tobacco: Never Smokeless Tobacco: Never Alcohol Use Standard Drinks/Week Comments Yes 0 (1 standard drink = 0.6 oz pur e alcohol) rare use of wine Comments No Sex and Gender Information Value Date Recorded Sex Assigned at Not on file Legal Sex Female 11:30 AM EDT Gender Identity Not on file Sexual Orientation Not on file documented as of this encounter Plan of Treatment Not on file documented as of this encounter Visit Diagnoses Not on filedocumented in this encounter Additional Health Concerns Assessment Noted Time A Body Mass Index follow-up plan has been documented for the patient 07/30/2017 9:45 PM EDT documented as of this encounter Care Teams Director Of Income Tax Relationship Specialty Start Date End Date Jamey Gray DO PCP - General 10/14/12 documented as of this encounter
--- OUTSIDE RECORDS SUMMARY | 2025-03-22 13:49 | XMS_ITS | Encounter Summary ---
Author Organization [facility] Address [address] [place] [address] Care Team Providers Care Clamp Truck Driver Name Role Phone Jamey Gray DO Unavailable [phone] Jamey Gray DO Unavailable [phone] Jamey Gray DO Unavailable [phone] Moses Keith MD Primary Care Provider Moses Keith MD Unavailable [phone] Encounter Details Date Type Department Care Team (Late st Contact Info) Description 08/26/2023 Abstract [facility] [address] [place] [address] Janet Matute MA Social History Tobacco Use Types Packs/Day Years Used Date Smoking Tobacco: Never Smokeless Tobacco: Never Alcohol Use Standard Drinks/Week Comments Yes 1 (1 standard drink = 0.6 oz pure alcohol) caffeine intake: 2-3 cups per day PHQ-2 Answer Date Recorded Patient Health Questionnaire-2 Score 2 07/14/2023 Comments Unknown Sex and Gender Information Value Date Recorded Sex Assigned at Female 05/13/2024 8:41 AM EDT Legal Sex Female 8:08 PM EDT Gender Identity Female 05/13/2024 8:41 AM EDT Sexual Orientation Not on file documented as of this encounter Plan of Treatment Upcoming Encounters Date Type Department Care Team (Late st Contact Info) Description 05/24/2025 10:00 AM EDT Office Visit [facility] [address] [place] [address] [place] [address] [place] [address] documented as of this encounter Goals Goal Patient Goal Type Associated Problems Recent Progress Patient-Stated? Author Help patient manage antidepressant medication Care Plan Patient on antidepressant monitoring plan Gaviota Power MA Baseline PHQ-9 Care Plan Baseline PHQ-9 Gaviota Power MA documented as of this encounter Visit Diagnoses Not on filedocumented in this encounter Additional Health Concerns Active Problems Noted Date Diagnosed Date Patient on antidepressant monitoring plan 2022 Baseline PHQ-9 07/14/2023 documented as of this encounter Care Teams Clamp Truck Driver Relationship Specialty Start Date End Date Jamey Gray DO PCP - [facility] 12/28/22 4 Jamey Gray DO PCP - [facility] 06/29/23 09/28/24 Jamey Gray DO PCP - Hina HOOKS 09/29/24 12/27/24 [place] [address] [address] [facility] [address] [place] [address] PCP - General Family Medicine 12/21/24 [place] [address] [place] [address] PCP - Hina HOOKS 12/28/24 documented as of this encounter
--- OUTSIDE RECORDS SUMMARY | 2025-03-22 13:49 | XMS_ITS | Encounter Summary ---
Author Organization [facility] Address [address] [place] [address] Care Team Providers Care Shoe Ironer Name Role Phone Jamey Gray DO Unavailable [phone] Jamey Gray DO Unavailable [phone] Moses Keith MD Primary Care Provider [phone] Moses Keith MD Unavailable [phone] Encounter Details Date Type Department Care Team (Late st Contact Info) Description 05/28/2024 Abstract [facility] [address] [place] [address] Janet Matute MA Social History Tobacco Use Types Packs/Day Years Used Date Smoking Tobacco: Never Smokeless Tobacco: Never Alcohol Use Standard Drinks/Week Comments Yes 1 (1 standard drink = 0.6 oz pure alcohol) caffeine intake: 2-3 cups per day PHQ-2 Answer Date Recorded Patient Health Questionnaire-2 Score 0 05/20/2024 Comments Unknown Sex and Gender Information Value Date Recorded Sex Assigned at Female 05/13/2024 8:41 AM EDT Legal Sex Female 8:08 PM EDT Gender Identity Female 05/13/2024 8:41 AM EDT Sexual Orientation Not on file documented as of this encounter Plan of Treatment Upcoming Encounters Date Type Department Care Team (Late Contact Info) Description 05/24/2025 10:00 AM EDT Office Visit [facility] [address] [address] [place] [address] [address] documented as of this encounter Goals Goal [...] antidepressant monitoring plan 2022 Baseline PHQ-9 07/14/2023 Assessment Noted Time PHQ-9 Depression Total Score: 0 05/20/20 24 12:00 PM EDT documented as of this encounter Care Teams Shoe Ironer Relationship Specialty Start Date End Date Jamey Gray DO PCP - [facility] 06/29/23 09/28/24 Jamey Gray DO PCP - [facility] HOOKS 09/29/24 12/27/24 [place] [address] [address] PCP - General Family Medicine 12/21/24 [place] [address] [address] PCP - Hina HOOKS 12/28/24 documented as of this encounter
--- OUTSIDE RECORDS SUMMARY | 2025-03-22 13:49 | XMS_ITS | Encounter Summary ---
Author Organization [facility] Address [address] [place] [address] Care Team Providers Care Orthopedic Surgeon Name Role Phone Moses Keith MD Primary Care Provider [phone] Moses Keith MD Unavailable [phone] Encounter Details Date Type Department Care Team (Late st Contact Info) Description 03/15/2025 Telephone [facility] [address] [place] [phone] Janet Matute MA Social History Tobacco Use Types Packs/Day Years Used Date Smoking Tobacco: Never Smokeless Tobacco: Never Alcohol Use Standard Drinks/Week Comments Yes 1 (1 standard drink = 0.6 oz pure alcohol) caffeine intake: 2-3 cups per day PHQ-2 Answer Date Recorded Patient Health Questionnaire-2 Score 0 02/15/2025 Comments Unknown Sex and Gender Information Value Date Recorded Sex Assigned at Female 05/13/2024 8:41 AM EDT Legal Sex Female 8:08 PM EDT Gender Identity Female 05/13/2024 8:41 AM EDT Sexual Orientation Not on file documented as of this encounter Miscellaneous Notes * Telephone Encounter - Moses Keith MD - 03/15/2025 2:10 PM EDT Please make sure that she is wearing her boot for her Charcot joint. She can try prednisone 12 day taper, recommend that she sees us or if she sees a furnace operator and gets a follow up appointment if this does not work * Telephone Encounter - Janet Matute MA - 03/15/2025 12:39 PM EDT Hi, this is Marcial Radford and I was just in there recently and talked to Dr. Mckinney 1 time about my foot.He was wondering about that, I was telling him and and now I am having a lot of swelling in it and I was wondering if he could call me in an order of cortisone to help the swelling in there so I can get around a little bit better if you need any more information. Give me a call back. My phone number is [phone]. Thank you. Done documented in this encounter Plan of Treatment Upcoming Encounters Date Type Department Care Team (Late st Contact Info) Description 05/24/2025 10:00 AM EDT Office Visit [facility] [address] [place] [phone] [place] [address] [place] [phone] documented as of this encounter Goals Goal Patient Goal Type Associated Problems Recent Progress Patient-Stated? Author Help patient manage antidepressant medication Care Plan Patient on antidepressant monitoring plan No Gaviota Kwon MA Baseline PHQ-9 Care Plan Baseline PHQ-9 Gaviota Power MA documented as of this encounter Visit Diagnoses Diagnosis Edema, unspecified type documented in this encounter Additional Health Concerns Active Problems Noted Date Diagnosed Date Patient on antidepressant monitoring plan 2022 Baseline PHQ-9 07/14/2023 Assessment Noted Time PHQ-9 Depression Total Score: 0 05/20/20 24 12:00 PM EDT documented as of this encounter Care Teams Orthopedic Surgeon Relationship Specialty [place] [address] [place] [id number] PCP - General Family Medicine 12/21/24 [place] [address] [place] [address] PCP - Hina HOOKS 12/28/24 documented as of this encounter
--- OUTSIDE RECORDS SUMMARY | 2025-03-22 13:49 | XMS_ITS | Encounter Summary ---
Author Organization [facility] Address [address] [place] [address] Care Team Providers Care Antenna Installer Name Role Phone Jamey Gray DO Unavailable [phone] Jamey Gray DO Unavailable [phone] Jamey Gray DO Unavailable [phone] Moses Keith MD Primary Care Provider [phone] Moses Keith MD Unavailable [phone] Encounter Details Date Type Department Care Team (Late st Contact Info) Description 12/04/2023 Abstract [facility] [address] [place] [phone] Janet Matute MA Social History Tobacco Use Types Packs/Day Years Used Date Smoking Tobacco: Never Smokeless Tobacco: Never Alcohol Use Standard Drinks/Week Comments Yes 1 (1 standard drink = 0.6 oz pure alcohol) caffeine intake: 2-3 cups per day PHQ-2 Answer Date Recorded Patient Health Questionnaire-2 Score 0 09/16/2023 Comments Unknown Sex and Gender Information Value [...] AM EDT Office Visit [facility] [address] [place] [phone] [place] [address] [place] [address] documented as of this encounter Goals Goal [...] documented as of this encounter Care Teams Antenna Installer Relationship Specialty Start Date End Date Jamey Gray DO PCP - [facility] 12/28/22 4 Jamey Gray DO PCP - [facility] 06/29/23 09/28/24 Jamey Gray DO PCP - Hina HOOKS 09/29/24 12/27/24 [place] [address] [address] [facility] [address] [place] [address] PCP - General Family Medicine 12/21/24 [place] [address] [place] [address] PCP - Hina HOOKS 12/28/24 documented as of this encounter
--- OUTSIDE RECORDS SUMMARY | 2025-03-22 13:49 | XMS_ITS | Encounter Summary ---
Author Organization [facility] Address [address] [place] [address] Care Team Providers Care Adult Basic Education Manager Name Role Phone Moses Keith MD Primary Care Provider [phone] Encounter Details Date Type Department Care Team (Late st Contact Info) Description 05/14/2022 Transcribe Orders [facility] Admitting [address] [place] [address] Tri Irby, DO [address] [phone] Social History Tobacco Use Types Packs/Day Years Used Date Smoking Tobacco: Never Smokeless Tobacco: Never Alcohol Use Standard Drinks/Week Comments No 0 (1 standard drink = 0.6 oz pur e alcohol) PHQ-2 Answer Date Recorded PHQ-2 Score 0 06/30/2019 Comments No Sex and Gender Information Value Date Recorded Sex Assigned at Not on file Legal Sex Female 7:30 PM EST Gender Identity Not on file Sexual Orientation Not on file COVID-19 Exposure Response Date Recorded In the last 10 days, have yo u been in contact with someone who was confirmed or suspected to have Coronavirus/COVID-19? No / Unsure 05/13/2022 1:55 PM EDT documented as of this encounter Plan of Treatment Not on file documented as of this encounter Visit Diagnoses Not on filedocumented in this encounter Care Teams Adult Basic Education Manager Relationship Specialty [place] [address] [place] [address] PCP - General Family Medicine 12/10/24 documented as of this encounter
--- OUTSIDE RECORDS SUMMARY | 2025-03-22 13:49 | XMS_ITS | Clinical Summary ---
Author Organization [facility] Address [address] [place] [address] Care Team Providers Care Chemical Mixer Name Role Phone Moses Keith MD Primary Care Provider [phone] Moses Keith MD Unavailable [phone] Allergies Active Allergy Reactions Criticality Noted Date Comments Penicillins 03/11/2023 Sulfa Antibiotics 03/11/2023 Medications Calcium Carbonate-Vitami n D 500-3.125 MG-MCG tablet Take 1 tablet by mouth in the morning and 1 tablet before bedtime. Active cyclobenzaprine (Flexeril) 10 MG tablet Take 10 mg by mouth in the morning and 10 mg in the evening and 10 mg before bedtime. 2 Active ferrous sulfate 325 (65 Fe) MG tablet Take 325 mg by mouth every 12 (twelve) hours. Active lidocaine (Lidoderm) 5 % patchIndications :Chronic pain disorder APPLY 1 PATCH EXTERNALLY ONCE DAILY 30 patch 3 4 Active diclofenac sodium (Voltaren) 1 % gelIndications:C hronic pain of both feet Apply 2 g topically in the morning and 2 g in the evening and 2 g before bedtime. 350 g 1 4 Active omeprazole (PriLOSEC) [address] capsuleIndicatio ns:Gastroesophag eal reflux disease without esophagitis TAKE 1 TO 2 CAPSULES BY MOUTH ONCE DAILY 180 capsule 1 4 Active meloxicam (Mobic) 15 MG tabletIndication s:Osteoarthritis of ankle or foot, unspecified laterality,Major depressive disorder with single episode, in remission TAKE 1 TABLET IN THE MORNING 90 tablet 1 4 Active fluticasone (Flonase) 50 MCG/ACT nasal sprayIndications :Medication refill Administer 1 spray into each nostril Daily Shake gently. Before first use, prime pump. After use, clean tip and replace cap. 16 g 2 4 Active valACYclovir (Valtrex) 500 MG tabletIndication s:Medication refill Take 1 tablet (500 mg) by mouth Daily 30 tablet 5 5 10/12/19 26 Active celecoxib (CeleBREX) 200 MG capsuleIndicatio ns:Primary osteoarthritis, unspecified ankle and foot,Osteoarthri tis of ankle or foot, unspecified laterality Take 1 capsule (200 mg) by mouth in the morning and 1 capsule (200 mg) before bedtime. 180 capsule 2 5 Active busPIRone (Buspar) 30 MG tabletIndication s:Anxiety,Osteoa rthritis of ankle or foot, unspecified laterality,Major depressive disorder with single episode, in remission TAKE 1/2 TABLET IN THE MORNING AND BEFORE BEDTIME 90 tablet 2 5 Active pantoprazole (ProtoNix) 20 MG EC tabletIndication s:Medication refill Take 1 tablet (20 mg) by mouth in the morning. Take before meals. Do not crush, chew, or split.. 90 tablet 2 5 Active buPROPion XL (Wellbutrin XL) 300 MG 24 hr tabletIndication s:Anxiety Take 1 tablet (300 mg) by mouth in the morning. Do not crush, chew, or split.. 90 tablet 2 5 Active Naltrexone HCl, Pain, (Naltrex) 4.5 MG capsuleIndicatio ns:Morbid (severe) obesity due to excess calories (CMS-HCC) Take 4.5 mg by mouth in the morning and 4.5 mg before bedtime. 60 capsule 3 5 Active naltrexone (Depade) 50 MG tabletIndication s:Morbid (severe) obesity due to excess calories (CMS-HCC) Take 1 tablet (50 mg) by mouth Daily 30 tablet 5 5 12/23/19 26 Active bisoprolol-hydro CHLOROthiazide (Ziac) 5-6.25 MG tabletIndication s:Essential hypertension Take 1 tablet by mouth Daily 90 tablet 1 5 12/25/19 26 Active SUMAtriptan (Imitrex) 100 MG tabletIndication s:Medication refill Take 1 tablet (100 mg) by mouth 1 (one) time if needed for migraine 27 tablet 1 5 Active FLUoxetine (PROzac) 40 MG capsuleIndicatio ns:Major depressive disorder with single episode, in remission Take 1 capsule (40 mg) by mouth in the morning and 1 capsule (40 mg) before bedtime. 180 capsule 5 Active predniSONE (Deltasone) 10 MG tabletIndication s:Edema, unspecified type 6 TABS every day X 3 DAYS, 4 TABS every day X 3 DAYS, 2 TABS every day X 3 DAYS, 1 TAB every day X 3 DAYS 39 tablet 5 Active clindamycin (Cleocin) 300 MG capsuleIndicatio ns:Non-recurrent acute serous otitis media of left ear,Acute non-recurrent pansinusitis Take 1 capsule (300 mg) by mouth in the morning and 1 capsule (300 mg) in the evening and 1 capsule (300 mg) before bedtime. Do all this for 7 days. 21 capsule 5 02/23/20 25 azithromycin (Zithromax) 250 MG tabletIndication s:Non-recurrent acute suppurative otitis media of right ear without spontaneous rupture of tympanic membrane,Acute non-recurrent pansinusitis Take 2 tabs (500 mg) by mouth today, than 1 daily for 4 days. 6 tablet 5 02/24/20 25 ciprofloxacin (Cipro) 500 MG tabletIndication s:Non-recurrent acute suppurative otitis media of right ear without spontaneous rupture of tympanic membrane Take 1 tablet (500 mg) by mouth in the morning and 1 tablet (500 mg) before bedtime. Do all this for 7 days. 14 tablet 5 02/26/20 25 Active Problems Problem Noted Date Diagnosed Date Abnormal mammogram 05/20/2024 Anxiety 05/20/2024 Anxiety with depression 05/20/2024 Arthritis 05/20/2024 Chronic otitis media 05/20/2024 Episodic tension-type headache, not intractable 05/20/2024 Chronic fatigue syndrome 05/20/2024 Fatigue 05/20/2024 Lymphedema, not elsewhere classified 05/20/2024 Major depressive disorder, single episode, unspe cified 05/20/2024 Memory deficit 05/20/2024 Primary osteoarthritis of right hip 05/20/2024 Recurrent major depressive disorder, in partial remission 05/20/2024 Sinusitis chronic, frontal 05/20/2024 Spondylosis of lumbar region without myelopathy or radiculopathy 05/20/2024 Charcot's joint 05/20/2024 Mildly obese 05/20/2024 Secondary osteoarthritis, right ankle and foot 0 05/20/2024 Lesion of right sciatic nerve 05/19/2023 Lesion of sciatic nerve, left 05/19/2023 Osteoarthritis of ankle or foot 03/11/2023 Hypothyroid 03/11/2023 Morbidly obese 03/11/2023 Well adult exam 03/11/2023 Vitamin D deficiency 03/11/2023 Left foot pain 12/25/2022 Sciatic nerve pain, left 11/11/2022 Chronic use of opiate for therapeutic purpose Charcot's joint of right foot 07/24/2022 Nerve pain 07/24/2022 Right foot pain 07/24/2022 Essential hypertension 07/22/2018 Chronic pain disorder 12/09/2017 History of total knee arthroplasty 07/31/2016 Encounters Date Type Department Care Team Description 03/15/2025 Telephone [facility] [address] [place] [id number] Janet Matute MA 02/18/2025 Orders Only [facility] [address] [place] [address] Ange Ballard MA Non-recurrent acute suppurative otitis media of right ear without spontaneous rupture of tympanic membrane 02/18/2025 Telephone [facility] [address] [place] [address] Ange Ballard MA 02/18/2025 Telephone [facility] [address] [place] [address] Moses Keith MD 02/15/2025 12:00 PM EDT Office Visit [facility] [address] [facility] [place] [address] More Meadows NP Non-recurrent acute suppurative otitis media of right ear without spontaneous rupture of tympanic membrane (Primary Dx); Non-recurrent acute serous otitis media of left ear; Bilateral hearing loss, unspecified hearing loss type; Acute non-recurrent pansinusitis 02/15/2025 Bamboo flowsheet [facility] [address] [place] [address], [place] [address] More Meadows NP 02/15/2025 Travel 02/11/2025 Telephone [facility] [address] [place] [address] Ange Ballard MA 01/24/2025 Telephone [facility] [address] [place] [address] Janet Matute MA 12/28/2024 Clinisync Result Encounter [facility] External Department Unsolicited Moses Keith MD 12/28/2024 Clinisync Result Encounter [facility] External Department Unsolicited Moses Keith MD 12/24/2024 Refill [facility] [address] [place] [address] Maddy Starks LPN Essential hypertension 12/22/2024 Orders Only [facility] [address] [place] [address] Maria Victoria Sewell MA Morbid (severe) obesity due to excess calories ([facility]) 12/22/2024 Telephone [facility] [address] [place] [address] Maria Victoria Sewell MA 12/21/2024 11:20 AM EDT Office Visit [facility] [address] [address] Moses Keith MD Colon cancer screening (Primary Dx); Morbid (severe) obesity due to excess calories (CMS-HCC); Primary osteoarthritis, unspecified ankle and foot; Body mass index (BMI) 35.0-35.9, adult; Macrocytosis; Iron deficiency; Chronic right shoulder pain; Tendinopathy of right rotator cuff; Essential hypertension ; Charcot's joint of left foot; Anxiety; Screen for colon cancer; Osteoarthritis of ankle or foot, unspecified laterality; Major depressive disorder with single episode, in remission ; Medication refill 12/21/2024 Orders Only [facility] [address] [place] [address] Maria Victoria Sewell MA Morbid (severe) obesity due to excess calories (CMS-HCC) 12/21/2024 Bamboo flowsheet [facility] [address] [place] [address] Moses Keith MD 12/21/2024 Travel from Last 3 Months Immunizations Immunization Administration Dates Next Due Influenza, Injectable, MDCK, preservative free 1 Influenza, injectable, MDCK, preservative free, quadrivalent 06/18/2019,06/18/2018 Influenza, injectable, quadrivalent, preservativ e free 07/03/2022,07/03/2021 Influenza, recombinant, quad rivalent, injectable, preservative free 07/21/2023,06/23/2020 Tdap 07/21/2023 Zoster, Recombinant 07/12/2021,05/08/2021 Family History Medical History Relation Name Comments Heart disease Father Heart disease Mother Cancer Sister 2 sisters decea sed due to cancer Relation Name Status Comments Brother 1 brother Father Mother Sister 3 sisters Son Alive 1 son Social History Tobacco Use Types Packs/Day Years Used Date Smoking Tobacco: Never Smokeless Tobacco: Never Tobacco Cessation:Counseling Given: Not Answered Alcohol Use Standard Drinks/Week Comments Yes 1 [...] AM EDT Sexual Orientation Not on file Last Filed Vital Signs Vital Sign Reading Time Taken Comments Blood Pressure 132/74 02/15/2025 11:50 AM EDT Pulse 68 02/15/2025 11:50 AM EDT Temperature 36.3 C (97.4 F) 02/15/2025 11:50 AM EDT Respiratory Rate 18 12/21/2024 11:20 AM EDT Oxygen Saturation 99% 02/15/2025 11:50 AM EDT Inhaled Oxygen Concentration - - Weight 106 kg (234 lb) 02/15/2025 11:50 AM EDT Height 172.7 cm (5' 8 ) 02/15/2025 11:50 AM EDT Body Mass Index 35.58 02/15/2025 11:50 AM EDT Plan of Treatment Upcoming Encounters Date Type Department Care Team (Late st Contact Info) Description 05/24/2025 10:00 AM EDT Office Visit [facility] [address] [place] [address] [place] [address] [place] [address] Health Maintenance Due Date Last Done Comments CT Colonography 1961 Colonoscopy 1961 Colorectal Cancer Screening 1961 FIT-DNA 1961 FIT 1961 FOBT 1961 Sigmoidoscopy 1961 Pap Smear 06/30/2022 06/30/2019, 06/30/2019 Cervical Cancer Screening 06/30/2024 HPV/Cotest 06/30/2024 06/30/2019, 06/30/2019 Medicare Annual Wellness (AWV) 05/20/2025 0 05/20/2024, 03/11/2023, 08/14/2022, Additional history exists Mammogram 12/10/2025 12/10/2024, 11/27, 08/20/2023, Additional history exists Influenza Vaccine Completed 07/03/2024, , 07/03/2022, Additional history exists Goals Goal Patient Goal Type Associated Problems Recent Progress Patient-Stated? Author Help patient manage antidepressant medication Care Plan Patient on antidepressant monitoring plan Gaviota Power MA Baseline PHQ-9 Care Plan Baseline PHQ-9 Gaviota Power MA Procedures Procedure Name Priority Date/Time Associated Diagnosis Comments XR SHOULDER RIGHT (MIN 2 VIEWS) 12/28/2024 1:12 PM EDT DEXA BONE DENSITY AXIAL SKELETON 12/28/2024 1:02 PM EDT VITAMIN B12 Routine 12/21/2024 12:06 PM EDT Morbid (severe) obesity due to excess calories ([facility]) Macrocytosis Iron deficiency IRON, TOTAL Routine 12/21/2024 12:06 PM EDT Morbid (severe) obesity due to excess calories ([facility]) Macrocytosis Iron deficiency BI MAMMOGRAM SCREENING TOMOSYNTHESIS BILATERAL Routine 08/20/2022 12:00 PM EST from Last 3 Months or Most Recently Relevant to Health Maintenance Results * XR SHOULDER RIGHT (MIN 2 VIEWS) (12/28/2024 1:12 PM EDT) Anatomical Region Laterality Modality Other 12/28/2024 1:12 PM EDT Narrative 12/28/2024 1:17 PM EDT EXAMINATION: 3 XRAY VIEWS OF THE RIGHT SHOULDER 12/27/2024 10:17 am COMPARISON: None. HISTORY: ORDERING SYSTEM PROVIDED HISTORY: Chronic right shoulder pain TECHNOLOGIST PROVIDED HISTORY: Reason for Exam: right shoulder pain x6 months FINDINGS: The bone mineralization is within normal limits. The joint spaces appear unremarkable. No acute fractures or dislocations are seen. There is no soft tissue swelling. No bony erosions are seen. IMPRESSION: No acute abnormality involving the right shoulder. Interpreted by: Vipul López MD Signed by: Vipul López MD 12/28/24 Final result Procedure Note Radiology, Radiologist, - 12/28/2024 EXAMINATION: 3 XRAY VIEWS OF THE RIGHT SHOULDER 12/27/2024 10:17 am COMPARISON: None. HISTORY: ORDERING SYSTEM PROVIDED HISTORY: Chronic right shoulder pain TECHNOLOGIST PROVIDED HISTORY: Reason for Exam: right shoulder pain x6 months FINDINGS: The bone mineralization is within normal limits. The joint spacesappear unremarkable. No acute fractures or dislocations are seen. There is nosoft tissue swelling. No bony erosions are seen. IMPRESSION: No acute abnormality involving the right shoulder. Interpreted by: Vipul López MD Signed by: Vipul López MD 12/28/24 Final result us Moses Keith MD [facility] Final Result * DEXA BONE DENSITY AXIAL SKELETON (12/28/2024 1:02 PM EDT) Anatomical Region Laterality Modality Other 12/28/2024 1:02 PM EDT Narrative 12/28/2024 1:06 PM EDT EXAMINATION: BONE DENSITOMETRY 12/27/2024 9:48 am TECHNIQUE: A bone density dual x-ray absorptiometry (DXA) scan was performed of the lumbar spine and left hip on a [employer] system. COMPARISON: 08/23/2019. HISTORY: ORDERING SYSTEM PROVIDED HISTORY: Post-menopausal Gender: F Age: 64 y/o FINDINGS: LUMBAR SPINE: L1-L2 BMD: 1.096 g/cm2 T-score: -0.6 Z-score: -0.4 LEFT TOTAL HIP: BMD: 0.908 g/cm2 T-score: -0.8 Z-score: -0.5 LEFT FEMORAL NECK: BMD: 0.862 g/cm2 T-score: -1.3 Z-score: -0.7 There has been no statistically significant change in the bone mineral density of the femoral neck since the prior exam date listed above. FRAX 10-YEAR PROBABILITY OF FRACTURE: 10-year fracture risk is performed using the [employer] FRAX calculator based on patient-reported risk factors. Major osteoporotic fracture: 7.5% Hip fracture: 0.6% Other situations known to alter the reliability of the FRAX score should be considered when making treatment decisions, including chronic glucocorticoid use and past treatments. Further guidance on treatment can be found at the National Osteoporosis Foundation's website bonesource.org. IMPRESSION: Osteopenia by WHO criteria. RECOMMENDATIONS: 1. All patients should optimize their calcium and vitamin D intake. 2. Consider FDA-approved medical therapies in postmenopausal women and men aged 50 years and older, based on the following: - A hip or vertebral (clinical or morphometric) fracture - T-score less than or equal to -2.5 at the femoral neck or spine after appropriate evaluation to exclude secondary causes - Low bone density (T-score between -1.0 and -2.5 at the femoral neck or spine) and a 10-year probability of a hip fracture greater than or equal to 3% or a 10-year probability of a major osteoporosis-related fracture greater than or equal to 20% based on FRAX calculation. - Clinician judgment and/or patient preferences may indicate treatment for people with 10-year fracture probabilities above or below these levels - Further guidance on treatment can be found at the National Osteoporosis Foundation's website bonesource.org. 3. Patients with diagnosis of osteoporosis or at high risk for fracture should have regular bone mineral density tests. For patients eligible for Medicare, routine testing is allowed once every 2 years. The testing frequency can be increased to one year for patients who have rapidly progressing disease, those who are receiving or discontinuing medical therapy to restore bone mass or have additional risk factors. Template code: [id number] Interpreted by: Huy Driver MD Signed by: Huy Driver MD 12/28/24 Final result Procedure Note Radiology, Radiologist, - 12/28/2024 EXAMINATION: BONE DENSITOMETRY 12/27/2024 9:48 am TECHNIQUE: A bone density dual x-ray absorptiometry (DXA) scan was performed of the lumbar spine and left hip on a [employer] system. COMPARISON: 08/23/2019. HISTORY: ORDERING SYSTEM PROVIDED HISTORY: Post-menopausal Gender: F Age: 64 y/o FINDINGS: LUMBAR SPINE: L1-L2 BMD: 1.096 g/cm2 T-score: -0.6 Z-score: -0.4 LEFT TOTAL HIP: BMD: 0.908 g/cm2 T-score: -0.8 Z-score: -0.5 LEFT FEMORAL NECK: BMD: 0.862 g/cm2 T-score: -1.3 Z-score: -0.7 There has been no statistically significant change in the bone mineral density of the femoral neck since the prior exam date listed above. FRAX 10-YEAR PROBABILITY OF FRACTURE: 10-year fracture risk is performed using the [employer]RA[employer] calculator based on patient-reported risk factors. Major osteoporotic fracture: 7.5% Hip fracture: 0.6% Other situations known to alter the reliability of the FRAX score shouldbe considered when making treatment decisions, including chronicglucocorticoid use and past treatments. Further guidance on treatment can be found atthe National Osteoporosis Foundation's website bonesource.org. IMPRESSION: Osteopenia by WHO criteria. RECOMMENDATIONS: 1. All patients should optimize their calcium and vitamin D intake. 2. Consider FDA-approved medical therapies in postmenopausal women andmen aged 50 years and older, based on the following: - A hip or vertebral (clinical or morphometric) fracture - T-score less than or equal to -2.5 at the femoral neck or spine after appropriate evaluation to exclude secondary causes - Low bone density (T-score between -1.0 and -2.5 at the femoral neck or spine) and a 10-year probability of a hip fracture greater than or equalto 3% or a 10-year probability of a major osteoporosis-related fracturegreater than or equal to 20% based on FRAX calculation. - Clinician judgment and/or patient preferences may indicate treatmentfor people with 10-year fracture probabilities above or below these levels - Further guidance on treatment can be found at the NationalOsteoporosis Foundation's website bonesource.org. 3. Patients with diagnosis of osteoporosis or at high risk for fracture should have regular bone mineral density tests. For patients eligiblefor Medicare, routine testing is allowed once every 2 years. The testing frequency can be increased to one year for patients who have rapidly progressing disease, those who are receiving or discontinuing medicaltherapy to restore bone mass or have additional risk factors. Template code: [id number] Interpreted by: Huy Driver MD Signed by: Huy Driver MD 12/28/24 Final result Moses Keith MD [facility] Final Result * Iron (12/21/2024 12:06 PM EDT) IRON, TOTAL 79 45 - 160 mcg/dL [facility] Blood Venous blood specimen / Unknown 12/21/2024 12:06 PM EDT 12/21/2024 12:07 PM EDT Narrative [facility] - 12/22/2024 8:22 AM EDT FASTING:NO FASTING: NO Resulting Agency Comment Performing Organization Information Site ID: [id number] Name: [facility] Address: [address] [place] [address], [address] [place] [address] Director: Jhonatan Canales MD us Moses Keith MD LAB BLOOD ORDERABLES Final Res ult Performing Organization Address [facility] de Phone Number [facility] * Vitamin B12 (12/21/2024 12:06 PM EDT) VITAMIN B12 413 200 - 1,100 pg/mL [facility] Blood Venous blood specimen / Unknown 12/21/2024 12:06 PM EDT 12/21/2024 12:07 PM EDT Narrative [facility] - 12/22/2024 8:22 AM EDT FASTING:NO FASTING: NO Resulting Agency Comment Performing Organization Information Site ID: [id number] Name: [facility] Address: [address] [place] [address], [address] [place] [address] Director: Jhonatan Canales MD Moses Keith MD LAB BLOOD ORDERABLES Final Res ult Performing Organization Address [facility] de Phone Number [facility] * Bilateral screening mammogram with tomosynthesis (08/20/2022 12:00 PM EST) Anatomical Region Laterality Modality Breast Bilateral Mammography Narrative 08/20/2022 12:00 PM EST PERFORMED AT [facility] LOCATION:[id number] Procedure Note CONVERSION, GENERIC - 04/04/2023 PERFORMED AT [facility] LOCATION:[id number] us Jamey Gray DO IMG BI PROCEDURES Final Result from Last 3 Months or Most Recently Relevant to Health Maintenance Additional Health Concerns Active Problems Noted Date Diagnosed Date Patient on antidepressant monitoring plan 2022 Baseline PHQ-9 07/14/2023 Insurance [employer] Care Teams Chemical Mixer Relationship Specialty [place] [address] [place] [address] PCP - General Family Medicine 12/21/24 [place] [address] [place] [address] PCP - Hina HOOKS 12/28/24
--- OUTSIDE RECORDS SUMMARY | 2025-03-22 13:49 | XMS_ITS | Encounter Summary ---
Author Organization [facility] Address [address] [place] [address] Care Team Providers Care Superannuation Funds Manager Name Role Phone Jamey Gray DO Unavailable Jamey Gray DO Unavailable [phone] Moses Keith MD Primary Care Provider [phone] Moses Keith MD Unavailable [phone] Encounter Details Date Type Department Care Team (Late st Contact Info) Description 07/15/2024 Abstract [facility] [address] [place] [address] Janet Matute MA Social History Tobacco Use [...] 05/24/2025 10:00 AM EDT Office Visit [facility] [address] [address] [place] [address] [address] documented as of this encounter Goals Goal [...] documented as of this encounter Care Teams Superannuation Funds Manager Relationship Specialty Start Date End Date Jamey Gray DO PCP - [facility] 06/29/23 09/28/24 Jamey Gray DO PCP - Hina HOOKS 09/29/24 12/27/24 [place] [address] [address] PCP - General Family Medicine 12/21/24 [place] [address] [address] PCP - Hina HOOKS 12/28/24 documented as of this encounter
--- NOTE | 2025-03-22 13:50 | XR_ITS ---
[facility] [place] [id number] Patient Name: LUÍS GERMAIN MRN: [id number] date: 1960 Sex: F Assigned Patient Location: [facility] Current Patient Location: [facility] Accession/Order Number: [id number] Exam Date: 03/22/2025 15:13 Report Date: 03/22/2025 15:15 At the request of: DEWAYNE RIVERA DPAlberto Procedure: XR foot WILLI min 3V XR foot WILLI min 3V 03/22/2025 2:17 PM SIGNS AND SYMPTOMS: Chronic bilateral foot pain, Charcot foot PROTOCOL: Frontal, lateral, and oblique radiographs of the bilateral feet COMPARISON: 06/29/2024 FINDINGS: There is collapse of the arch of the foot bilaterally with severe degenerative changes at the junction of the hindfoot and midfoot consistent with Charcot foot bilaterally. There is hardware fixation of the first tarsometatarsal junction on the left and the first and third tarsometatarsal junctions on the right similar to the prior exam without hardware complication or change in alignment. There is diffuse osteopenia. There is screw fixation along the head of the first and second metatarsal on the right. There is narrowing of the first metatarsophalangeal joint space bilaterally, left greater than right. XR/XR foot WILLI min 3V IMPRESSION: Similar Charcot foot pathology is noted bilaterally without change in alignment. Similar hardware fixation across the tarsometatarsal junctions and laterally without hardware complication. Impression dictated by: Jamey Simpson M.D. 03/22/2025 3:15 PM Dictation Location: [email or web address] Electronically authenticated by: [id number] Y Date: 03/22/2025 15:15
--- OUTSIDE RECORDS SUMMARY | 2025-03-22 13:50 | XMS_ITS | Encounter Summary ---
Author Organization [facility] Address [address] [place] [address] Care Team Providers Care Cemetery Counselor Name Role Phone Jamey Gray DO Unavailable [phone] Jamey Gray DO Unavailable [phone] Moses Keith MD Primary Care Provider [phone] Moses Keith MD Unavailable [phone] Encounter Details Date Type Department Care Team (Late st Contact Info) Description 04/21/2024 Abstract [facility] [address] [place] [address] Jamey Gray, DO Social History Tobacco Use Types Packs/Day Years [...] AM EDT Office Visit [facility] [address] [place] [phone] [place] [address] [place] [address] documented as of this encounter Goals Goal [...] documented as of this encounter Care Teams Cemetery Counselor Relationship Specialty Start Date End Date Jamey Gray DO PCP - [facility] 06/29/23 09/28/24 Jamey Gray DO PCP - Hina HOOKS 09/29/24 12/27/24 [place] [address] [address] PCP - General Family Medicine 12/21/24 [place] [address] [address] PCP - Hina HOOKS 12/28/24 documented as of this encounter
--- OUTSIDE RECORDS SUMMARY | 2025-03-22 13:50 | XMS_ITS | Encounter Summary ---
Author Organization [facility] Address [address] [place] [address] Care Team Providers Care Retail Associate Name Role Phone Jamey Gray DO Unavailable [phone] Jamey Gray DO Unavailable [phone] Moses Keith MD Primary Care Provider [phone] Moses Keith MD Unavailable [phone] Encounter Details Date Type Department Care Team (Late st Contact Info) Description 02/19/2024 Orders Only [facility] [address] [place] [address] Janet Matute MA Swelling Social History Tobacco Use Types Packs/Day Years [...] AM EDT Office Visit [facility] [address] [address] [place] [address] [address] documented as of this encounter Goals Goal Patient Goal Type Associated Problems Recent Progress Patient-Stated? Author Help patient manage antidepressant medication Care Plan Patient on antidepressant monitoring plan No Gaviota Kwon MA Baseline PHQ-9 Care Plan Baseline PHQ-9 Gaviota Power MA documented as of this encounter Visit Diagnoses Diagnosis Swelling Localized superficial swelling, mass, or lump documented in this encounter Additional Health Concerns Active Problems Noted Date Diagnosed Date Patient on antidepressant monitoring plan 2022 Baseline PHQ-9 07/14/2023 documented as of this encounter Care Teams Retail Associate Relationship Specialty Start Date End Date Jamey Gray DO PCP - [employer]oted 06/29/23 09/28/24 Jamey Gray DO PCP - Hina HOOKS 09/29/24 12/27/24 [place] [address] [address] PCP - General Family Medicine 12/21/24 [place] [address] [address] PCP - Hina HOOKS 12/28/24 documented as of this encounter
--- OUTSIDE RECORDS SUMMARY | 2025-03-22 13:50 | XMS_ITS | Encounter Summary ---
Author Organization [facility] Address [address] [place] [address] Care Team Providers Care Seat Trimmer Name Role Phone Jamey Gray DO Unavailable [phone] Jamey Gray DO Unavailable [phone] Moses Keith MD Primary Care Provider [phone] Moses Keith MD Unavailable [phone] Encounter Details Date Type Department Care Team (Late st Contact Info) Description 04/27/2024 Abstract [facility] [address] [place] [address] Jamey Gray, DO Social History Tobacco Use [...] AM EDT Office Visit [facility] [address] [place] [phone] [place] [address] [place] [address] documented as of this encounter Goals Goal [...] documented as of this encounter Care Teams Seat Trimmer Relationship Specialty Start Date End Date Jamey Gray DO PCP - [employer]oted 06/29/23 09/28/24 Jamey Gray DO PCP - Hina HOOKS 09/29/24 12/27/24 [place] [address] [address] PCP - General Family Medicine 12/21/24 [place] [address] [address] PCP - Hina HOOKS 12/28/24 documented as of this encounter
== END 2025-03-22 13:42 | disposition home or self-care (01) ==
LOC: RAD 13:46
PROVIDERS: Visit Provider Podiatrist Foot & Ankle Surgery
DX: M79.672 Pain in left foot (principal); M79.671 Pain in right foot; A52.16 Charcot's arthropathy (tabetic)
CPT/HCPCS: 73630

== ENCOUNTER 2025-05-09 09:25 | Emergency (ER) | payer MEDICARE, SELFPAY ==
--- OUTSIDE RECORDS SUMMARY | 2024-04-27 07:30 | XMS_ITS ---
Author Organization [facility] [place] Address [address] [place] [address] Care Team Providers Care Lightning Rod Installer Name Role Phone Jamey Gray DO Primary Care Provider Delroy Dee Unavailable [phone] Allergies Allergen (clinical drug ingredient) Drug/Non Drug Allergy documented on EMR Reaction Allergy Type Onset Date Status Substance with penicillin structure and antibacterial mechanism of action (substance) Penicillins (uncoded) Unknown Allergy Active Bactrim TABS Unknown Drug Allergy Acti ve Reason For Referral Reason evaluation and treat ment -- lymphedema Diagnosis 1 Charcot ankle, left (M14.672) Diagnosis 2 Lymphedema, not else where classified (I89.0) Referral Organization [facility] (PODIATRY) Referring Provider First Name Delroy Referring Provider Last Name Tr Referring Provider Speciality Podiatry Referred Provider Destin SULTANA Referred Provider Specialty Occupational Therapy General Notes Asael Vasquez 10/2023 10:11:09 AM >ON HOLD per patient request Referral Priority Routine REASON FOR VISIT CT follow up, done 7.29.24 Medications Medication SIG (Take, Route, Frequency, Duration) Notes Start Date End Date Status Custom Molded Shoe Insert -- as directed Daily for 365 days MEDICALLY NECESSARY 2 EACH ACCOMADATVIE INSERTS 01/13/2023 Active Fluoxetine 20 MG 2 capsules Orally Daily Active Meloxicam 15 MG 1 tablet Orally Daily Active Four Wheeled Walker with Seat as directed Daily for 365 days MEDICALLY NECESSARY 01/13/2023 Active Four Wheeled Walker with Seat as directed Daily for 90 days DX: M14.672 08/06/2023 Active Calcium Active Custom Molded Inserts -- as directed -- daily for 365 days L3400 Additional diagnosis : M20.12- M20.11 - M20.42 - M20.41 -M14.671 - M14.672 02/27/2023 Active Ziac 2.5-6.25 MG 1 tablet Orally Once a day Not-Taking BuSpar 15 MG 1 tablet Orally BID Active buPROPion HCl 150 MG 2 tablets Orally Daily Active valACYclovir HCl 500 MG 1 tablet Orally Once Not-Taking Ofloxacin 0.3 % 10 drops into affected ear Otic Daily Not-Taking Omeprazole 20 MG 1 capsule 30 minutes before morning meal Orally Daily Not-Taking Misc. Devices - as directed daily for 365 days L3216 Additional diagnosis : M20.12- M20.11 - M20.42 - M20.41 -M14.671 - M14.672 02/27/2023 Not-Taking Misc. Devices - as directed Daily for 365 days ANDREAFSKI WALKER LT FT MEDICALLY NECESSAY dx M14.672 07/18/2023 Not-Taking Misc. Devices - as directed Daily for 365 days Medically Necessary Tayco Braces M14.671 M14..672 bilateral feet 01/13/2023 Not-Taking Misc. Devices - as directed Daily for 365 days Medically necessary CUSTOM SHOES 01/13/2023 Not-Taking Imitrex Not-Taking Lidoderm 5 % 1 patch remove after 12 hours Externally Once a day Not-Taking Gabapentin 300 MG 1 capsule Orally Daily Not-Taking Cyclobenzaprine HCl 10 MG 1 tablet Orally Once a day Not-Taking Ferrous Sulfate 325 MG 1 tablet Orally Once a day Not-Taking traMADol HCl 50 MG 1 tablet as needed Orally Daily Active Social History Tobacco Use: Social History Observation Description Date Details (start date - stop date) Never Smoker NA - NA Tobacco Use/Smoking Question Answer Notes Patient is a nonsmoker Problems Problem Type SNOMED Code ICD Code Onset Dates Problem Status W/U Status Risk Notes Problem [id number] Lymphedema, not elsewhere classified (I89.0) Active confirmed Vital Signs Heart Rate 78 /min 04/27/2024 Height 68 in 04/27/2024 Oximetry 97 % 04/27/2024 Encounters Encounter Location Date Provider Diagnosis [facility] (PODIATRY) [address] [place] [address] [place] [address] 04/27/2024 Delroy Armando Charcot ankle, left M14.672 ; Other dislocation of left foot, sequela S93.335S ; Idiopathic neuropathy G60.9 and Lymphedema, not elsewhere classified I89.0 Assessments Encounter Date Diagnosis (ICD Code) Assessment Notes Treatment Notes Treatment Clinical Notes Section Notes 04/27/2024 Charcot ankle, left (ICD-10 - M14.672) Patient was seen and evaluated. Patient has had her [place] boot adjusted by the prosthetists and is feeling much better. I had a long discussion with her regarding the potential risks and benefits of reconstruction relating that she has a limb threatening deformity which is very complicated and at high risk for nonunion/infectio n. Given that she is feeling better with a [place] boot and is does not have a history of infection or ulceration she will consider her options going forward but I strongly emphasized that she is to call the office if any change in her skin or alignment changes or she has any concerns whatsoever otherwise we will follow-up in 2 to 3 months with weightbearing foot and ankle x-rays 04/27/2024 Other dislocation of left foot, sequela (ICD-10 - S93.335S) 04/27/2024 Idiopathic neuropathy (ICD-10 - G60.9) 04/27/2024 Lymphedema, not elsewhere classified (ICD-10 - I89.0) Patient also relates to chronic swelling worse on her left leg than her right which only mildly responds to compression stockings. I provided referral to PT/OT for lymphedema management with wraps/pumps as needed as well as massage. This also be beneficial especially if the patient requires surgical intervention 04/27/2024 Other Patient also inquired about a prescription for a motorized wheelchair/scoote r which I believe would be very beneficial to the patient as she has bilateral Charcot and is a high fall risk. This would help gain independence and perform activities of daily living while minimizing the chance of fall or injury. She will inquire from a local medical supply company regarding if she needs a prescription and if it needs to come from her primary care or from myself. She will call the office with any further information as I would be happy to provide her with any assistance in gaining insurance approval for this much-needed device Plan Of Treatment Treatment Notes Assessment Notes Charcot ankle, left Patient was seen and evaluated. Patient has had her [place] boot adjusted by the prosthetists and is feeling much better. I had a long discussion with her regarding the potential risks and benefits of reconstruction relating that she has a limb threatening deformity which is very complicated and at high risk for nonunion/infection. Given that she is feeling better with a [place] boot and is does not have a history of infection or ulceration she will consider her options going forward but I strongly emphasized that she is to call the office if any change in her skin or alignment changes or she has any concerns whatsoever otherwise we will follow-up in 2 to 3 months with weightbearing foot and ankle x-rays Lymphedema, not elsewhere classified Pat ient also relates to chronic swelling worse on her left leg than her right which only mildly responds to compression stockings. I provided referral to PT/OT for lymphedema management with wraps/pumps as needed as well as massage. This also be beneficial especially if the patient requires surgical intervention Other Patient also inquire d about a prescription for a motorized wheelchair/scooter which I believe would be very beneficial to the patient as she has bilateral Charcot and is a high fall risk. This would help gain independence and perform activities of daily living while minimizing the chance of fall or injury. She will inquire from a local medical supply company regarding if she needs a prescription and if it needs to come from her primary care or from myself. She will call the office with any further information as I would be happy to provide her with any assistance in gaining insurance approval for this much-needed device Referrals Referral Date Details 04/27/2024 04/27/2024, evaluati on and treatment -- lymphedema, Occupational Therapy [facility] Progress Notes * Davina GERMAIN LDOB:1960 ( 63 yo F)Acc No.[id number]:04/27/2024 Follow Up Patient: Davina MOMIN Provider: Shiraz Armando DPM, MS :1960 A ge:63 Y S ex:Female Date:04/27/2024 Address:[facility] [place] [place], [facility] Pcp:Jamey Gray, DO Check In:11:36 AM ESTCheck O ut:12:08 PM EST Subjective: * Chief Complaints: * C T follow up, done 04.26.24 * HPI: G eneral: Patient here for follow up and CT review which was completed this AM at [facility]. States overall she is doing a little better since she got her ANDREAFSKI boot adjusted. States that added foam and she is able to get calf strap tighter so things are fitting better. * ROS: G eneral/Constitutional: Chills d enies. F ever d enies. W eight gain?denies. W eight loss d enies. S kin: Skin Ulcers d enies. S kin lesion(s) d enies. ? C ardiovascular: Difficulty breathing on exertion d enies. L eg cramps?denies. E megan d enies. C hest pain d enies. R espiratory: Difficulty breathing d enies. D yspnea d enies.?Cough d enies. G astrointestinal: Diarrhea d enies. N ausea d enies. V omiting?denies. M usculoskeletal: Bone/Joint Symptoms d enies. C senior care Pain d enies.?Leg cramps d enies. N eurologic: Numbness d enies. T ingling d enies . G ait abnormality d enies. ? H ematology: Anemia D enies. E asy bruising d enies. ? A ll Other Systems: Review of Systems (ROS) S ee HPI for details,All others negative except those mentioned in HPI. * Active Problem List M79.672 Pain in left foot Modified On:01/20/2023/U Status:confirmed M79.671 Pain in right foot Modified On:01/20/2023/U Status:confirmed M25.571 Pain in right ankle and joints of right foot Modified On:02/27/2023/U Status:confirmed M25.572 Pain in left ankle a nd joints of left foot Modified On:02/27/2023/U Status:confirmed M21.072 Valgus deformity, no t elsewhere classified, left ankle Modified On:02/27/2023/U Status:confirmed M21.071 Valgus deformity, no t elsewhere classified, right ankle Modified On:02/27/2023 Status:confirmed S93.04XA Closed dislocation o f right talus, initial encounter Modified On:02/27/2023 Status:confirmed S93.02XA Subluxation of left ankle joint, initial encounter Modified On:02/27/2023 Status:confirmed M20.12 Hallux valgus (acqui red), left foot Modified On:02/27/2023 Status:confirmed M20.11 Hallux valgus (acqui red), right foot Modified On:02/27/2023 Status:confirmed M20.42 Other hammer toe(s) (acquired), left foot Modified On:02/27/2023 Status:confirmed M20.41 Other hammer toe(s) (acquired), right foot Modified On:02/27/2023 Status:confirmed M72.2 Plantar fascial fibr omatosis Modified On:07/31/2023 Status:confirmed S93.335A Other dislocation of left foot, initial encounter Modified On:12/16/2023 Status:confirmed M14.672 Charcot's joint, lef t ankle and foot Modified On:12/23/2023 Status:confirmed G60.9 Hereditary and idiop athic neuropathy, unspecified Modified On:04/21/2024 Status:confirmed M14.671 Charcot's joint, rig ht ankle and foot Modified On:04/21/2024 Status:confirmed I89.0 Lymphedema, not else where classified Modified On:04/27/2024 Status:confirmed * Medical History: * Surgical History: t onsils knee replacement CTS bilateral feet ---bunion gastric bypass Right midfoot fusion at [facility] 10/07/2014 * Hospitalization/Major Diagno stic Procedure: [facility] * Family History: F ather: , diagnosed with Diabetes mellitus without mention of complication, type II or unspecified type, not stated as uncontrolled, Unspecified essential hypertension. M other: , diagnosed with Diabetes mellitus without mention of complication, type II or unspecified type, not stated as uncontrolled, Unspecified essential hypertension. Cary doss(s): alive. S ister(s): alive. S on(s): . M igrated Family History:: Sororal history of Breast Cancer (V16.3);. 1 brother(s) , 3 sister(s) . 1 son(s) . . * Social History: T obacco Use: T obacco Use/Smoking P james is a n onsmoker * Medications: T akingbuPROPion HCl 150 MG Tablet Extended Release 2 tablets Orally Daily BuSpar 15 MG Tablet 1 tablet Orally BID Calcium Custom Molded Inserts -- -- as directed -- daily , Notes to Pharmacist: L3400 Additional diagnosis : M20.12- M20.11 - M20.42 - M20.41 -M14.671 - M14.672Custom Molded Shoe Insert -- -- as directed Daily , Notes to Pharmacist: MEDICALLY NECESSARY 2 EACH ACCOMADATVIE INSERTSFluoxetine 20 MG Capsule 2 capsules Orally Daily Four Wheeled Walker with Seat as directed Daily , Notes to Pharmacist: MEDICALLY NECESSARYFour Wheeled Walker with Seat as directed Daily , Notes to Pharmacist: DX: M14.2Meloxicam 15 MG Tablet 1 tablet Orally Daily traMADol HCl 50 MG Tablet 1 tablet as needed Orally Daily Taking buPROPion HCl 150 MG Tablet Extended Release 2 tablets Orally Daily Taking BuSpar 15 MG Tablet 1 tablet Orally BID Taking Calcium Taking Custom Molded Inserts -- -- as directed -- daily , Notes to Pharmacist: L3400 Additional diagnosis : M20.12- M20.11 - M20.42 - M20.41 - M14.671 - M14.672Taking Custom Molded Shoe Insert -- -- as directed Daily , Notes to Pharmacist: MEDICALLY NECESSARY 2 EACH ACCOMADATVIE INSERTSTaking Fluoxetine 20 MG Capsule 2 capsules Orally Daily Taking Four Wheeled Walker with Seat as directed Daily , Notes to Pharmacist: MEDICALLY NECESSARYTaking Four Wheeled Walker with Seat as directed Daily , Notes to Pharmacist: DX: M14.672Taking Meloxicam 15 MG Tablet 1 tablet Orally Daily Taking traMADol HCl 50 MG Tablet 1 tablet as needed Orally Daily Not-Taking/PRNCyclobenzaprine HCl 10 MG Tablet 1 tablet Orally Once a day Ferrous Sulfate 325 MG Capsule 1 tablet Orally Once a day Gabapentin 300 MG Capsule 1 capsule Orally Daily Imitrex Lidoderm(Lidocaine) 5 % Patch 1 patch remove after 12 hours Externally Once a day Misc. Devices - Miscellaneous as directed Daily , Notes to Pharmacist: Medically Necessary Tayco Braces M14.671 M14..672 bilateral feetMisc. Devices - Miscellaneous as directed Daily , Notes to Pharmacist: Medically necessary CUSTOM SHOESMisc. Devices - Miscellaneous as directed daily , Notes to Pharmacist: L3216 Additional diagnosis : M20.12- M20.11 - M20.42 - M20.41 -M14.671 - M14.672Misc. Devices - Miscellaneous as directed Daily , Notes to Pharmacist: [facility] MEDICALLY NECESSAY dx M14.2Ofloxacin 0.3 % Solution 10 drops into affected ear Otic Daily Omeprazole 20 MG Capsule Delayed Release 1 capsule 30 minutes before morning meal Orally Daily valACYclovir HCl 500 MG Tablet 1 tablet Orally Once Ziac 2.5- 6.25 MG Tablet 1 tablet Orally Once a day Medication List reviewed and reconciled with the patientNot-Taking/PRN Cyclobenzaprine HCl 10 MG Tablet 1 tablet Orally Once a day Not-Taking/PRN Ferrous Sulfate 325 MG Capsule 1 tablet Orally Once a day Not-Taking/PRN Gabapentin 300 MG Capsule 1 capsule Orally Daily Not-Taking/PRN Imitrex Not-Taking/PRN Lidoderm(Lidocaine) 5 % Patch 1 patch remove after 12 hours Externally Once a day Not-Taking/PRN Misc. Devices - Miscellaneous as directed Daily , Notes to Pharmacist: Medically Necessary Tayco Braces M14.671 M14..672 bilateral feetNot-Taking/PRN Misc. Devices - Miscellaneous as directed Daily , Notes to Pharmacist: Medically necessary CUSTOM SHOESNot-Taking/PRN Misc. Devices - Miscellaneous as directed daily , Notes to Pharmacist: L3216 Additional diagnosis : M20.12- M20.11 - M20.42 - M20.41 -M14.671 - M14.672Not-Taking/PRN Misc. Devices - Miscellaneous as directed Daily , Notes to Pharmacist: [facility] MEDICALLY NECESSAY dx M14.672Not-Taking/PRN Ofloxacin 0.3 % Solution 10 drops into affected ear Otic Daily Not-Taking/PRN Omeprazole 20 MG Capsule Delayed Release 1 capsule 30 minutes before morning meal Orally Daily Not-Taking/PRN valACYclovir HCl 500 MG Tablet 1 tablet Orally Once Not-Taking/PRN Ziac 2.5-6.25 MG Tablet 1 tablet Orally Once a day Medication List reviewed and reconciled with the patient * Allergies: P enicillins: AllergyBactrim TABS: Allergyno[Allergies Verified] Objective: * Vitals: H t: 68 in, HR:78/min, Pain scale:41-10, Oxygen sat %:97%, Ht-cm: 172.72 cm. * Examination: P odiatry Examination: SKIN: s kin intact, n o sign of infection. MUSCULOSKELETAL: V algus hindfoot deformity is nonreducible. Ankle range of motion 0 degrees dorsiflexion and 25 degrees of plantarflexion. C T scan was reviewed with the patient which shows lateral dislocation of the subtalar joint and Charcot changes throughout the medial column. This does all appear to be chronic in nature. Assessment: * Assessment: 1. C harcot ankle, left - M14.672 (Primary) 2 . O ther dislocation of left foot, sequela - S93.335S 3 . I diopathic neuropathy - G60.9 4 . L ymphedema, not elsewhere classified - I89.0 Plan: * Treatment: 2. L ymphedema, not elsewhere classified Notes: Patient also relates to chronic swelling worse on her left leg than her right which only mildly responds to compression stockings. I provided referral to PT/OT for lymphedema management with wraps/pumps as needed as well as massage. This also be beneficial especially if the patient requires surgical intervention Referral To:Occupational Therapy [facility] Occupational Therapy Reason:evaluation and treatment -- lymphedema 3. O thers Notes: Patient also inquired about a prescription for a motorized wheelchair/scooter which I believe would be very beneficial to the patient as she has bilateral Charcot and is a high fall risk. This would help gain independence and perform activities of daily living while minimizing the chance of fall or injury. She will inquire from a local medical supply company regarding if she needs a prescription and if it needs to come from her primary care or from myself. She will call the office with any further information as I would be happy to provide her with any assistance in gaining insurance approval for this much-needed device * Procedure Codes: * * Sign off status: Completed Visit Status: C HK (Check Out) true * Provider: Shiraz Armando DPM, MS Date: 0 04/27/2024 Generated for Denny hughes/Vernon/Kevensmitting on: 0 05/09/2025 09:32 AM EDT History and Physical Notes * HPI (History of Present Illness) Category Sub-Category Detail Notes Category Not es General Patient here fo r follow up and CT review which was completed this AM at [facility]. States overall she is doing a little better since she got her ANDREAFSKI boot adjusted. States that added foam and she is able to get calf strap tighter so things are fitting better. Examination Category Sub-Category Detail Notes Category Not es Podiatry Examination SKIN: skin intact, no sign of infection CT scan was reviewed with the patient which shows lateral dislocation of the subtalar joint and Charcot changes throughout the medial column. This does all appear to be chronic in nature MUSCULOSKELETAL: Valgus hindfoot defo rmity is nonreducible. Ankle range of motion 0 degrees dorsiflexion and 25 degrees of plantarflexion Consultation Request Notes Referral Date Referring Provider Referred Provider Not es 04/27/2024 Delroy Armando [facility], Occupational Thera py evaluation and treatment -- lymphedema
--- OUTSIDE RECORDS SUMMARY | 2024-06-29 06:00 | XMS_ITS ---
Author Organization The [facility] in [place] Address [address] [place] [address] Care Team Providers Care Magnetic Observer Name Role Phone Jamey Gray DO Primary Care Provider Delroy Dee [phone] Allergies Allergen (clinical drug ingredient) Drug/Non Drug Allergy documented on EMR Reaction Allergy Type Onset Date Status Substance with penicillin structure and antibacterial mechanism of action (substance) Penicillins (uncoded) Unknown Allergy Active Bactrim TABS Unknown Drug Allergy Acti ve Results Component Value Reference Range Notes XR Foot RT (3 views) * Reviewed date:09/27/2024 02:33:02 PM Interpretation: Performing Lab: Notes/Report: REASON FOR VISIT 2-3 months Medications Medication SIG (Take, Route, Frequency, Duration) Notes Start Date End Date Status Custom Molded Shoe Insert -- as directed Daily for 365 days MEDICALLY NECESSARY 2 EACH ACCOMADATVIE INSERTS 01/13/2023 Active Custom Molded Inserts -- as directed -- daily for 365 days [id number] Additional diagnosis : M20.12- M20.11 - M20.42 - M20.41 -M14.671 - M14.672 02/27/2023 Active Calcium Active BuSpar 15 MG 1 tablet Orally BID Active buPROPion HCl 150 MG 2 tablets Orally Daily Active traMADol HCl 50 MG 1 tablet as needed Orally Daily Active Meloxicam 15 MG 1 tablet Orally Daily Active Fluoxetine 20 MG 2 capsules Orally Daily Active Four Wheeled Walker with Seat as directed Daily for 90 days DX: M14.672 08/06/2023 Active Four Wheeled Walker with Seat as directed Daily for 365 days MEDICALLY NECESSARY 01/13/2023 Active Social History Tobacco Use: Social History Observation Description Date Details (start date - stop date) Never Smoker NA - NA Tobacco Use/Smoking Question Answer Notes Patient is a nonsmoker Vital Signs Temperature 97.8 degrees Fahrenheit 06/29/20 Heart Rate 74 /min 06/29/2024 Height 68 in 06/29/2024 Weight 215 lbs 06/29/2024 BMI 32.69 kg/m2 06/29/2024 Oximetry 97 % 06/29/2024 Encounters Encounter Location Date Provider Diagnosis [facility] (PODIATRY) [address] [place] [address] [place] [address] 06/29/2024 Delroy Armando Charcot ankle, left M14.672 ; Charcot ankle, right M14.671 ; Hereditary and idiopathic neuropathy, unspecified G60.9 ; Other dislocation of left foot, sequela S93.335S ; Pain in left ankle and joints of left foot M25.572 and Pain in right ankle and joints of right foot M25.571 Assessments Encounter Date Diagnosis (ICD Code) Assessment Notes Treatment Notes Treatment Clinical Notes Section Notes 06/29/2024 Charcot ankle, left (ICD-10 - M14.672) Patient presents for follow-up and her feet are currently stable. She has not undergone any treatment for the lymphedema but does continue pool therapy which is helping her a great deal. Currently her bilateral feet are stable and she will bowl but did recommend that she remain in the Lime boot on the left and diabetic shoe on the right. Although things are stable now she does remain at high risk for ulcer development and limb loss. She is to closely monitor her feet. I would like her to follow-up with weightbearing foot x-rays in 3 months 06/29/2024 Charcot ankle, right (ICD-10 - M14.671) 06/29/2024 Hereditary and idiopathic neuropathy, unspecified (ICD-10 - G60.9) 06/29/2024 Other dislocation of left foot, sequela (ICD-10 - S93.335S) 06/29/2024 Pain in left ankle and joints of left foot (ICD-10 - M25.572) 06/29/2024 Pain in right ankle and joints of right foot (ICD-10 - M25.571) Plan Of Treatment Treatment Notes Assessment Notes Charcot ankle, left Patient presents for follow-up and her feet are currently stable. She has not undergone any treatment for the lymphedema but does continue pool therapy which is helping her a great deal. Currently her bilateral feet are stable and she will bowl but did recommend that she remain in the Lime boot on the left and diabetic shoe on the right. Although things are stable now she does remain at high risk for ulcer development and limb loss. She is to closely monitor her feet. I would like her to follow-up with weightbearing foot x-rays in 3 months Pending Test Test Name Order Date XR Ankle LT (3 views) * (164) 06/29/2024 XR Ankle RT (3 views) * (161) 06/29/2024 XR Foot LT (3 views) * 06/29/2024 Progress Notes * Davina GERMAIN LDOB:1960 ( 63 yo F)Acc No.[id number]:06/29/2024 Follow Up Patient: Davina MOMIN Provider: Shiraz Armando DPM, MS :1960 A ge:63 Y S ex:Female Date:06/29/2024 Address:[facility] [address], [place], [id number] Pcp:Jamey Gray, DO Check In:09:39 AM ESTCheck O ut:10:31 AM EST Subjective: * Chief Complaints: * 2 -3 months * HPI: G eneral: Patient here for follow up to evaluate her left charcot ankle. She has been wearing her WALKER RIVER boot without complications. Denies any ulcerations, denies rubbing. States she has returned to [facility] to swim and states this has improved her stability. She is still holding off on lymphedema therapy at this time. Denies pain. * ROS: G eneral/Constitutional: Chills d enies. [...] M usculoskeletal: Bone/Joint Symptoms d enies. C half-way Pain d enies.?Leg cramps d enies. N eurologic: Numbness d enies. T ingling d enies . G ait abnormality d enies. ? H ematology: Anemia D enies. E asy bruising d enies. ? A ll Other Systems: Review of Systems (ROS) S ee HPI for details,All others negative except those mentioned in HPI. * Active Problem List M79.672 Pain in left foot Modified On:01/20/2023 Status:confirmed M79.671 Pain in right foot Modified On:01/20/2023 Status:confirmed M25.571 Pain in right ankle and joints of right foot Modified On:02/27/2023 Status:confirmed M25.572 Pain in left ankle a nd joints of left foot Modified On:02/27/2023 Status:confirmed M21.072 Valgus deformity, no t elsewhere classified, left ankle Modified On:02/27/2023 Status:confirmed M21.071 Valgus deformity, no t elsewhere [...] Other hammer toe(s) (acquired), right foot Modified On:02/27/2023U Status:confirmed M72.2 Plantar fascial fibr omatosis Modified On:07/31/2023U Status:confirmed S93.335A Other dislocation of left foot, initial encounter Modified On:12/16/2023U Status:confirmed M14.672 Charcot's joint, lef t ankle and foot Modified On:12/23/2023/U Status:confirmed G60.9 Hereditary and idiop athic neuropathy, unspecified Modified On:04/21/2024U Status:confirmed M14.671 Charcot's joint, rig ht ankle and foot Modified On:04/21/2024U Status:confirmed I89.0 Lymphedema, not else where classified Modified On:04/27/2024U Status:confirmed * Medical History: * Surgical History: t onsils knee replacement CTS bilateral feet ---bunion gastric bypass Right midfoot fusion at [facility] 10/07/2014 * Hospitalization/Major Diagno stic Procedure: yifan wisdom * Family History: F ather: , diagnosed with Diabetes mellitus without mention of complication, type II or unspecified type, not stated as uncontrolled, Unspecified essential hypertension. M other: , diagnosed with Diabetes mellitus without mention of complication, type II or unspecified type, not stated as uncontrolled, Unspecified essential hypertension. B rother(s): alive. S ister(s): alive. S on(s): . M igrated Family History:: Sororal history of Breast Cancer (V16.3);. 1 brother(s) , 3 sister(s) . 1 son(s) . . * Social History: T obacco Use: T obacco Use/Smoking P atient is a n onsmoker * Medications: T [...] directed Daily , Notes to Pharmacist: DX: M14.672Meloxicam 15 MG Tablet 1 tablet Orally Daily [...] directed Daily , Notes to Pharmacist: DX: M14.2Taking Meloxicam 15 MG Tablet 1 tablet Orally Daily Taking traMADol HCl 50 MG Tablet 1 tablet as needed Orally Daily DiscontinuedCyclobenzaprine HCl 10 MG Tablet 1 tablet Orally [...] as directed Daily , Notes to Pharmacist: WALKER RIVER WALKER LT FT MEDICALLY NECESSAY dx M14.672Ofloxacin 0.3 % Solution 10 drops into affected ear Otic Daily Omeprazole 20 MG Capsule Delayed Release 1 capsule 30 minutes before morning meal Orally Daily valACYclovir HCl 500 MG Tablet 1 tablet Orally Once Ziac 2.5-6.25 MG Tablet 1 tablet Orally Once a day Medication List reviewed and reconciled with the patientDiscontinued Cyclobenzaprine HCl 10 MG Tablet 1 tablet Orally Once a day Discontinued Ferrous Sulfate 325 MG Capsule 1 tablet Orally Once a day Discontinued Gabapentin 300 MG Capsule 1 capsule Orally Daily Discontinued Imitrex Discontinued Lidoderm(Lidocaine) 5 % Patch 1 patch remove after 12 hours Externally Once a day Discontinued Misc. Devices - Miscellaneous as directed Daily , Notes to Pharmacist: Medically Necessary Tayco Braces M14.671 M14..672 bilateral feetDiscontinued Misc. Devices - Miscellaneous as directed Daily , Notes to Pharmacist: Medically necessary CUSTOM SHOESDiscontinued Misc. Devices - Miscellaneous as directed daily , Notes to Pharmacist: [id number] Additional diagnosis : M20.12- M20.11 - M20.42 - M20.41 -M14.671 - M14.672Discontinued Misc. Devices - Miscellaneous as directed Daily , Notes to Pharmacist: CARA LAN LT FT MEDICALLY NECESSAY dx M14.2Discontinued Ofloxacin 0.3 % Solution 10 drops into affected ear Otic Daily Discontinued Omeprazole 20 MG Capsule Delayed Release 1 capsule 30 minutes before morning meal Orally Daily Discontinued valACYclovir HCl 500 MG Tablet 1 tablet Orally Once Discontinued Ziac 2.5-6.25 MG Tablet 1 tablet Orally Once a day Medication List reviewed and reconciled with the patient * Allergies: P enicillins: AllergyBactrim TABS: Allergyno[Allergies Verified] Objective: * Vitals: W t:215lbs, Ht: 68 in, Temp:97.8F, HR:74/min, BMI:32.69Index, Pain scale:01-10, Oxygen sat %:97%, Ht-cm: 172.72 cm, Wt-k.52 kg. * Examination: P odiatry Examination: SKIN: s kin intact, n o sign of infection. MUSCULOSKELETAL: F oot is. NEUROLOGICAL: l ight touch sensation intact, n egative tinel's sign. VASCULAR: P edal pulses Faintlypalpable, C apillaryrefill is brisk to toe, M oderate swelling bilateral legs which is nonpitting today. X -rays: x-rays were obtained & reviewed in my office. X-rays were compared to those obtained previously and there is hardware without change in location of the midfoot. Chronic Charcot changes bilateral foot with collapse of the subtalar joint bilaterally. Assessment: * Assessment: 1. C harcot ankle, left - M14.672 (Primary) 2 . C harcot ankle, right - M14.671 3 .?Hereditary and idiopathic neuropathy, unspecified - G60.9 4 . O ther dislocation of left foot, sequela - S93.335S 5 . P ain in left ankle and joints of left foot - M25.572 6 . P ain in right ankle and joints of right foot - M25.571 Plan: * Treatment: 2. P ain in left ankle and joints of left foot I maging: XR Ankle LT (3 views) * (164) I maging: XR Foot LT (3 views) * 3. P ain in right ankle and joints of right foot I maging: XR Ankle RT (3 views) * (161) I maging: XR Foot RT (3 views) * * Procedure Codes: * * Sign off status: Completed Visit Status: Yifan LEE (Check Out) true * Provider: Shiraz Armando DPM, MS Date: Generated for Denny hughes/Vernon/Karinaitting on: 0 05/09/2025 09:32 AM EDT History and Physical Notes * HPI (History of Present Illness) Category Sub-Category Detail Notes Category Not es General Patient here fo r follow up to evaluate her left charcot ankle. She has been wearing her WALKER RIVER boot without complications. Denies any ulcerations, denies rubbing. States she has returned to [facility] to swim and states this has improved her stability. She is still holding off on lymphedema therapy at this time. Denies pain. Examination Category Sub-Category Detail Notes Category Not es Podiatry Examination SKIN: skin intact, no sign of infection X-rays: x-rays were obtained & reviewed in my office. X-rays were compared to those obtained previously and there is hardware without change in location of the midfoot. Chronic Charcot changes bilateral foot with collapse of the subtalar joint bilaterally. MUSCULOSKELETAL: Foot is NEUROLOGICAL: light touch sensatio n intact, negative tinel's sign VASCULAR: Pedal pulses Faintlypalpable, Capillary refill is brisk to toe, Moderate swelling bilateral legs which is nonpitting today
--- OUTSIDE RECORDS SUMMARY | 2025-01-04 06:00 | XMS_ITS ---
Author Organization [facility] [place] Address [address] [place] [address] Care Team Providers Care Histology Supervisor Name Role Phone Jamey Gray DO Primary Care Provider Delroy Dee [phone] REASON FOR VISIT 6 month follow up already spoke to pt ph is moving , left on here for report Encounters Encounter Location Date Provider Diagnosis [facility] (PODIATRY) [address] [place] [address] [place] [address] 01/04/2025 Delroy Armando Plan Of Treatment No Information Progress Notes * Davina GERMAIN LDOB:1960 ( 64 yo F)Acc No.[id number]:01/04/2025 UNLOCKED PROGRESS NOTE Follow Up Patient: Davina MOMIN Provider: Shiraz Armando DPM, MS :1960 A ge:64 Y S ex:Female Date:01/04/2025 Address:[facility] [address] , [facility] Pcp:Jamey Gray DO Subjective: * Chief Complaints: * 1 . 6 month follow up already spoke to pt ph is moving , left on here for report. * Medical History: Objective: * Vitals: Assessment: Plan: * Treatment: * * Electronic signature of Darian Armando DPM on 05/09/2025 at 09:32 AM EDT Sign off status: Pending Visit Status: O FF CANC (OFFICE CANCEL) * Provider: Shiraz Armando DPM, MS Date: 0 01/04/2025 Generated for Denny hughes/Vernon/Marlyn on: 0 05/09/2025 09:32 AM EDT
[2025-05-09 09:32] VITALS: BP 170/98; PULSE 84; TEMP 36.8; O2SAT 98; BMI 34.2
--- OUTSIDE RECORDS SUMMARY | 2025-05-09 09:32 | XMS_ITS | Clinical Summary ---
Author Organization [employer] tem Address [facility] [place]-[id number] [address] [place] [address] Care Team Providers Care Sign Poster Name Role Phone Isaac Jamey Saha DO Primary Care Provider Allergies Active Allergy Reactions Criticality Noted Date [...] 05/30/2025 Medical Devices Not on file Insurance [address] [address] [employer] Care Teams Sign Poster Relationship Specialty Start Date End Date Jamey Gray DO PCP - General 10/14/12
--- OUTSIDE RECORDS SUMMARY | 2025-05-09 09:32 | XMS_ITS | Encounter Summary ---
Author Organization [facility] tem Address [id number] [address] [place] [address] Care Team Providers Care Technician'S Helper Name Role Phone Jamey Gray DO Primary Care Provider [phone] Encounter Details Date Type Department Care Team (Late st Contact Info) Description 12/16/2018 Telephone [facility] [address] [place] [address] Jo Ann Barney Social History Tobacco Use [...] documented as of this encounter Care Teams Technician'S Helper Relationship Specialty Start Date End Date Jamey Gray DO PCP - General 10/14/12 documented as of this encounter
--- OUTSIDE RECORDS SUMMARY | 2025-05-09 09:32 | XMS_ITS | Encounter Summary ---
Author Organization [facility] Address [address] [place] [address] Care Team Providers Care Instruments Sales Representative Name Role Phone Moses Keith MD Primary Care Provider [phone] Moses Keith MD Unavailable [phone] Encounter Details Date Type Department Care Team (Late st Contact Info) Description 05/06/2025 Telephone [facility] Medicine [address] [place] [phone] Ange Ballard MA Social History Tobacco Use Types Packs/Day [...] encounter Miscellaneous Notes * Telephone Encounter - Ange Ballard MA - 05/06/2025 12:38 PM EDT Done * Addendum Note - Ange Ballard MA - 05/06/2025 12:38 PM EDTAddended by: ANGE BALLARD on: 05/06/2025 12:38 PM Modules accepted: Orders * Telephone Encounter - [place] NP - 05/06/2025 12:13 PM EDT Okay to send prednisone ten day taper. * Telephone Encounter - Ange Ballard MA - 05/06/2025 9:06 AM EDT Pt is having leg and ankle pain. She would like prednisone taper called in and she will make an appt for next week. She can not walk or feel she could drive to the office today documented in this encounter Plan of Treatment Upcoming Encounters Date Type Department Care Team (Late st Contact Info) Description 05/24/2025 10:00 AM EDT Office Visit [facility] [address] [address] [place] [address] [facility] [address] [place] [address] documented as of this encounter Goals Goal [...] documented as of this encounter Care Teams Instruments Sales Representative Relationship Specialty [place] [address] [place] [address] PCP - General Family Medicine 12/21/24 [place] [address] [place] [address] PCP - [employer] 03/29/25 documented as of this encounter
--- OUTSIDE RECORDS SUMMARY | 2025-05-09 09:32 | XMS_ITS | Encounter Summary ---
Author Organization [facility] Address [address] [place] [address] Care Team Providers Care Waiter/Waitress Counter Name Role Phone Moses Keith MD Primary Care Provider [phone] Moses Keith MD Unavailable [phone] Encounter Details Date Type Department Care Team (Late st Contact Info) Description 04/25/2025 Telephone [facility] Medicine [address] [place] [phone] Maria Victoria Sewell MA Social History Tobacco Use Types Packs/Day [...] encounter Miscellaneous Notes * Telephone Encounter - Maria Victoria Sewell MA - 04/25/2025 12:13 PM EDT My name is Marcial Radford. My date is october 1218 and I need it is a generic for Prozac. It is flux et40 milligram cap and he gives me a 183 month supply and that is called to Susan in [place]. And that phone number is [phone], thank you very much. My phone number can happen to name me [phone]. Thanks, bye. documented in this encounter Plan of Treatment Upcoming Encounters Date Type Department Care Team (Late st Contact Info) Description 05/24/2025 10:00 AM EDT Office Visit [facility] Family Medicine [address] [address] [place] [address] [facility] [address] [place] [address] documented as of this encounter Goals Goal Patient Goal Type Associated Problems Recent Progress Patient-Stated? Author Help patient manage antidepressant medication Care Plan Patient on antidepressant monitoring plan No Gaviota Kwon MA Baseline PHQ-9 Care Plan Baseline PHQ-9 Gaviota Power MA documented as of this encounter Visit Diagnoses Diagnosis Major depressive disorder with single episode, in remission documented in this encounter Additional Health Concerns Active Problems Noted Date Diagnosed Date Patient on antidepressant monitoring plan 2022 Baseline PHQ-9 07/14/2023 Assessment Noted Time PHQ-9 Depression Total Score: 0 05/20/20 24 12:00 PM EDT documented as of this encounter Care Teams Waiter/Waitress Counter Relationship Specialty [place] [address] [facility] [address] [place] [address] PCP - General Family Medicine 12/21/24 [place] [address] [address] [facility] [address] [place] [address] PCP - [employer] 03/29/25 documented as of this encounter
--- OUTSIDE RECORDS SUMMARY | 2025-05-09 09:32 | XMS_ITS | Patient Health Record ---
Author Organization [facility] Address [address] [place] [address] Care Team Providers Care Leaf Sucker Operator Name Role Phone Jamey Gray DO Primary Care Provider Dewayne Dee [phone] Allergies Allergen (clinical drug ingredient) Drug/Non Drug Allergy documented on EMR Reaction Allergy Type Onset Date Status Substance with penicillin structure and antibacterial mechanism of action (substance) Penicillins (uncoded) Unknown Allergy Active Bactrim TABS Unknown Drug Allergy Acti ve Results Component Value Reference Range Notes XR ankle WILLI min 3V (Not yet reviewed by provider) Interpretation: Performing Lab: Notes/Report: Source Facility: [place] [address] XRay Report Signed Patient: LUÍS GERMAIN MR#: [id number] : 1960 Acct:[id number] Age/Sex: 63 / F ADM Date: 06/29/24 Loc: EC Attending Dr: Dewayne Armando D.P.M. Ordering Physician: Dewayne Armando D.P.M. Date of Service: 06/29/24 Procedure(s): XR ankle WILLI min 3V Accession Number(s): [id number] cc: Dewayne Armando D.P.M.; Physician,Non-Staff [place] [address] Patient Name: LUÍS GERMAIN MRN: [facility]:[id number] date: 1960 Sex: F Assigned Patient Location: Current Patient Location: Accession/Order Number: [id number] Exam Date: 06/29/2024 09:44 Report Date: 06/29/2024 11:00 At the request of: DEWAYNE ARMANDO Procedure: XR ankle WILLI min 3V EXAMINATION: XR ankle WILLI min 3V, XR foot WILLI min 3V HISTORY: BILATERAL ANKLE PAIN COMPARISON: 04/21/2024 FINDINGS: RIGHT FINDINGS: BONES: No acute fracture. Marked degenerative changes with anterior subluxation of the talus in relation to the calcaneus and complete flattening of the plantar arch. Bony remodeling throughout the midfoot and hindfoot. Surgical fusion hardware with fixation across the first second and third tarsometatarsal joints. Single screw across the first and second metatarsal heads. SOFT TISSUES: Negative. No visible soft tissue swelling. OTHER: Negative. LEFT FINDINGS: BONES: No acute fracture. Marked degenerative changes with anterior subluxation of the talus in relation to the calcaneus and flattening of the plantar arch. Severe bony remodeling throughout the midfoot and hindfoot. Fusion of the first tarsometatarsal joint with a plate and multiple screws. Severe degenerative change first metacarpal phalangeal joint SOFT TISSUES: Negative. No visible soft tissue swelling. OTHER: Negative. XR/XR ankle WILLI min 3V IMPRESSION: Bilateral marked degenerative changes with pes planus and anterior subluxation of the talus in relation to the calcaneus consistent with neuropathic osteoarthropathy Electronically authenticated by: LAURA MEYERS Date: 06/29/2024 11:00 Dictated By: Laura Meyers M.D. Signed By: 06/29/24 1103 DD/ 1100 TD/TT: Analyst: [place] [address] XRay Report Signed Patient: LUÍS GERMAIN MR#: [id number] : 1960 Acct:[id number] Age/Sex: 63 / F ADM Date: 06/29/24 Loc: Attending Dr: Dewayne Armando D.P.M. Ordering Physician: Dewayne Armando D.P.M. Date of Service: 06/29/24 Procedure(s): XR ankle WILLI min 3V Accession Number(s): [id number] cc: Dewayne Armando D.P.M.; Physician,Non-Staff [place] [address] Patient Name: LUÍS GERMAIN MRN: [id number] date: 1960 Sex: F Assigned Patient Location: Current Patient Location: Accession/Order Numb er: [id number] Exam Date: 09:44 Report Date: 06/29/2024 11:00 At the request of: DEWAYNE ARMANDO Procedure: XR ankle WILLI min 3V EXAMINATION: XR ankl e WILLI min 3V, XR foot WILLI min 3V HISTORY: BILATERAL ANKLE PAIN COMPARISON: 04/21/2024 FINDINGS: RIGHT FINDINGS: BONES: No acute frac ture. Marked degenerative changes with anterior subluxation of the talus in rela tion to the calcaneus and complete flattening of the plantar arch. Bony r emodeling throughout the midfoot and hindfoot. Surgical fusion hardware with fixation across the first second and third tarsometatarsal joints. Single screw across the first and second metatarsal heads. SOFT TISSUES: Negati ve. No visible soft tissue swelling. OTHER: Negative. LEFT FINDINGS: BONES: No acute frac ture. Marked degenerative changes with anterior subluxation of the talus in rela tion to the calcaneus and flattening of the plantar arch. Severe bony remodeli ng throughout the midfoot and hindfoot. Fusion of the first tarsometatarsal join t with a plate and multiple screws. Severe degenerative change first metacar pal phalangeal joint SOFT TISSUES: Negati ve. No visible soft tissue swelling. OTHER: Negative. X R/XR ankle WILLI min 3V IMPRESSION: Bilateral marked deg enerative changes with pes planus and anterior subluxation of the talus in rela tion to the calcaneus consistent with neuropathic osteoarthropathy Electronically authe nticated by: LAURA MEYERS Date: 06/29/2024 11:00 Dictated By: Laura Meyers M.D. Signed By: 06/29/24 1103 DD/ 1100 TD/TT: Analyst: XR foot WILLI min 3V (Not yet reviewed by provider) Interpretation: Performing Lab: Notes/Report: Source Facility: [place] [address] [place] [address] XRay Report Signed Patient: LUÍS GERMAIN MR#: [id number] : 1960 Acct:[id number] Age/Sex: 63 / F ADM Date: 06/29/24 Loc: EC Attending Dr: Dewayne Armando D.P.M. Ordering Physician: Dewayne Armando D.P.M. Date of Service: 06/29/24 Procedure(s): XR foot WILLI min 3V Accession Number(s): [id number] cc: Dewayne Armando D.P.M.; Physician,Non-Staff [place] [address] Patient Name: LUÍS GERMAIN MRN: [id number] date: 1960 Sex: F Assigned Patient Location: Current Patient Location: Accession/Order Number: [id number] Exam Date: 06/29/2024 09:44 Report Date: 06/29/2024 11:00 At the request of: DEWAYNE ARMANDO Procedure: XR foot WILLI min 3V EXAMINATION: XR ankle WILLI min 3V, XR foot WILLI min 3V HISTORY: BILATERAL ANKLE PAIN COMPARISON: 04/21/2024 FINDINGS: RIGHT FINDINGS: BONES: No acute fracture. Marked degenerative changes with anterior subluxation of the talus in relation to the calcaneus and complete flattening of the plantar arch. Bony remodeling throughout the midfoot and hindfoot. Surgical fusion hardware with fixation across the first second and third tarsometatarsal joints. Single screw across the first and second metatarsal heads. SOFT TISSUES: Negative. No visible soft tissue swelling. OTHER: Negative. LEFT FINDINGS: BONES: No acute fracture. Marked degenerative changes with anterior subluxation of the talus in relation to the calcaneus and flattening of the plantar arch. Severe bony remodeling throughout the midfoot and hindfoot. Fusion of the first tarsometatarsal joint with a plate and multiple screws. Severe degenerative change first metacarpal phalangeal joint SOFT TISSUES: Negative. No visible soft tissue swelling. OTHER: Negative. XR/XR foot WILLI min 3V IMPRESSION: Bilateral marked degenerative changes with pes planus and anterior subluxation of the talus in relation to the calcaneus consistent with neuropathic osteoarthropathy Electronically authenticated by: LAURA MEYERS Date: 06/29/2024 11:00 Dictated By: Laura Meyers M.D. Signed By: 06/29/24 1102 DD/ 1100 TD/TT: Analyst: [place] [address] XRay Report Signed Patient: LUÍS GERMAIN MR#: [id number] : 1960 Acct:[id number] Age/Sex: 63 / F ADM Date: 06/29/24 Loc: EC Attending Dr: Dewayne Armando D.P.M. Ordering Physician: Dewayne Armando D.P.M. Date of Service: 06/29/24 Procedure(s): XR foot WILLI min 3V Accession Number(s): [id number] cc: Dewayne Armando D.P.M.; Physician,Non-Staff [place] [address] Patient Name: LUÍS GERMAIN MRN: [id number] date: 1960 Sex: F Assigned Patient Location: Current Patient Location: Accession/Order Numb er: [id number] Exam Date: 09:44 Report Date: 06/29/2024 11:00 At the request of: DEWAYNE ARMANDO Procedure: XR foot WILLI min 3V EXAMINATION: XR ankl e WILLI min 3V, XR foot WILLI min 3V HISTORY: BILATERAL ANKLE PAIN COMPARISON: 04/21/2024 FINDINGS: RIGHT FINDINGS: BONES: No acute frac ture. Marked degenerative changes with anterior subluxation of the talus in rela tion to the calcaneus and complete flattening of the plantar arch. Bony r emodeling throughout the midfoot and hindfoot. Surgical fusion hardware with fixation across the first second and third tarsometatarsal joints. Single screw across the first and second metatarsal heads. SOFT TISSUES: Negati ve. No visible soft tissue swelling. OTHER: Negative. LEFT FINDINGS: BONES: No acute frac ture. Marked degenerative changes with anterior subluxation of the talus in rela tion to the calcaneus and flattening of the plantar arch. Severe bony remodeli ng throughout the midfoot and hindfoot. Fusion of the first tarsometatarsal join t with a plate and multiple screws. Severe degenerative change first metacar pal phalangeal joint SOFT TISSUES: Negati ve. No visible soft tissue swelling. OTHER: Negative. X R/XR foot WILLI min 3V IMPRESSION: Bilateral marked deg enerative changes with pes planus and anterior subluxation of the talus in rela tion to the calcaneus consistent with neuropathic osteoarthropathy Electronically authe nticated by: LAURA MEYERS Date: 06/29/2024 11:00 Dictated By: Laura Meyers M.D. Signed By: 06/29/24 1102 DD/ 1100 TD/TT: Analyst: XR Foot RT (3 views) * Reviewed date:09/27/2024 02:33:02 PM Interpretation: Performing Lab: Notes/Report: Reason For Referral No Information Medications Medication SIG (Take, Route, Frequency, Duration) Notes Start Date End Date Status Fluoxetine 20 MG 2 capsules Orally Daily Active Custom Molded Shoe Insert -- as directed [...] Question Answer Notes Patient is a nonsmoker Alcohol Screen (Audit-C) Question Answer Notes Did you have a drink containing alcohol in the p ast year? No Points 0 Interpretation Negative Problems Problem Type SNOMED Code ICD Code Onset Dates Problem Status W/U Status Risk Notes Problem 52087001 Hereditary and idiopathic neuropathy, unspecified (G60.9) Active confirmed Problem 721900924 Lymphedema, not elsewhere classified (I89.0) Active confirmed Problem 892259647 Charcot's joint, right ankle and foot (M14.671) Active confirmed Problem Arthropathy associated with a neurological disorder (53903521) Charcot's joint, left ankle and foot (M14.672) Active confirmed Problem Closed traumatic dislocation ankle joint (838923268) Subluxation of left ankle joint, initial encounter (S93.02XA) Active confirmed Problem Other dislocation of left foot, initial encounter (S93.335A) Active confirmed Problem Arthralgia of the ankle and/or foot (663448924) Pain in right ankle and joints of right foot (M25.571) Active confirmed Problem Pain in right foot (991858474924265 ) Pain in right foot (M79.671) Active confirmed Problem Acquired hallux valgus (54886357) Hallux valgus (acquired), right foot (M20.11) Active confirmed Problem Acquired hammer toe of right foot (627511213141176 5) Other hammer toe(s) (acquired), right foot (M20.41) Active confirmed Problem Disorder of ankle (380740414) Valgus deformity, not elsewhere classified, right ankle (M21.071) Active confirmed Problem Arthralgia of the ankle and/or foot (470890854) Pain in left ankle and joints of left foot (M25.572) Active confirmed Problem Pain in left foot (705309926961251 ) Pain in left foot (M79.672) Active confirmed Problem Acquired hallux valgus (84798495) Hallux valgus (acquired), left foot (M20.12) Active confirmed Problem Acquired hammer toe of left foot (762780865387464 3) Other hammer toe(s) (acquired), left foot (M20.42) Active confirmed Problem Valgus deformity (269584466) Valgus deformity, not elsewhere classified, left ankle (M21.072) Active confirmed Problem Plantar fascial fibromatosis (42167675) Plantar fascial fibromatosis (M72.2) Active confirmed Problem Closed traumatic dislocation ankle joint (921373750) Closed dislocation of right talus, initial encounter (S93.04XA) Active confirmed Vital Signs Heart Rate 74 /min 06/29/2024 Temperature 97.8 degrees Fahrenheit 06/29/2024 Oximetry 97 % 06/29/2024 Height 68 in 06/29/2024 Weight 215 lbs 06/29/2024 BMI 32.69 kg/m2 06/29/2024 Encounters Encounter Location Date Provider Diagnosis [facility] (POD[facility]) [address] [place] [address] [place] [address] 06/29/2024 Dewayne Armando Charcot ankle, left M14.672 ; Charcot [...] did recommend that she remain in the [place] boot on the left and diabetic shoe [...] foot (ICD-10 - M25.571) Plan Of Treatment Pending Test Test Name Order Date XR Ankle LT (3 views) * (164) 06/29/2024 XR Ankle RT (3 views) * (161) 06/29/2024 XR Foot LT (3 views) * 06/29/2024 CT ANKLE LT WO CON 04/27/2024 XR ankle WILLI min 3V 04/21/2024 XR ankle WILLI min 3V 06/29/2024 XR foot WILLI min 3V 06/29/2024 XR foot WILLI min 3V 04/21/2024 Future Test Test Name Order Date XR Ankle LT (3 views) * (164) 04/17/2024 XR Ankle RT (3 views) * (161) 04/17/2024 XR Foot LT (3 views) * 04/17/2024 XR Foot RT (3 views) * 04/17/2024 Insurance Providers Payer Name Payer Address Payer Phone Subscriber Number Group Number Insured Name Patient Relationship to Insured Coverage Start Date Coverage End Date [facility] [address] [place] [address] [id number] Luís Germain Self - patient is the insured [place] 2[employer] INS [address] OFF[place] OF [place], [place] [id number] Luís Germain Self - patient is the insured 4 Medications Administered Medication Instructions Date of Administration Dosage Notes Bupivacaine 07/16/2023 2 mL left plantar heel Triamcinolone 40 mg/ml 07/16/2023 1 mL le ft plantar heel Medical (General) History Medical History History ICD Code HTN Migraines Depression Arthritis Surgical History Surgery Date(Month/Year) gastric bypass bilateral feet ---bunion CTS knee replacement tonsils Right midfoot fusion at [facility] spine [facility] 10/07/2014 Hospitalization History Reason Date(Month/Year) children
--- OUTSIDE RECORDS SUMMARY | 2025-05-09 09:33 | XMS_ITS | Encounter Summary ---
Author Organization [facility] Address [address] [place] [address] Care Team Providers Care Technical Staff Engineer Name Role Phone Jamey Gray DO Unavailable [phone] Jamey Gray DO Unavailable [phone] Moses Keith MD Primary Care Provider [phone] Moses Keith MD Unavailable [phone] Moses Keith MD Unavailable [phone] Encounter Details Date Type Department Care Team (Late st Contact Info) Description 05/28/2024 Abstract [facility] Medicine [address] [place] [address] Janet Matute MA Social History Tobacco Use [...] Description 05/24/2025 10:00 AM EDT Office Visit [facility] [address] [place] [address] [place] [address] [place] [address] documented as of this encounter Goals Goal [...] Time PHQ-9 Depression Total Score: 0 05/20/20 12:00 PM EDT documented as of this encounter Care Teams Technical Staff Engineer Relationship Specialty Start Date End Date Jamey Gray DO PCP - [facility] 06/29/23 09/28/24 Jamey Grya DO PCP - [facility] 09/29/24 12/27/24 [place] [address] [place] [address] PCP - General Family Medicine 12/21/24 [place] [address] [place] [address] PCP - [facility]OO[facility] 12/28/24 03/28/25 [place] [address] [place] [address] PCP - Aerex 03/29/25 documented as of this encounter
--- OUTSIDE RECORDS SUMMARY | 2025-05-09 09:33 | XMS_ITS | Encounter Summary ---
Author Organization [facility] Address [address] [place] [address] Care Team Providers Care Industrial Production Manager Name Role Phone Jamey Gray DO Unavailable [phone] Jamey Gray DO Unavailable [phone] Jamey Gray DO Unavailable Moses Keith MD Primary Care Provider [phone] Moses Keith MD Unavailable [phone] Moses Keith MD Unavailable [phone] Encounter Details Date Type Department Care Team (Late st Contact Info) Description 08/26/2023 Abstract [facility] Medicine [address] [place] [address] Janet Matute MA Social History Tobacco Use [...] EDT Office Visit [facility] [address] [facility] [place] [address] [place] [address] [place] [address] documented as of this encounter Goals Goal Patient Goal Type Associated Problems Recent Progress Patient-Stated? Author Help patient manage antidepressant medication Care Plan Patient on antidepressant monitoring plan No Gaviota Kwon MA Baseline PHQ-9 Care Plan Baseline PHQ-9 No Gaviota Kwon MA documented as of this encounter Visit Diagnoses Not on filedocumented in this encounter Additional Health Concerns Active Problems Noted Date Diagnosed Date Patient on antidepressant monitoring plan 2022 Baseline PHQ-9 07/14/2023 documented as of this encounter Care Teams Industrial Production Manager Relationship Specialty Start Date End Date Jamey Gray DO PCP - [facility] 12/28/22 4 Jamey Gray DO PCP - [facility] 06/29/23 09/28/24 Jamey Gray DO PCP - [facility] 09/29/24 12/27/24 [place] [address] [place] [address] PCP - General Family Medicine 12/21/24 [place] [address] [place] [address] PCP - Hina HOOKS 12/28/24 03/28/25 [place] [address] [place] [address] RUTHY - Demi 03/29/25 documented as of this encounter
--- OUTSIDE RECORDS SUMMARY | 2025-05-09 09:33 | XMS_ITS | Encounter Summary ---
Author Organization [facility] Address [address] [place] [address] Care Team Providers Care Scale Shooter Name Role Phone Jamey Gray DO Unavailable [phone] Jamey Gray DO Unavailable [phone] Moses Keith MD Primary Care Provider [phone] Moses Keith MD Unavailable [phone] Moses Keith MD Unavailable [phone] Encounter Details Date Type Department Care Team (Late st Contact Info) Description 07/15/2024 Abstract [facility] Medicine [address] [place] [address] Janet Matute MA Social History Tobacco Use [...] EDT Office Visit [facility] [address] [place] [address] [place] [address] [facility] [place] [address] documented as of this encounter Goals Goal [...] documented as of this encounter Care Teams Scale Shooter Relationship Specialty Start Date End Date Jamey Gray DO PCP - [facility] 06/29/23 09/28/24 Jamey Gray DO PCP - [facility] 09/29/24 12/27/24 [place] [address] [place] [address] PCP - General Family Medicine 12/21/24 [place] [address] [place] [address] PCP - Hina HOOKS 12/28/24 03/28/25 [place] [address] [place] [address] PCP - Aerex 03/29/25 documented as of this encounter
--- OUTSIDE RECORDS SUMMARY | 2025-05-09 09:33 | XMS_ITS | Encounter Summary ---
Author Organization [facility] Address [address] [place] [address] Care Team Providers Care Anthropology And Archeology Instructor Name Role Phone Jamey Gray DO Unavailable [phone] Jamey Gray DO Unavailable [phone] Moses Keith MD Primary Care Provider [phone] Moses Keith MD Unavailable [phone] Moses Keith MD Unavailable [phone] Encounter Details Date Type Department Care Team ([facility] Contact Info) Description 04/27/2024 Abstract [facility] Medicine [address] [place] [address] Jamey Gray, DO Social History Tobacco Use [...] [facility] [address] [facility] [address] [place] [address] [facility] [place] [address] documented as of this encounter Goals Goal [...] documented as of this encounter Care Teams Anthropology And Archeology Instructor Relationship Specialty Start Date End Date Jamey Gray DO PCP - [facility] 06/29/23 09/28/24 Jamey Gray DO PCP - [facility]OO[facility] 09/29/24 12/27/24 [place] [address] [address] PCP - General Family Medicine 12/21/24 [place] [address] [facility] [address] [place] [address] PCP - Hina HOOKS 12/28/24 03/28/25 [place] [address] [facility] [address] [place] [address] PCP - Aerex 03/29/25 documented as of this encounter
--- OUTSIDE RECORDS SUMMARY | 2025-05-09 09:33 | XMS_ITS | Encounter Summary ---
Author Organization [facility] Address [address] [place] [address] Care Team Providers Care Editor Greeting Card Name Role Phone Jamey Gray DO Unavailable [phone] Jamey Gray DO Unavailable [phone] Jamey Gray DO Unavailable [phone] Moses Keith MD Primary Care Provider Moses Keith MD Unavailable [phone] Moses Keith MD Unavailable [phone] Encounter Details Date Type Department Care Team (Late st Contact Info) Description 12/04/2023 Abstract [facility] Medicine [address] [place] [address] Janet Matute MA Social History Tobacco Use [...] [facility] [address] [facility] [place] [address] [place] [address] [place] [address] documented as of this encounter Goals Goal [...] documented as of this encounter Care Teams Editor Greeting Card Relationship Specialty Start Date End Date Jamey Gray DO PCP - [facility] 12/28/22 4 Jamey Gray DO PCP - [facility] 06/29/23 09/28/24 Jamey Gray DO PCP - [facility] 09/29/24 12/27/24 [place] [address] [place] [address] PCP - General Family Medicine 12/21/24 [place] [address] [place] [address] PCP - Hina HOOKS 12/28/24 03/28/25 [place] [address] [place] [address] RUTHY - Demi 03/29/25 documented as of this encounter
--- OUTSIDE RECORDS SUMMARY | 2025-05-09 09:33 | XMS_ITS | Encounter Summary ---
Author Organization [facility] Address [address] [place] [address] Care Team Providers Care Assistant Golf Professional Name Role Phone Jamey Gray DO Unavailable [phone] Jamey Gray DO Unavailable [phone] Moses Keith MD Primary Care Provider [phone] Moses Keith MD Unavailable [phone] Moses Keith MD Unavailable [phone] Encounter Details Date Type Department Care Team (Late st Contact Info) Description 02/19/2024 Orders Only [facility] Medicine [address] [place] [address] Jante Matute MA Swelling Social History Tobacco Use [...] [facility] [address] [facility] [address] [place] [address] [facility] [address] documented as of this encounter Goals Goal [...] documented as of this encounter Care Teams Assistant Golf Professional Relationship Specialty Start Date End Date Jamey Gray DO PCP - [facility] 06/29/23 09/28/24 Jamey Gray DO PCP - [facility] HOOKS 09/29/24 12/27/24 [place] [address] [address] [facility] [address] [place] [address] PCP - General Family Medicine 12/21/24 [place] [address] [address] [facility] [address] [place] [address] PCP - Hina HOOKS 12/28/24 03/28/25 [place] [address] [address] [facility] [address] [place] [address] PCP - Aetjagdeep 03/29/25 documented as of this encounter
--- OUTSIDE RECORDS SUMMARY | 2025-05-09 09:33 | XMS_ITS | Encounter Summary ---
Author Organization [facility] Address [address] [place] [address] Care Team Providers Care Information Technology Intern Name Role Phone Jamey Gray DO Unavailable [phone] Jamey Gray DO Unavailable [phone] Moses Keith MD Primary Care Provider [phone] Moses Keith MD Unavailable [phone] Moses Keith MD Unavailable [phone] Encounter Details Date Type Department Care Team ([facility] Contact Info) Description 04/21/2024 Abstract [facility] Medicine [address] [place] [address] Jamey Gray, DO Social History Tobacco Use [...] [facility] [address] [facility] [place] [address] [place] [address] [facility] [place] [address] documented as of this encounter Goals Goal [...] documented as of this encounter Care Teams Information Technology Intern Relationship Specialty Start Date End Date Jamey Gray DO PCP - [facility] 06/29/23 09/28/24 Jamey Gray DO PCP - [facility] 09/29/24 12/27/24 [place] [address] [address] PCP - General Family Medicine 12/21/24 [place] [address] [address] [facility] [address] [place] [address] PCP - Hina HOOKS 12/28/24 03/28/25 [place] [address] [address] [facility] [address] [place] [address] PCP - Aerex 03/29/25 documented as of this encounter
--- OUTSIDE RECORDS SUMMARY | 2025-05-09 09:33 | XMS_ITS | Clinical Summary ---
Author Organization [facility] Address [address] [place] [address] Care Team Providers Care Equity Trader Name Role Phone Moses Keith MD Primary Care Provider [phone] Moses Keith MD Unavailable [phone] Allergies Active Allergy Reactions Criticality Noted Date [...] by mouth Daily 30 tablet 5 5 026 Active celecoxib (CeleBREX) 200 MG capsuleIndicatio ns:Primary [...] by mouth Daily 30 tablet 5 5 026 Active bisoprolol-hydro CHLOROthiazide (Ziac) 5-6.25 MG tabletIndication s:Essential hypertension Take 1 tablet by mouth Daily 90 tablet 1 5 026 Active SUMAtriptan (Imitrex) 100 MG tabletIndication s:Medication refill Take 1 tablet (100 mg) by mouth 1 (one) time if needed for migraine 27 tablet 1 5 Active FLUoxetine (PROzac) 40 MG capsuleIndicatio ns:Major depressive disorder with single episode, in remission Take 1 capsule (40 mg) by mouth in the morning and 1 capsule (40 mg) before bedtime. 180 capsule 1 5 Active predniSONE (Deltasone) 10 MG tabletIndication s:Edema, unspecified type 6 TABS every day X 3 DAYS, 4 TABS every day X 3 DAYS, 2 TABS every day X 3 DAYS, 1 TAB every day X 3 DAYS 39 tablet 5 Active FLUoxetine (PROzac) 40 MG capsuleIndicatio ns:Major depressive disorder with single episode, in remission Take 1 capsule (40 mg) by mouth in the morning and 1 capsule (40 mg) before bedtime. 180 capsule 5 025 Discontin ued(Reord er) predniSONE (Deltasone) 10 MG tabletIndication s:Edema, unspecified type 6 TABS every day X 3 DAYS, 4 TABS every day X 3 DAYS, 2 TABS every day X 3 DAYS, 1 TAB every day X 3 DAYS 39 tablet 5 025 Discontin ued(Reord er) Active Problems Problem Noted Date Diagnosed Date [...] Encounters Date Type Department Care Team Description 05/06/2025 Telephone [facility] [address] [place] [address] Ange Ballard MA 04/25/2025 Telephone [facility] [address] [place] [address] Maria Victoria Sewell MA 03/15/2025 Telephone [facility] [address] [place] [address] Janet Matute MA 02/18/2025 Orders Only [facility] [address] [place] [address] Ange Ballard MA Non-recurrent acute suppurative otitis media of right ear without spontaneous rupture of tympanic membrane 02/18/2025 Telephone [facility] [address] [place] [address] Ange Ballard MA 02/18/2025 Telephone [facility] [address] [place] [address] Moses Keith MD 02/15/2025 12:00 PM EDT Office Visit [facility] [address] [place] [address] [place]ows NP Non-recurrent acute suppurative otitis media of right ear without spontaneous rupture of tympanic membrane (Primary Dx); Non-recurrent acute serous otitis media of left ear; Bilateral hearing loss, unspecified hearing loss type; Acute non-recurrent pansinusitis 02/15/2025 Bamboo flowsheet [facility] [address] [place] [address] More Meadows NP 02/15/2025 Travel 02/11/2025 Telephone [facility] [address] [place] [address] Ange Ballard MA from Last 3 Months Immunizations Immunization Administration [...] EDT Office Visit [facility] [address] [place] [address] [place] [address] [place] [address] Health Maintenance Due Date Last Done Comments CT Colonography 1961 Colonoscopy 1961 Colorectal Cancer Screening 1960 FIT-DNA 1961 FIT 1961 FOBT 1960 Sigmoidoscopy 1961 Pap Smear 06/30/2022 06/30/2019, 06/30/2019 Cervical Cancer Screening 06/30/2024 HPV/Cotest 06/30/2024 06/30/2019, 06/30/2019 Medicare Annual Wellness (AWV) 05/20/2025 0 05/20/2024, 03/11/2023, 08/14/2022, Additional history exists Influenza Vaccine (#1) 2025 , 07/21/2023, 07/03/2022, Additional history exists Mammogram 12/10/2025 12/10/2024, 11/27, 08/20/2023, Additional history exists Goals Goal Patient Goal Type Associated Problems Recent Progress Patient-Stated? Author Help patient manage antidepressant medication Care Plan Patient on antidepressant monitoring plan No Gaviota Kwon MA Baseline PHQ-9 Care Plan Baseline PHQ-9 No Gaviota Kwon MA Procedures Procedure Name Priority Date/Time Associated Diagnosis Comments BI MAMMOGRAM SCREENING TOMOSYNTHESIS BILATERAL Routine 08/20/2022 12:00 PM EST from Last 3 Months or Most Recently Relevant to Health Maintenance Results * Bilateral screening mammogram with tomosynthesis (08/20/2022 12:00 PM EST) Anatomical Region Laterality Modality Breast Bilateral Mammography Narrative 08/20/2022 12:00 PM EST PERFORMED AT [facility] LOCATION:[id number] Procedure Note CONVERSION, GENERIC - 04/04/2023 PERFORMED AT [facility] LOCATION:[id number] Jamey Gray [place] [facility] [place]EDURES Final Result from Last 3 Months or Most Recently Relevant to Health Maintenance Additional Health Concerns Active Problems Noted Date Diagnosed Date Patient on antidepressant monitoring plan 2022 Baseline PHQ-9 07/14/2023 Insurance [employer]AGE Care Teams Equity Trader Relationship Specialty [place] [address] [place] [address] PCP - General Family Medicine 12/21/24 [place] [address] [place] [address] [facility] - [employer] 03/29/25
--- NOTE | 2025-05-09 09:37 | XR_ITS ---
The [address] [address] Patient Name: LUÍS GERMAIN MRN: [id number] date: 1960 Sex: F Assigned Patient Location: ED.MAIN Current Patient Location: ED.MAIN Accession/Order Number: [id number] Exam Date: 05/09/2025 10:42 Report Date: 05/09/2025 10:43 At the request of: DONNA FU MD Procedure: XR ankle RT min 3V RIGHT ANKLE - 3 views CLINICAL HISTORY: Atraumatic pain COMPARISON: Ankle series 06/29/2024 FINDINGS: Soft tissue swelling is present. Charcot's changes similar to the prior study. No definite acute bony process is seen. XR/XR ankle RT min 3V IMPRESSION: CHARCOT'S CHANGES WITHOUT ACUTE BONY PROCESS. Impression dictated by: Jose Smalls Jr., D.O. 05/09/2025 10:43 AM Dictation Location: [place] [address] Electronically authenticated by: [id number] Y Date: 05/09/2025 10:43
--- NOTE | 2025-05-09 09:37 | XR_ITS ---
The [address] [address] Patient Name: LUÍS GERMAIN MRN: [id number] date: 1960 Sex: F Assigned Patient Location: ED.MAIN Current Patient Location: ED.MAIN Accession/Order Number: [id number] Exam Date: 05/09/2025 10:41 Report Date: 05/09/2025 10:42 At the request of: DONNA FU MD Procedure: XR foot RT min 3V RIGHT FOOT - 3 views CLINICAL HISTORY: Atraumatic pain, history of Charcot foot COMPARISON: Right foot 03/22/2025. FINDINGS: Soft tissue swelling is present. Charcot's changes similar to the prior study with hardware seen involving the midfoot and forefoot similar to the prior study. No hardware fracture is seen. No acute bony process. XR/XR foot RT min 3V IMPRESSION: NO ACUTE FINDINGS. Impression dictated by: Jose Smalls Jr., D.O. 05/09/2025 10:42 AM Dictation Location: [facility] Electronically authenticated by: [id number] Y Date: 05/09/2025 10:42
--- NOTE | 2025-05-09 09:39 | ED.GENADUL1 ---
HPI HPI - General Adult General Chief complaint: Extremity Problem, Nontraumatic Stated complaint: lower extremity pain Time Seen by Provider: 05/09/25 09:33 Source: patient Mode of arrival: Wheelchair Limitations: no limitations History of Present Illness HPI narrative: 64-year-old female presents for pain in her right foot and her right ankle not associated with any trauma. She has a history of Charcot foot and had surgery 8 or 9 years ago. Over the past few days she has had increasing pain particular on the lateral aspect of the foot and the ankle. The pain is moderate to severe and worse when she walks on it. Related Data Home Medications ?Medication ?Instructions ?Recorded ?Confirmed bisoprolol 5 1 tab PO DAILY 05/09/25 05/09/25 mg-hydrochlorothiazide 6.25 mg tablet bupropion HCl 300 mg 24 hr tablet, 300 mg PO DAILY 05/09/25 05/09/25 extended release buspirone 30 mg tablet 30 mg PO DAILY 05/09/25 05/09/25 celecoxib 200 mg capsule 200 mg PO DAILY 05/09/25 05/09/25 prednisone 10 mg tablet 10 mg PO DAILY 05/09/25 05/09/25 tramadol 50 mg tablet 50 mg PO Q8H PRN pain 05/09/25 05/09/25 Previous Rx's ?Medication ?Instructions ?Recorded oxycodone-acetaminophen 5 mg-325 1 tab PO Q6H PRN pain #20 tabs 05/09/25 mg tablet (Percocet) Allergies Allergy/AdvReac Type Severity Reaction Status Date / Time No Known Drug Allergies Allergy Verified 05/09/25 09:32 Opioid HPI Opioid Management Most Recent Opioid Data: Last Pain Scale 8 Today, 09:47 Review of Systems ROS Narrative A ten point review of systems is negative except as noted above. PFSH PFSH Social History Little interest or pleasure in doing things: not at all Feeling down, depressed, or hopeless: not at all Exam Narrative Exam Narrative: Nurses note and vital signs reviewed and patient is not hypoxic. General: The patient appears well and in no apparent distress. Patient is resting comfortably on cart. Skin: Warm, dry, no pallor noted. There is no rash noted. Head: Normocephalic, atraumatic Eye: Normal conjunctiva, no drainage Ears, Nose, Mouth, and Throat: oral mucosa is moist. Nares patent. Cardiovascular: Regular Rate and Rhythm Respiratory: Patient is in no distress, no accessory muscle use Back: non-tender GI: Soft and nontender Musculoskeletal: The right foot and ankle are examined. No erythema bruising or rash. She seems to have some diffuse tenderness on the lateral aspect of her right foot and ankle. No calf tenderness. Neurological: A&O, normal speech Psychiatric: Cooperative Constitutional Vital Signs, click to edit/add: Last Vital Signs Temp 98.2 F 05/09/25 09:32 Pulse 84 05/09/25 09:32 Resp 18 05/09/25 09:32 BP 170/98 H 05/09/25 09:32 Pulse Ox 98 05/09/25 09:32 O2 Del Method Room Air 05/09/25 09:32 Course Vital Signs Vital signs: Vital Signs Temperature 98.2 F 05/09/25 09:32 Pulse Rate 84 05/09/25 09:32 Respiratory Rate 18 05/09/25 09:32 Blood Pressure 170/98 H 05/09/25 09:32 Pulse Oximetry 98 05/09/25 09:32 Oxygen Delivery Method Room Air 05/09/25 09:32 Temperature 98.2 F 05/09/25 09:32 Pulse Rate 84 05/09/25 09:32 Respiratory Rate 18 05/09/25 09:32 Blood Pressure 170/98 H 05/09/25 09:32 Pulse Oximetry 98 05/09/25 09:32 Oxygen Delivery Method Room Air 05/09/25 09:32 Medical Decision Making MDM Narrative Medical decision making narrative: X-rays are reviewed and there are no acute findings. She has been given IM Toradol and prescribed Percocet and she will follow-up with her established straightener and aligner. Treatment diagnosis and follow-up were discussed with the patient. Differential Diagnosis Differential Diagnosis: Fracture, Charcot joint, arthritis Imaging Data Right foot and ankle x-rays: Radiologist's impression: ITS Impressions Ankle X-Ray 05/09/25 09:37 IMPRESSION: CHARCOT'S CHANGES WITHOUT ACUTE BONY PROCESS. Impression dictated by: Jose Smalls Jr., D.O. 05/09/2025 10:43 AM Dictation Location: [place] [address] Electronically authenticated by: [id number] Y Date: 05/09/2025 10:43 Foot X-Ray 05/09/25 09:37 IMPRESSION: NO ACUTE FINDINGS. Impression dictated by: Jose Smalls Jr., D.O. 05/09/2025 10:42 AM Dictation Location: [employer] Electronically authenticated by: [id number] Y Date: 05/09/2025 10:42 Discharge Plan Discharge Chief Complaint: Extremity Problem, Nontraumatic Clinical Impression: Charcot joint of right foot Patient Disposition: Home, Self-Care Time of Disposition Decision: 10:55 Condition: Good Mode of Transportation: Private Vehicle Prescriptions / Home Meds: New oxycodone-acetaminophen [Percocet] 5-325 mg tablet 1 tab PO Q6H PRN (Reason: pain) Qty: 20 0RF No Action bisoprolol-hydrochlorothiazide 5-6.25 mg tablet 1 tab PO DAILY buspirone 30 mg tablet 30 mg PO DAILY bupropion HCl 300 mg tablet extended release 24 hr 300 mg PO DAILY celecoxib 200 mg capsule 200 mg PO DAILY tramadol 50 mg tablet 50 mg PO Q8H PRN (Reason: pain) prednisone 10 mg tablet 10 mg PO DAILY Print Language: Liberian Instructions: Arthralgia (ED), Metatarsalgia (DC) Referrals: GRETA SANDERS [Primary Care Provider, Family Practice] - 1 week
[2025-05-09] MEDS: KETOROLAC TROMETHAMINE 60 MG/2 ML VIAL IM (11:15)
[2025-05-09 11:29] VITALS: BP 168/88; PULSE 84; O2SAT 99
== END 2025-05-09 11:30 | disposition home or self-care (01) ==
PROVIDERS: Emergency Provider Emergency Medicine; PCP Family Medicine
DX: M14.671 Charcot's joint, right ankle and foot (principal); M79.671 Pain in right foot; M25.571 Pain in right ankle and joints of right foot
CPT/HCPCS: 73610; 73630; 96372; 99284; J1885